=== PATIENT | female | born 1955 | race Caucasian/White ===

== ENCOUNTER 2018-01-31 12:59 | Observation (INO) | payer OTHER ==
[2018-01-31] MEDS ORDERED: Acetaminophen 325 MG Tab PO PRN (13:26)
[2018-01-31] MEDS ORDERED: Acetaminophen 650 MG Supp RECTAL PRN (13:27)
[2018-01-31] MEDS ORDERED: Bisacodyl 5 MG Tab PO ONE ×2 (15:00→21:00)
[2018-01-31] MEDS ORDERED: Polyethylene Glycol 3350 Powder 238 GM Bot PO ONE (17:00)
[2018-01-31] MEDS ORDERED: Carvedilol 25 MG Tab PO SCH (17:00)
--- NOTE | 2018-01-31 20:38 | PCM.HP ---
H&P History of Present Illness - General Date of Service: 01/31/18 Admit Problem/Dx: Admission Diagnosis/Problem Admission Diagnosis/Problem Weight loss, anemia, abdominal pain, vomiting Source of Information: Patient, Provider History Limitations: Reports: No Limitations - History of Present Illness Initial Comments - Free Text/Narative: This 62 year old white female is admitted for a bowel prep to undergo EGD and colonoscopy tomorrow for weight loss, vomiting, abdominal pain and anemia. She has never had an EGD. She underwent colonoscopy she says greater than eight years ago. She underwent right breast lumpectomy for a 2.3 cm infiltrating ductal carcinoma in 2014 with negative sentinel node. She had follow up breast radiation and chemotherapy. She is admitted for the prep as it is felt she can not do it at home. She has trouble with magnesium (low) and potassium (high). - Related Data Allergies/Adverse Reactions: Allergies Allergy/AdvReac Type Severity Reaction Status Date / Time hydrochlorothiazide AdvReac .hypokalemi Verified 02/18/16 12:06 a Home Medications: Home Meds Carvedilol [Coreg] 25 mg PO BID 08/22/15 [History] Fish Oil/[place]-3 Fatty Acids [Fish Oil 1,000 MG] 1 each PO BID 08/22/15 [History ] Pravastatin [Pravachol] 80 mg PO BEDTIME 08/22/15 [History] Urea [Urea 40% Crm] 1 applic TOP DAILY 08/22/15 [History] metFORMIN [Glucophage] 500 mg PO DAILY 08/22/15 [History] Cholecalciferol (Vitamin D3) [Vitamin D3] 2,000 unit PO DAILY 12/07/15 [History] Lactobacillus Rhamnosus GG [Culturelle] 1 cap PO BID #60 cap 12/18/15 [Rx] Acetaminophen [Pain Relief] 650 mg PO Q6HR PRN 01/28/18 [History] Cyanocobalamin (Vitamin B-12) [Vitamin B-12] 1,000 mcg SL DAILY 01/28/18 [ History] Magnesium 200 mg PO BID 01/28/18 [History] Lisinopril 20 mg PO BID 01/31/18 [History] Loperamide [Imodium] 2 mg PO TID 01/31/18 [History] Past Medical History HEENT History: Reports: Cataract, Impaired Vision Other HEENT History: wears glasses Cardiovascular History: Reports: High Cholesterol, Hypertension Gastrointestinal History: Reports: Jaundice Other Gastrointestinal History: as a child Genitourinary History: Reports: UTI, Recurrent 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: Musculoskeletal History: Reports: Amputation, Arthritis Neurological History: Reports: Neuropathy, Diabetic Endocrine/Metabolic History: Reports: Diabetes, Type II Hematologic History: Reports: Anemia, Blood Transfusion(s) Immunologic History: Reports: Other (See Below) Other Immunologic History: chemo Oncologic (Cancer) History: Reports: Breast - Infectious Disease History Infectious Disease History: Reports: C-Difficile Other Infectious Disease History: 2 years ago - Past Surgical History GI Surgical History: Reports: Colonoscopy Female Surgical History: Reports: Breast Biopsy Musculoskeletal Surgical History: Reports: Amputation Other Musculoskeletal Surgeries/Procedures:: left foot all 5 toes amputated Oncologic Surgical History: Reports: Biopsy of Breast, Lumpectomy Other Oncologic Surgeries/Procedures: Right side Dermatological Surgical History: Reports: Skin Biopsy, Skin Graft Social & Family History - Family History Family Medical History: Noncontributory HEENT: Reports: Impaired Vision Cardiac: Reports: CAD, [place], Pacemaker Other Cardiac Family History: father. sister Respiratory: Reports: Asthma Other Respiratory Family Hisory: daughter GI: Reports: Hiatal Hernia Other GI Family History: daughter Musculoskeletal: Reports: Other (See Below) Other Musculoskeletal Family History: scoliosis Neurological: Reports: Dementia Other Neurological Family History: grandmother Endocrine/Metabolic: Reports: Diabetes, type II Other Endocrine/Metabolic Family History: grandmother Oncologic: Reports: Lymphoma Other Oncologic Family History: granddaughter - Tobacco Use Smoking Status *Q: Former Smoker Years of Tobacco use: 20 Packs/Tins Daily: 1.5 Used Tobacco, but Quit: Yes Month Tobacco Last Used: 12 years Second Hand Smoke Exposure: No - Caffeine Use Caffeine Use: Reports: None - Alcohol Use Days Per Week of Alcohol Use: 0 Number of Drinks Per Day: 2 Total Drinks Per Week: 0 - Recreational Drug Use Recreational Drug Use: No H&P Review of Systems - Review of Systems: Review Of Systems: See Below General: Reports: Weight Loss, Other (Vomiting. ) HEENT: Reports: No Symptoms Pulmonary: Reports: No Symptoms Cardiovascular: Reports: No Symptoms Gastrointestinal: Reports: Abdominal Pain, Vomiting Genitourinary: Reports: No Symptoms Musculoskeletal: Reports: No Symptoms Skin: Reports: No Symptoms Psychiatric: Reports: No Symptoms Neurological: Reports: No Symptoms Hematologic/Lymphatic: Reports: No Symptoms Exam - Exam Exam: See Below - Vital Signs Vital Signs: Last Vital Signs Temp 100.2 F 01/31/18 19:00 Pulse 83 01/31/18 19:00 Resp 16 01/31/18 19:00 BP 128/51 L 01/31/18 19:00 Pulse Ox 94 L 01/31/18 19:00 Weight: 184 lb - Exam General: Alert, Oriented, Cooperative Lungs: Clear to Auscultation, Normal Respiratory Effort Cardiovascular: Regular Rate, Regular Rhythm GI/Abdominal Exam: Normal Bowel Sounds, Soft, Non-Tender, No Organomegaly, No Distention (Female) Exam: Other (Breast without masses. Well healed right breast scar. ) Back Exam: Normal Inspection, Full Range of Motion Extremities: Normal Inspection, Other (Axillae without masses. ) Skin: Warm, Dry, Intact Neuro Extensive - Mental Status: Alert, Oriented x3, Normal Mood/Affect, Normal Cognition Psychiatric: Alert, Normal Affect, Normal Mood - Patient Data Lab Results Last 24 hrs: Laboratory Results - last 24 hr 01/31/18 01/31/18 01/31/18 Range/Units 13:42 13:42 14:00 Hgb 8.9 L (12.0-15.0) g/dL Potassium 4.9 (3.6-5.2) mmol/L Magnesium 1.4 L (1.8-2.4) mg/dL Result Diagrams: 01/31/18 13:42 01/31/18 14:00 *Q Meaningful Use (ADM) - VTE *Q VTE Criteria *Q: - Stroke *Q Stroke Criteria *Q: - AMI *Q AMI Criteria *Q: - Problem List (1) Anemia SNOMED Code(s): 342816186 ICD Code: D64.9 - ANEMIA, UNSPECIFIED Status: Acute Current Visit: Yes Problem List Initiated/Reviewed/Updated: Yes Orders Last 24hrs: Active Orders 24 hr Category Date Time Status Admission Status [Patient Status] [ADT] Routine ADT 01/31/18 13:05 Active Vital Signs [RC] Q4H Care 01/31/18 13:22 Active Clear Liquid Diet [DIET] Diet 01/31/18 Dinner Active NPO After Midnight [Nothing per Oral After Midnight Diet 01/31/18 Dinner Active Diet] [DIET] Acetaminophen [Tylenol] Med 01/31/18 13:26 Active 650 mg PO Q4H PRN Acetaminophen [Tylenol] Med 01/31/18 13:27 Active 650 mg RECTAL Q4H PRN Bisacodyl [Dulcolax] Med 01/31/18 21:00 Once 10 mg PO ONETIME ONE Carvedilol [Coreg] Med 01/31/18 17:00 Active 25 mg PO BIDMEALS Cholecalciferol (Vitamin D3) [Vitamin D3] Med 02/01/18 09:00 Active 2,000 units PO DAILY Cyanocobalamin (Vitamin B12) [Vitamin B12] Med 02/01/18 09:00 Active 1,000 mcg PO DAILY Dextrose 5%-Lactated Ringers 1,000 ml Med 01/31/18 13:30 Active IV ASDIRECTED FLU Vacc [id number] 36Mos UP/PF [Fluzone Quad ] Med 02/01/18 16:00 Once 60 mcg IM ONETIME ONE Lactobacillus Rhamnosus GG [Culturelle] Med 01/31/18 21:00 Active 1 cap PO BID Magnesium Oxide Med 02/01/18 09:00 Active 200 mg PO DAILY Pravastatin [Pravachol] Med 01/31/18 21:00 Active 80 mg PO BEDTIME Medication Orders Acetaminophen (Tylenol) 650 mg PO Q4H PRN PRN Reason: PAIN Acetaminophen (Tylenol) 650 mg RECTAL Q4H PRN PRN Reason: PAIN Bisacodyl (Dulcolax) 10 mg PO ONETIME ONE Stop: 01/31/18 21:01 Carvedilol (Coreg) 25 mg PO BIDMEALS REPLACED BY [facility] Last Admin: 01/31/18 16:52 Dose: 25 mg Cholecalciferol (Vitamin D3) 2,000 units PO DAILY REPLACED BY [facility] Cyanocobalamin (Vitamin B12) 1,000 mcg PO DAILY REPLACED BY [facility] Dextrose/Lactated Ringer's (Dextrose 5%-Lactated Ringers) 1,000 mls @ 150 mls/ hr IV ASDIRECTED REPLACED BY [facility] Influenza Virus Vaccine (Fluzone Quad ) 60 mcg IM ONETIME ONE Stop: 02/01/18 16:01 Lactobacillus Rhamnosus (Culturelle) 1 cap PO BID REPLACED BY [facility] Magnesium Oxide (Magnesium Oxide) 200 mg PO DAILY REPLACED BY [facility] Pravastatin Sodium (Pravachol) 80 mg PO BEDTIME YAKOV Assessment/Plan Comment:: Anemia, weight loss, vomiting, abdominal pain. Plan: EGD, colonoscopy.
[2018-01-31] MEDS: Dextrose 5%-Lactated Ringers 1,000 ML IV SCH (20:53)
[2018-01-31] MEDS ORDERED: Lactobacillus Rhamnosus GG (Probiotic) Cap PO SCH (21:00)
[2018-01-31] MEDS ORDERED: Pravastatin 20 MG Tab PO SCH (21:00)
[2018-02-01] MEDS: Dextrose 5%-Lactated Ringers 1,000 ML IV SCH ×2 (03:18→09:33)
[2018-02-01] MEDS ORDERED: Magnesium Sulfate/Water 2 GM in Premix Bag 1 BAG IV ONE ×2 (06:27→07:00)
[2018-02-01] MEDS ORDERED: Midazolam 1 MG/ML 2 ML SDV ONE (08:23)
[2018-02-01] MEDS ORDERED: fentaNYL 100 MCG/2 ML SDV ONE (08:23)
[2018-02-01] MEDS ORDERED: Propofol 200 MG/20 ML SDV ONE ×2 (08:23→10:21)
[2018-02-01] MEDS ORDERED: Cholecalciferol (Vitamin D3) 1,000 Unit Tab PO SCH (09:00)
[2018-02-01] MEDS ORDERED: Magnesium Oxide 400 MG Tab PO SCH (09:00)
[2018-02-01] MEDS ORDERED: Cyanocobalamin (Vitamin B12) 1,000 MCG Tab PO SCH (09:00)
[2018-02-01 11:32] VITALS: BP 175/73
--- NOTE | 2018-02-01 14:01 | OR ---
DATE OF PROCEDURE: 02/01/2018 PREOPERATIVE DIAGNOSES: 1. Anemia. 2. Weight loss. 3. Vomiting. 4. Abdominal pain. POSTOPERATIVE DIAGNOSES: 1. Anemia. 2. Weight loss. 3. Vomiting. 4. Abdominal pain. 5. Hiatal hernia. 6. Pandiverticulosis. 7. No obvious cause for bleeding. PROCEDURES PERFORMED: 1. Esophagogastroduodenoscopy. 2. Colonoscopy to the cecum. SURGEON: Erik Almonte MD ANESTHESIA: IV anesthesia with monitored anesthesia care. INDICATION: This 62-year-old white female is here for upper and lower endoscopy because of anemia, weight loss, abdominal pain, and vomiting. I counseled her for the procedures, including risks and alternatives, and she gave her informed consent to proceed. DESCRIPTION OF PROCEDURE: The patient was placed in the left lateral decubitus position. IV anesthesia was administered by Anesthesia Service. Time-out was held. The flexible video Olympus upper endoscope was passed through her mouth, down her esophagus, and into her stomach. The scope was easily passed through the pylorus into the duodenum, reaching its third portion. The scope was then slowly withdrawn, examining the mucosa throughout. The duodenal mucosa appeared unremarkable. The scope was brought up to the pylorus. The antrum appeared unremarkable. The scope was retroflexed. The proximal stomach appeared unremarkable except for a hiatal hernia. The scope was straightened and brought up to this hiatal hernia. It was fairly small, approximately 2 cm. The GE junction appeared unremarkable. The scope was then brought up through the unremarkable-appearing esophagus and was removed. Next, a rectal exam was performed which was unremarkable. The flexible video Olympus colonoscope was introduced through her anus, up her rectum, and out her colon, all the way to the cecum. En route, we saw multiple both left and right-sided diverticula. There was no bleeding or inflammation associated with any of them. Once the cecum was reached, the scope was slowly withdrawn, examining the mucosa throughout. No additional mucosal abnormalities were noted. No neoplastic lesions were seen. The scope was retroflexed in the rectum, with the distal rectum appearing unremarkable. The scope was straightened and removed. She tolerated the procedure well. Erik Almonte MD /[id number]
[2018-02-01] MEDS ORDERED: FLU Vacc QS 2017-18 (36mos UP)/PF 60 MCG/0.5 ML Syringe IM ONE (16:00)
--- NOTE | 2018-02-03 11:28 | ANES ---
DATE OF SERVICE: 01/31/2018 ADDENDUM: I did give the patient a total of 400 mg of propofol for her procedure. Nav Rios CRNA /[id number]
== END 2018-02-01 12:50 | disposition home or self-care (01) ==
LOC: JP.MS 12:59 → UNDOADMIN 12:59 → JP.MS 13:05 → EDSTATUS 02-01 11:30 → UNDODISIN 02-01 12:50
PROVIDERS: ADMIT Surgery; ATTEND Surgery
DX: K44.9 Diaphragmatic hernia without obstruction or gangrene (principal); K57.30 Diverticulosis of large intestine without perforation or abscess without bleeding; I10 Essential (primary) hypertension; E78.00 Pure hypercholesterolemia, unspecified; E11.40 Type 2 diabetes mellitus with diabetic neuropathy, unspecified; F17.200 Nicotine dependence, unspecified, uncomplicated; Z88.8 Allergy status to other drugs, medicaments and biological substances; Z79.84 Long term (current) use of oral hypoglycemic drugs; Z79.899 Other long term (current) drug therapy; Z87.891 Personal history of nicotine dependence
CPT/HCPCS: 36415; 43235; 45378; 80048; 83735; 84132; 85018; 85025; A9270; J1642; J2250; J2704; J3010; J3475; J7042

== ENCOUNTER 2018-04-18 13:56 | Emergency (ER) | payer OTHER ==
[2018-04-18 14:25] VITALS: BP 141/65
--- NOTE | 2018-04-18 15:24 | EDM.PDOC ---
ED HPI GENERAL MEDICAL PROBLEM - General Chief Complaint: General Stated Complaint: WEAK, SHORTNESS OF BREATH, NO STRENGTH IN ARMS Time Seen by Provider: 04/18/18 14:55 Source of Information: Reports: Patient, Family History Limitations: Reports: No Limitations - History of Present Illness INITIAL COMMENTS - FREE TEXT/NARRATIVE: Raquel presents today with complaints of generalized significant weakness, chills , feeling tired and sleepy, no appetite and dull ache to her head for three days. She denies fever, nausea, vomiting, change in bowel and bladder function, wounds , rashes or recent injury. - Related Data Allergies Allergy/AdvReac Type Severity Reaction Status Date / Time hydrochlorothiazide AdvReac .hypokalemi Verified 04/18/18 14:15 a Home Meds: Home Meds Carvedilol [Coreg] 25 mg PO BID 08/22/15 [History] Fish Oil/[place]-3 Fatty Acids [Fish Oil 1,000 MG] 1,000 mg PO BID 08/22/15 [ History] Pravastatin [Pravachol] 80 mg PO BEDTIME 08/22/15 [History] Urea [Urea 40% Crm] 1 applic TOP DAILY 08/22/15 [History] metFORMIN [Glucophage] 500 mg PO DAILY 08/22/15 [History] Cyanocobalamin (Vitamin B-12) [Vitamin B-12] 1,000 mcg SL DAILY 01/28/18 [ History] Loperamide [Imodium] 2 mg PO QID PRN 01/31/18 [History] Acetaminophen [Tylenol] 650 mg PO Q4H PRN tablet 02/01/18 [Rx] Cholecalciferol (Vitamin D3) [Vitamin D3] 2,000 units PO DAILY tablet 02/01/18 [Rx] Lactobacillus Rhamnosus GG [Culturelle] 1 cap PO BID cap 02/01/18 [Rx] Magnesium Oxide 250 mg PO DAILY 02/23/18 [History] Vitamin E 1,000 unit PO DAILY 03/19/18 [History] Zinc 50 mg PO DAILY 03/19/18 [History] Past Medical History HEENT History: Reports: Cataract, Impaired Vision Other HEENT History: wears glasses Cardiovascular History: Reports: High Cholesterol, Hypertension Gastrointestinal History: Reports: Jaundice Other Gastrointestinal History: as a child Genitourinary History: Reports: UTI, Recurrent 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: Musculoskeletal History: Reports: Amputation, Arthritis Neurological History: Reports: Neuropathy, Diabetic Endocrine/Metabolic History: Reports: Diabetes, Type II Hematologic History: Reports: Anemia, Blood Transfusion(s) Immunologic History: Reports: Other (See Below) Other Immunologic History: chemo Oncologic (Cancer) History: Reports: Breast - Infectious Disease History Infectious Disease History: Reports: C-Difficile Other Infectious Disease History: 2 years ago - Past Surgical History GI Surgical History: Reports: Colonoscopy Female Surgical History: Reports: Breast Biopsy Musculoskeletal Surgical History: Reports: Amputation Other Musculoskeletal Surgeries/Procedures:: left foot all 5 toes amputated Oncologic Surgical History: Reports: Biopsy of Breast, Lumpectomy Other Oncologic Surgeries/Procedures: Right side Dermatological Surgical History: Reports: Skin Biopsy, Skin Graft Social & Family History - Family History Family Medical History: Noncontributory HEENT: Reports: Impaired Vision Cardiac: Reports: CAD, [place], Pacemaker Other Cardiac Family History: father. sister Respiratory: Reports: Asthma Other Respiratory Family Hisory: daughter GI: Reports: Hiatal Hernia Other GI Family History: daughter Musculoskeletal: Reports: Other (See Below) Other Musculoskeletal Family History: scoliosis Neurological: Reports: Dementia Other Neurological Family History: grandmother Endocrine/Metabolic: Reports: Diabetes, type II Other Endocrine/Metabolic Family History: grandmother Oncologic: Reports: Lymphoma Other Oncologic Family History: granddaughter - Tobacco Use Smoking Status *Q: Never Smoker - Caffeine Use Caffeine Use: Reports: None ED ROS GENERAL - Review of Systems Review Of Systems: See Below Constitutional: Reports: Chills, Malaise, Weakness, Fatigue, Decreased Appetite , Weight Loss. Denies: Fever, Night Sweats, Diaphoresis HEENT: Reports: No Symptoms Respiratory: Reports: Shortness of Breath, Other (SOB with activity ). Denies: Wheezing, Cough, Sputum Cardiovascular: Denies: Chest Pain, Blood Pressure Problem, Dyspnea on Exertion , Edema, Lightheadedness, Palpitations, PND, Syncope Endocrine: Reports: Fatigue GI/Abdominal: Reports: Abdominal Pain, Other (Pain to RUQ, she reports it is due to cancer and has not worsened. ). Denies: Black Stool, Bloody Stool, Constipation, Diarrhea, Difficulty Swallowing, Flatus, Hematemesis, Hematochezia , Nausea, Vomiting : Denies: Flank Pain, Frequency, Hematuria, Urgency, Urinary Retention Musculoskeletal: Denies: Joint Pain, Joint Swelling, Muscle Pain, Muscle Stiffness Skin: Reports: Pallor, Dryness. Denies: Jaundice, Diaphoresis, Bruising, Pruritis, Rash, Erythema, Wound, Lesions Neurological: Reports: Headache, Weakness, Other. Denies: Confusion, Dizziness , Numbness, Tingling Psychiatric: Reports: No Symptoms Hematologic/Lymphatic: Reports: No Symptoms Immunologic: Reports: No Symptoms ED EXAM, GENERAL - Physical Exam Exam: See Below Free Text/Narrative:: Raquel presents to the emergency room today with complaints of generalized significant weakness, chills, feeling tired and sleepy, no appetite and dull ache to her head for three days. She denies fever, nausea, vomiting, change in bowel and bladder function, wounds , rashes or recent injury. She is currently taking an oral chemotherapy agent for primary breast cancer with metastasis to the liver. History of anemia and blood tranfusions. Exam Limited By: No Limitations General Appearance: Alert, WD/WN, Moderate Distress, Other (Very weak) Eye Exam: Bilateral Eye: EOMI, Normal Inspection, PERRL Ears: Normal External Exam, Normal Canal, Hearing Grossly Normal, Normal TMs Ear Exam: Bilateral Ear: Auricle Normal, Canal Normal, TM normal Nose: Normal Inspection, Normal Mucosa, No Blood Throat/Mouth: Normal Inspection, Normal Lips, Normal Gums, Normal Oropharynx, Normal Voice, No Airway Compromise, Other (Dentures in place. ) Head: Atraumatic, Normocephalic Neck: Normal Inspection, Supple, Non-Tender, Full Range of Motion. No: Lymphadenopathy (R), Lymphadenopathy (L) Respiratory/Chest: No Respiratory Distress, Lungs Clear, Normal Breath Sounds, No Accessory Muscle Use, Chest Non-Tender Cardiovascular: Normal Peripheral Pulses, Regular Rate, Rhythm, No Murmur, No Rub, Other (Noted bilateral lower extremity edema 2+ from knees to feet. ) Peripheral Pulses: 2+: Radial (L), Radial (R) GI/Abdominal: Normal Bowel Sounds, Soft, No Distention, Tender, Other ( Tenderness over RUQ). No: Distended, Guarding, Rigid, Rebound Back Exam: Normal Inspection, Full Range of Motion. No: CVA Tenderness (R), CVA Tenderness (L) Extremities: Normal Inspection, Normal Range of Motion, Non-Tender, Slow Capillary Refill, Pallor, Other (edema 2+ bilateral lower extremities) Neurological: Alert, Oriented, Normal Cognition, No Motor/Sensory Deficits, Other (Reflexes present) Psychiatric: Normal Affect, Normal Mood Skin Exam: Warm, Dry, Intact, No Rash, Pallor Lymphatic: No Adenopathy Course - Vital Signs Last Recorded V/S: Last Vital Signs Temp 37.2 C 04/18/18 14:23 Pulse 72 04/18/18 14:23 Resp 14 04/18/18 14:23 BP 141/65 H 04/18/18 14:23 Pulse Ox 98 04/18/18 14:23 - Orders/Labs/Meds Orders: Active Orders 24 hr Category Date Time Status UA W/MICROSCOPIC [URIN] Stat Lab 04/18/18 15:15 Ordered Saline Lock Insert [OM.PC] Routine Oth 04/18/18 16:16 Ordered Labs: Laboratory Tests 04/18/18 04/18/18 04/18/18 Range/Units 15:15 15:26 15:26 WBC 8.1 (4.5-11.0) K/uL RBC 2.82 L (3.30-5.50) M/uL Hgb 8.2 L (12.0-15.0) g/dL Hct 28.2 L (36.0-48.0) % MCV 100 H (80-98) fL MCH 29 (27-31) pg MCHC 29 L (32-36) % Plt Count 392 (150-400) K/uL Neut % (Auto) 76 H (36-66) % Lymph % (Auto) 12 L (24-44) % Trego % (Auto) 11 H (2-6) % Eos % (Auto) 1 L (2-4) % Baso % (Auto) 0 (0-1) % Sodium 136 L (140-148) mmol/L Potassium 5.0 (3.6-5.2) mmol/L Chloride 97 L (100-108) mmol/L Carbon Dioxide 26 (21-32) mmol/L Anion Gap 18.0 H (5.0-14.0) mmol/L BUN 42 H D (7-18) mg/dL Creatinine 1.2 H (0.6-1.0) mg/dL Est Cr Clr Drug Dosing 41.44 mL/min Estimated GFR (MDRD) 45 L (>60) Glucose 81 (74-106) mg/dL Calcium 8.1 L (8.5-10.1) mg/dL Magnesium 2.1 D (1.8-2.4) mg/dL Total Bilirubin 0.5 (0.2-1.0) mg/dL AST 30 (15-37) U/L ALT 16 D (12-78) U/L Alkaline Phosphatase 417 H D (46-116) U/L Ammonia (11-32) mmol/L Total Protein 7.0 (6.4-8.2) g/dL Albumin 1.4 L (3.4-5.0) g/dL Globulin 5.6 H (2.3-3.5) g/dL Albumin/Globulin Ratio 0.3 L (1.2-2.2) TSH, Ultra Sensitive 3.016 (0.358-3.740) uIU/mL Urine Color Yellow Urine Appearance Clear Urine pH 5.0 (4.5-8.0) Ur Specific Valentine 1.015 (1.008-1.030) Urine Protein Negative (NEGATIVE) mg/dL Urine Glucose (UA) Normal (NEGATIVE) mg/dL Urine Ketones Negative (NEGATIVE) mg/dL Urine Occult Blood Negative (NEGATIVE) Urine Nitrite Negative (NEGATIVE) Urine Bilirubin Negative (NEGATIVE) Urine Urobilinogen Normal (NORMAL) mg/dL Ur Leukocyte Esterase Moderate (NEGATIVE) Urine RBC 0-5 (0-5) Urine WBC 0-5 (0-5) Ur Epithelial Cells Few Amorphous Sediment Rare Urine Bacteria Not seen Urine Mucus Not seen 04/18/18 Range/Units 16:16 WBC (4.5-11.0) K/uL RBC (3.30-5.50) M/uL Hgb (12.0-15.0) g/dL Hct (36.0-48.0) % MCV (80-98) fL MCH (27-31) pg MCHC (32-36) % Plt Count (150-400) K/uL Neut % (Auto) (36-66) % Lymph % (Auto) (24-44) % Trego % (Auto) (2-6) % Eos % (Auto) (2-4) % Baso % (Auto) (0-1) % Sodium (140-148) mmol/L Potassium (3.6-5.2) mmol/L Chloride (100-108) mmol/L Carbon Dioxide (21-32) mmol/L Anion Gap (5.0-14.0) mmol/L BUN (7-18) mg/dL Creatinine (0.6-1.0) mg/dL Est Cr Clr Drug Dosing mL/min Estimated GFR (MDRD) (>60) Glucose (74-106) mg/dL Calcium (8.5-10.1) mg/dL Magnesium (1.8-2.4) mg/dL Total Bilirubin (0.2-1.0) mg/dL AST (15-37) U/L ALT (12-78) U/L Alkaline Phosphatase (46-116) U/L Ammonia 7 L (11-32) mmol/L Total Protein (6.4-8.2) g/dL Albumin (3.4-5.0) g/dL Globulin (2.3-3.5) g/dL Albumin/Globulin Ratio (1.2-2.2) TSH, Ultra Sensitive (0.358-3.740) uIU/mL Urine Color Urine Appearance Urine pH (4.5-8.0) Ur Specific Valentine (1.008-1.030) Urine Protein (NEGATIVE) mg/dL Urine Glucose (UA) (NEGATIVE) mg/dL Urine Ketones (NEGATIVE) mg/dL Urine Occult Blood (NEGATIVE) Urine Nitrite (NEGATIVE) Urine Bilirubin (NEGATIVE) Urine Urobilinogen (NORMAL) mg/dL Ur Leukocyte Esterase (NEGATIVE) Urine RBC (0-5) Urine WBC (0-5) Ur Epithelial Cells Amorphous Sediment Urine Bacteria Urine Mucus Meds: Medications Discontinued Medications Generic Name Dose Route Start Last Admin Trade Name Freq PRN Reason Stop Dose Admin Sodium Chloride 1,000 mls @ 500 mls/hr 04/18/18 16:30 04/18/18 16:46 Normal Saline IV 500 mls/hr ASDIRECTED YAKOV Administration Sodium Chloride 10 ml 04/18/18 16:16 04/18/18 16:46 Saline Flush FLUSH 10 ml ASDIRECTED PRN Administration Keep Vein Open - Re-Assessments/Exams Free Text/Narrative Re-Assessment/Exam: 04/18/18 16:18 Lab work completed reviewed. We will add on an ammonia level. UA pending. We will administer sodium chloride 1000ml IV over 2 hours for hydration. Use of home health, meals on weals, SSN/SSBN ASSISTANT NAVIGATOR services and use of protein powder/ drinks safe for diabetes discussed with patient and her family. Imaging of brain pending this week for evaluation of metastasis. 04/18/18 17:20 Patient resting, states she is feeling better. UA negative, ammonia level normal. Patient will be discharged to home with family. Dr. Ramirez in agreement with plan. Departure - Departure Time of Disposition: 17:33 Disposition: Home, Self-Care 01 Clinical Impression: Dehydration, Weakness generalized, Liver metastasis Breast cancer Qualifiers: Breast location: unspecified site of breast Laterality: unspecified laterality Qualified Code(s): C50.919 - Malignant neoplasm of unspecified site of unspecified female breast - Discharge Information Instructions: Weakness, [id number], Dehydration, Adult, [id number] Referrals: Ansley Bolden PA [Primary Care Provider] - Forms: ED Department Discharge Additional Instructions: You have been evaluated and treated for dehydration, generalized weakness with a history of breast cancer and liver metastasis. Try to push oral fluids, protein. Follow up with Ansley SANTIAGO. Think about use home health, meals on weals, SSN/SSBN ASSISTANT NAVIGATOR services and use of protein powder/drinks safe for diabetes if appropriate as determined by your primary provider. Take your medications as prescribed. Imaging of brain pending this week. Return for worsening, issues or concern. - My Orders Last 24 Hours: My Active Orders 04/18/18 15:15 UA W/MICROSCOPIC [URIN] Stat 04/18/18 16:16 Saline Lock Insert [OM.PC] Routine - Assessment/Plan Last 24 Hours: My Active Orders 04/18/18 15:15 UA W/MICROSCOPIC [URIN] Stat 04/18/18 16:16 Saline Lock Insert [OM.PC] Routine Assessment:: Dehydration Breast cancer Liver metastasis Generalized weakness Plan: Patient evaluated and treated for dehydration, generalized weakness with a history of breast cancer and liver metastasis. Try to push oral fluids, protein. Follow up with Ansley SANTIAGO. Think about use home health, meals on weals, SSN/SSBN ASSISTANT NAVIGATOR services and use of protein powder/drinks safe for diabetes if appropriate as determined by your primary provider. Take your medications as prescribed. Imaging of brain pending this week. Return for worsening, issues or concern.
[2018-04-18] MEDS ORDERED: Sodium Chloride 0.9% 10 ML Syringe FLUSH PRN (16:16)
[2018-04-18] MEDS ORDERED: Sodium Chloride 0.9% 1,000 ML IV SCH (16:30)
== END 2018-04-18 19:12 | disposition home or self-care (01) ==
LOC: JP.ED 13:56
DX: E86.0 Dehydration (principal); C78.7 Secondary malignant neoplasm of liver and intrahepatic bile duct; C50.919 Malignant neoplasm of unspecified site of unspecified female breast; E11.9 Type 2 diabetes mellitus without complications; I10 Essential (primary) hypertension; E78.00 Pure hypercholesterolemia, unspecified; Z79.899 Other long term (current) drug therapy; Z88.8 Allergy status to other drugs, medicaments and biological substances; Z79.84 Long term (current) use of oral hypoglycemic drugs
CPT/HCPCS: 36415; 80053; 81001; 82140; 83735; 84443; 85025; 96360; 96361; 99285; J7040; J7050

== ENCOUNTER 2018-04-21 11:10 | Inpatient (IN) | payer OTHER ==
[2018-04-21] MEDS ORDERED: Sodium Chloride 0.9% 10 ML Syringe FLUSH PRN (11:40)
--- NOTE | 2018-04-21 11:47 | EDM.PDOC ---
ED HPI GENERAL MEDICAL PROBLEM - General Chief Complaint: General Stated Complaint: RETAINING FLUID Time Seen by Provider: 04/21/18 11:28 Source of Information: Reports: Patient, Family, Old Records, Provider, RN Notes Reviewed History Limitations: Reports: No Limitations - History of Present Illness INITIAL COMMENTS - FREE TEXT/NARRATIVE: 62-year-old female presents to the emergency department today complaint of shortness of breath, she has a known history of breast cancer is currently being treated chemotherapy was evaluated in the emergency department 4 days prior for generalized weakness at that time no obvious etiology was revealed on her blood work. She was in oncology clinic today evaluated by Dr. Laboy complained of significant shortness of breath that has progressively gotten worse as well as lower extremity edema left greater than right. - Related Data Allergies Allergy/AdvReac Type Severity Reaction Status Date / Time hydrochlorothiazide AdvReac .hypokalemi Verified 04/18/18 14:15 a Home Meds: Home Meds Carvedilol [Coreg] 25 mg PO BID 08/22/15 [History] Fish Oil/[place]-3 Fatty Acids [Fish Oil 1,000 MG] 1,000 mg PO BID 08/22/15 [ History] Pravastatin [Pravachol] 80 mg PO BEDTIME 08/22/15 [History] Urea [Urea 40% Crm] 1 applic TOP DAILY 08/22/15 [History] metFORMIN [Glucophage] 500 mg PO DAILY 08/22/15 [History] Cyanocobalamin (Vitamin B-12) [Vitamin B-12] 1,000 mcg SL DAILY 01/28/18 [ History] Loperamide [Imodium] 2 mg PO QID PRN 01/31/18 [History] Acetaminophen [Tylenol] 650 mg PO Q4H PRN tablet 02/01/18 [Rx] Cholecalciferol (Vitamin D3) [Vitamin D3] 2,000 units PO DAILY tablet 02/01/18 [Rx] Lactobacillus Rhamnosus GG [Culturelle] 1 cap PO BID cap 02/01/18 [Rx] Magnesium Oxide 500 mg PO TID 02/23/18 [History] Vitamin E 1,000 unit PO DAILY 03/19/18 [History] Zinc 50 mg PO DAILY 03/19/18 [History] Capecitabine 1,500 mg PO BID 04/21/18 [History] Past Medical History HEENT History: Reports: Cataract, Impaired Vision Other HEENT History: wears glasses Cardiovascular History: Reports: High Cholesterol, Hypertension Gastrointestinal History: Reports: Jaundice Other Gastrointestinal History: as a child Genitourinary History: Reports: UTI, Recurrent PATCHER History: Reports: Musculoskeletal History: Reports: Amputation, Arthritis Neurological History: Reports: Neuropathy, Diabetic Endocrine/Metabolic History: Reports: Diabetes, Type II Hematologic History: Reports: Anemia, Blood Transfusion(s) Immunologic History: Reports: Other (See Below) Other Immunologic History: chemo Oncologic (Cancer) History: Reports: Breast - Infectious Disease History Infectious Disease History: Reports: C-Difficile Other Infectious Disease History: 2 years ago - Past Surgical History GI Surgical History: Reports: Colonoscopy Female Surgical History: Reports: Breast Biopsy Musculoskeletal Surgical History: Reports: Amputation Other Musculoskeletal Surgeries/Procedures:: left foot all 5 toes amputated Oncologic Surgical History: Reports: Biopsy of Breast, Lumpectomy Other Oncologic Surgeries/Procedures: Right side Dermatological Surgical History: Reports: Skin Biopsy, Skin Graft Social & Family History - Family History Family Medical History: Noncontributory HEENT: Reports: Impaired Vision Cardiac: Reports: CAD, PA, Pacemaker Other Cardiac Family History: father. sister Respiratory: Reports: Asthma Other Respiratory Family Hisory: daughter GI: Reports: Hiatal Hernia Other GI Family History: daughter Musculoskeletal: Reports: Other (See Below) Other Musculoskeletal Family History: scoliosis Neurological: Reports: Dementia Other Neurological Family History: grandmother Endocrine/Metabolic: Reports: Diabetes, type II Other Endocrine/Metabolic Family History: grandmother Oncologic: Reports: Lymphoma Other Oncologic Family History: granddaughter - Tobacco Use Smoking Status *Q: Never Smoker - Caffeine Use Caffeine Use: Reports: Soda - Recreational Drug Use Recreational Drug Use: No ED ROS GENERAL - Review of Systems Review Of Systems: See Below Constitutional: Reports: Chills HEENT: Reports: No Symptoms Respiratory: Reports: Shortness of Breath. Denies: Cough, Sputum Cardiovascular: Reports: Dyspnea on Exertion. Denies: Chest Pain GI/Abdominal: Reports: No Symptoms : Reports: No Symptoms Musculoskeletal: Reports: No Symptoms Skin: Reports: No Symptoms Neurological: Reports: No Symptoms Psychiatric: Reports: No Symptoms ED EXAM, GENERAL - Physical Exam Exam: See Below Free Text/Narrative:: General: Female, not in any distress, alert and oriented x3 HEENT: head is atraumatic normocephalic, eyes pupils equal round reactive to light, sclera clear no conjunctivitis appreciated. Ears tympanic membranes clear and mahan landmarks and light reflex are present bilaterally canals are clear. Nose no septal deviation, nares are clear, no blood present. Mouth mucosa is moist and pink no erythema or exudate noted in soft palate, tongue is midline uvula is midline, dentures in place. Neck: Supple no thyromegaly no tracheal deviation. Nodes: Cervical nodes subclavicular nodes nontender no palpable lymphadenopathy noted. Lungs: clear to auscultation bilaterally with symmetrical respirations, no adventitious noise appreciated. CV: Regular rate and rhythm S1 and S2 appreciated grade 2/6 systolic ejection murmur appreciated, no rubs or gallops noted. Abdomen: Soft, nontender, no palpable masses or organomegaly appreciated, mild distention no guarding bowel sounds are present, . Neuro: Cranial nerves II through XII grossly intact Skin: Warm and dry, intact Extremities: +2 pitting edema bilaterally with pedal pulse at +1. Course - Vital Signs Last Recorded V/S: Last Vital Signs Temp 98.2 F 04/21/18 15:29 Pulse 76 04/21/18 15:29 Resp 16 04/21/18 15:29 BP 106/57 L 04/21/18 15:29 Pulse Ox 97 04/21/18 15:29 - Orders/Labs/Meds Orders: Active Orders 24 hr Category Date Time Status Cardiac Monitoring [RC] .As Directed Care 04/21/18 11:40 Active EKG Documentation Completion [RC] ASDIRECTED Care 04/21/18 11:41 Active Peripheral IV Care [RC] . DIRECTED Care 04/21/18 11:41 Active Iopamidol [Isovue-370 (76%)] Med 04/21/18 13:30 Active 100 ml IV . DIRECTED Sodium Chloride 0.9% [Normal Saline] 90 ml Med 04/21/18 13:30 Active IV ASDIRECTED Sodium Chloride 0.9% [Saline Flush] Med 04/21/18 11:40 Active 10 ml FLUSH ASDIRECTED PRN Peripheral IV Insertion Adult [OM.PC] Stat Oth 04/21/18 11:40 Ordered Saline Lock Insert [OM.PC] Stat Oth 04/21/18 11:40 Ordered Transfuse Red Blood Cells [COMM] Stat Ot 04/21/18 13:21 Ordered EKG 12 Lead [EK] Stat Ther 04/21/18 11:41 Ordered Medication Orders Sodium Chloride (Normal Saline) 90 mls @ 4 mls/sec IV ASDIRECTED YAKOV Last Admin: 04/21/18 14:25 Dose: 4 mls/sec Iopamidol (Isovue-370 (76%)) 100 ml IV . DIRECTED YAKOV Last Admin: 04/21/18 14:25 Dose: 100 ml Sodium Chloride (Saline Flush) 10 ml FLUSH ASDIRECTED PRN PRN Reason: Keep Vein Open Last Admin: 04/21/18 12:31 Dose: 10 ml Labs: Laboratory Tests 04/21/18 04/21/18 04/21/18 Range/Units 11:50 11:50 11:50 WBC 6.5 (4.5-11.0) K/uL RBC 2.19 L (3.30-5.50) M/uL Hgb 6.3 L* (12.0-15.0) g/dL Hct 22.0 L (36.0-48.0) % MCV 101 H (80-98) fL MCH 29 (27-31) pg MCHC 29 L (32-36) % Plt Count 304 (150-400) K/uL Neut % (Auto) 78 H (36-66) % Lymph % (Auto) 12 L (24-44) % [place] % (Auto) 9 H (2-6) % Eos % (Auto) 2 (2-4) % Baso % (Auto) 0 (0-1) % D-Dimer, Quantitative 2820 H (0.0-400.0) ng/mL Sodium 141 (140-148) mmol/L Potassium 4.6 (3.6-5.2) mmol/L Chloride 102 (100-108) mmol/L Carbon Dioxide 28 (21-32) mmol/L Anion Gap 11.2 (5.0-14.0) mmol/L BUN 23 H (7-18) mg/dL Creatinine 1.1 H (0.6-1.0) mg/dL Est Cr Clr Drug Dosing 47.10 mL/min Estimated GFR (MDRD) 50 L (>60) Glucose 200 H (74-106) mg/dL Lactic Acid (0.4-2.0) mmol/L Calcium 7.5 L (8.5-10.1) mg/dL Total Bilirubin 0.4 (0.2-1.0) mg/dL AST 26 (15-37) U/L ALT 21 (12-78) U/L Alkaline Phosphatase 415 H (46-116) U/L Troponin I < 0.017 (0.000-0.056) ng/mL NT-Pro-B Natriuret Pep 1702 H (5-125) pg/mL Total Protein 6.0 L (6.4-8.2) g/dL Albumin 1.2 L (3.4-5.0) g/dL Globulin 4.8 H (2.3-3.5) g/dL Albumin/Globulin Ratio 0.3 L (1.2-2.2) Blood Type Gel Antibody Screen Crossmatch 04/21/18 04/21/18 Range/Units 11:50 11:50 WBC (4.5-11.0) K/uL RBC (3.30-5.50) M/uL Hgb (12.0-15.0) g/dL Hct (36.0-48.0) % MCV (80-98) fL MCH (27-31) pg MCHC (32-36) % Plt Count (150-400) K/uL Neut % (Auto) (36-66) % Lymph % (Auto) (24-44) % [place] % (Auto) (2-6) % Eos % (Auto) (2-4) % Baso % (Auto) (0-1) % D-Dimer, Quantitative (0.0-400.0) ng/mL Sodium (140-148) mmol/L Potassium (3.6-5.2) mmol/L Chloride (100-108) mmol/L Carbon Dioxide (21-32) mmol/L Anion Gap (5.0-14.0) mmol/L BUN (7-18) mg/dL Creatinine (0.6-1.0) mg/dL Est Cr Clr Drug Dosing mL/min Estimated GFR (MDRD) (>60) Glucose (74-106) mg/dL Lactic Acid 2.3 H (0.4-2.0) mmol/L Calcium (8.5-10.1) mg/dL Total Bilirubin (0.2-1.0) mg/dL AST (15-37) U/L ALT (12-78) U/L Alkaline Phosphatase (46-116) U/L Troponin I (0.000-0.056) ng/mL NT-Pro-B Natriuret Pep (5-125) pg/mL Total Protein (6.4-8.2) g/dL Albumin (3.4-5.0) g/dL Globulin (2.3-3.5) g/dL Albumin/Globulin Ratio (1.2-2.2) Blood Type O NEGATIVE Gel Antibody Screen Negative Crossmatch See Detail Meds: Medications Generic Name Dose Route Start Last Admin Trade Name Freq PRN Reason Stop Dose Admin Sodium Chloride 90 mls @ 4 mls/sec 04/21/18 13:30 04/21/18 14:25 Normal Saline IV 4 mls/sec ASDIRECTED YAKOV Administration Iopamidol 100 ml 04/21/18 13:30 04/21/18 14:25 Isovue-370 (76%) IV 100 ml . DIRECTED YAKOV Administration Sodium Chloride 10 ml 04/21/18 11:40 04/21/18 12:31 Saline Flush FLUSH 10 ml ASDIRECTED PRN Administration Keep Vein Open Departure - Departure Time of Disposition: 15:50 Disposition: Admitted As Inpatient 65 Condition: Poor Clinical Impression: Anemia Qualifiers: Anemia type: iron deficiency Breast cancer Qualifiers: Breast location: unspecified site of breast Laterality: unspecified laterality Qualified Code(s): C50.919 - Malignant neoplasm of unspecified site of unspecified female breast - Discharge Information Referrals: Ansley Bolden PA [Primary Care Provider] - Forms: ED Department Discharge - My Orders Last 24 Hours: My Active Orders 04/21/18 11:40 Cardiac Monitoring [RC] .As Directed Sodium Chloride 0.9% [Saline Flush] 10 ml FLUSH ASDIRECTED PRN Peripheral IV Insertion Adult [OM.PC] Stat Saline Lock Insert [OM.PC] Stat 04/21/18 11:41 EKG Documentation Completion [RC] ASDIRECTED Peripheral IV Care [RC] . DIRECTED EKG 12 Lead [EK] Stat 04/21/18 13:21 Transfuse Red Blood Cells [COMM] Stat 04/21/18 13:30 Iopamidol [Isovue-370 (76%)] 100 ml IV . DIRECTED Sodium Chloride 0.9% [Normal Saline] 90 ml IV ASDIRECTED - Assessment/Plan Last 24 Hours: My Active Orders 04/21/18 11:40 Cardiac Monitoring [RC] .As Directed Sodium Chloride 0.9% [Saline Flush] 10 ml FLUSH ASDIRECTED PRN Peripheral IV Insertion Adult [OM.PC] Stat Saline Lock Insert [OM.PC] Stat 04/21/18 11:41 EKG Documentation Completion [RC] ASDIRECTED Peripheral IV Care [RC] . DIRECTED EKG 12 Lead [EK] Stat 04/21/18 13:21 Transfuse Red Blood Cells [COMM] Stat 04/21/18 13:30 Iopamidol [Isovue-370 (76%)] 100 ml IV . DIRECTED Sodium Chloride 0.9% [Normal Saline] 90 ml IV ASDIRECTED Plan: Assessment Acuity = acute Site and laterality = anemia macro chromic with diastolic congestive heart failure complicated patient with known history of breast cancer currently on chemotherapy Etiology = unclear etiology Manifestations = dyspnea Location of injury = Home Lab values = hemoglobin low at 6.3 consistent back chromic anemia d-dimer elevated 2820 of unclear significance creatinine elevated at 1.1 consistent with chronic renal failure stage GIIIA lactic acid elevated at 2.3 consistent lactic acidosis BNP elevated at 12/06/01 consistent with fluid overload type pattern albumin low at 1.[address] scan shows no pulmonary embolism or occlusion of the venous system EKG demonstrates sinus rhythm with a first-degree block Plan Discuss case hospitalist stonemason helper he agreed to come and evaluate the patient emergency department for admission transfusion of 1 unit packed red blood cells was initiated This note was dictated using [employer] voice recognition software please call with any questions on syntax or grammar.
--- NOTE | 2018-04-21 12:41 | CR ---
Chest 2V INDICATION: sob. FINDINGS: Comparison 12/08/2015. Left subclavian central line has been removed. Interval clearing of ri ght upper lobe infiltrates. No focal consolidation on today's exam. Aortic calcification. Hypertrophi c changes thoracic spine. Chest otherwise negative.
[2018-04-21] MEDS ORDERED: Sodium Chloride 0.9% 90 ML IV SCH (13:30)
[2018-04-21] MEDS ORDERED: Iopamidol 755 Mg/ML 100 ML Bottle IV SCH (13:30)
--- NOTE | 2018-04-21 14:57 | CT ---
Ang Abdomen Aorta w Bi Runoff, Ang Chest INDICATION: Breast canclevated [id number],eased leg swelling COMPARISON: MR abdomen 03/11/2018 FINDINGS: No acute pulmonary artery embolism. Centrilobular and paraseptal emphysematous changes most marked in the upper lobes. Skin thickening and edema of the right breast, presumably from post radia tion changes. Mild cardiac enlargement. No adenopathy in the chest. Nodular thyroid gland. Arterial c alcifications. Innumerable low-attenuation lesions throughout the liver, the largest of which is in the right hepati c lobe and measures 14.9 cm in greatest dimension. Hepatomegaly. Large stones in the gallbladder. Sli ght nodularity of the left adrenal gland. Prominent zach hepatis lymph nodes, however these are not enlarged by CT size criteria. Small cystic lesion in the pancreatic body with prominent main pancreat ic duct. Small cystic lesion in the pancreatic head. Please see previously reported MRI. Probable algaaciq rine fibroid. Scattered colonic diverticula. Moderate calcified atheromatous plaque in the distal abdominal aorta. Celiac, SMA, and REHANA are patent . There are moderate stenoses at the origins of the SMA and REHANA. High-grade stenosis at the origin of the left renal artery. Moderate stenosis at the origin of the right renal artery. Moderate stenosis right common femoral artery due to calcified atheromatous plaque. There is 3 vessel runoff to the lev el of the right ankle. Moderate stenosis due to calcified atherosclerotic plaque in the left common f emoral artery. Moderate multifocal stenoses left popliteal artery. There is 3 vessel runoff to the le mimi of the left ankle. IMPRESSION: 1. Innumerable presumed hepatic metastases. 2. Stable pancreatic cystic lesions. Please see dedicated MRI of the abdomen report. 3. Moderate stenoses at the origins of the SMA and REHANA. Moderate stenosis at the origin of the right renal artery. 4. Moderate stenosis right common femoral artery and left common femoral artery. 5. Three-vessel runoff to the level of the left and right ankle. 6. No acute PE. 7. Incidental findings as above.
--- NOTE | 2018-04-21 14:57 | CT ---
Ang Abdomen Aorta w Bi Runoff, Ang Chest INDICATION: Breast canclevated [id number],eased leg swelling COMPARISON: MR abdomen 03/11/2018 FINDINGS: No acute pulmonary artery embolism. Centrilobular and paraseptal emphysematous changes most marked in the upper lobes. Skin thickening and edema of the right breast, presumably from post radia tion changes. Mild cardiac enlargement. No adenopathy in the chest. Nodular thyroid gland. Arterial c alcifications. Innumerable low-attenuation lesions throughout the liver, the largest of which is in the right hepati c lobe and measures 14.9 cm in greatest dimension. Hepatomegaly. Large stones in the gallbladder. Sli ght nodularity of the left adrenal gland. Prominent zach hepatis lymph nodes, however these are not enlarged by CT size criteria. Small cystic lesion in the pancreatic body with prominent main pancreat ic duct. Small cystic lesion in the pancreatic head. Please see previously reported MRI. Probable [place] rine fibroid. Scattered colonic diverticula. Moderate calcified atheromatous plaque in the distal abdominal aorta. Celiac, SMA, and REHANA are patent . There are moderate stenoses at the origins of the SMA and REHANA. High-grade stenosis at the origin of the left renal artery. Moderate stenosis at the origin of the right renal artery. Moderate stenosis right common femoral artery due to calcified atheromatous plaque. There is 3 vessel runoff to the lev el of the right ankle. Moderate stenosis due to calcified atherosclerotic plaque in the left common f emoral artery. Moderate multifocal stenoses left popliteal artery. There is 3 vessel runoff to the le mimi of the left ankle. IMPRESSION: 1. Innumerable presumed hepatic metastases. 2. Stable pancreatic cystic lesions. Please see dedicated MRI of the abdomen report. 3. Moderate stenoses at the origins of the SMA and REHANA. Moderate stenosis at the origin of the right renal artery. 4. Moderate stenosis right common femoral artery and left common femoral artery. 5. Three-vessel runoff to the level of the left and right ankle. 6. No acute PE. 7. Incidental findings as above.
--- NOTE | 2018-04-21 16:02 | PCM.HP ---
H&P History of Present Illness - General Date of Service: 04/21/18 Admit Problem/Dx: Admission Diagnosis/Problem Admission Diagnosis/Problem CHF, Congestive heart failure Source of Information: Patient, Family, Provider History Limitations: Reports: No Limitations - History of Present Illness Initial Comments - Free Text/Narative: Charmaine presents to the emergency room today with 3 days of progressive shortness of breath and lower extremity edema. She reports progressive swelling in both lower legs up to the knee over the past few days. She has been short of breath over that time as well. She reports significant shortness of breath with activity and even mild shortness of breath at rest. She does not have orthopnea and does not have a cough. She does feel like her abdomen is bloated as well. No recent fevers but she has chronic difficulties with chills. No change in bowel or bladder habits and has baseline mild chronic diarrhea. She does not have any chest pain or pressure. She was evaluated in the clinic today and there was concern for possible pulmonary embolism causing the shortness of breath or potentially portal vein thrombosis leading to the swelling so she was sent to the emergency room for expedited workup. Workup in the emergency room revealed a hemoglobin less than 7 as well as bilateral lower extremity edema and abdominal distention. D-dimer was elevated. CT scan of the chest did not reveal pulmonary embolism. CT scan of the abdomen did not reveal portal vein thrombosis. She is receiving 1 unit of blood via transfusion. She will be admitted for workup of presumed diastolic congestive heart failure as well as further management of her anemia. - Related Data Allergies/Adverse Reactions: Allergies Allergy/AdvReac Type Severity Reaction Status Date / Time hydrochlorothiazide AdvReac .hypokalemi Verified 04/18/18 14:15 a Home Medications: Home Meds Carvedilol [Coreg] 25 mg PO BID 08/22/15 [History] Fish Oil/[place]-3 Fatty Acids [Fish Oil 1,000 MG] 1,000 mg PO BID 08/22/15 [ History] Pravastatin [Pravachol] 80 mg PO BEDTIME 08/22/15 [History] Urea [Urea 40% Crm] 1 applic TOP DAILY 08/22/15 [History] metFORMIN [Glucophage] 500 mg PO DAILY 08/22/15 [History] Cyanocobalamin (Vitamin B-12) [Vitamin B-12] 1,000 mcg SL DAILY 01/28/18 [ History] Loperamide [Imodium] 2 mg PO QID PRN 01/31/18 [History] Acetaminophen [Tylenol] 650 mg PO Q4H PRN tablet 02/01/18 [Rx] Cholecalciferol (Vitamin D3) [Vitamin D3] 2,000 units PO DAILY tablet 02/01/18 [Rx] Lactobacillus Rhamnosus GG [Culturelle] 1 cap PO BID cap 02/01/18 [Rx] Magnesium Oxide 500 mg PO TID 02/23/18 [History] Vitamin E 1,000 unit PO DAILY 03/19/18 [History] Zinc 50 mg PO DAILY 03/19/18 [History] Capecitabine 1,500 mg PO BID 04/21/18 [History] Past Medical History HEENT History: Reports: Cataract, Impaired Vision Other HEENT History: wears glasses Cardiovascular History: Reports: High Cholesterol, Hypertension Gastrointestinal History: Reports: Jaundice Other Gastrointestinal History: as a child Genitourinary History: Reports: UTI, Recurrent [employer] PAYMENT History: Reports: Musculoskeletal History: Reports: Amputation, Arthritis Neurological History: Reports: Neuropathy, Diabetic Endocrine/Metabolic History: Reports: Diabetes, Type II Hematologic History: Reports: Anemia, Blood Transfusion(s) Immunologic History: Reports: Other (See Below) Other Immunologic History: chemo Oncologic (Cancer) History: Reports: Breast - Infectious Disease History Infectious Disease History: Reports: C-Difficile Other Infectious Disease History: 2 years ago - Past Surgical History GI Surgical History: Reports: Colonoscopy Female Surgical History: Reports: Breast Biopsy Musculoskeletal Surgical History: Reports: Amputation Other Musculoskeletal Surgeries/Procedures:: left foot all 5 toes amputated Oncologic Surgical History: Reports: Biopsy of Breast, Lumpectomy Other Oncologic Surgeries/Procedures: Right side Dermatological Surgical History: Reports: Skin Biopsy, Skin Graft Social & Family History - Family History Family Medical History: Noncontributory HEENT: Reports: Impaired Vision Cardiac: Reports: CAD, ND, Pacemaker Other Cardiac Family History: father. sister Respiratory: Reports: Asthma Other Respiratory Family Hisory: daughter GI: Reports: Hiatal Hernia Other GI Family History: daughter Musculoskeletal: Reports: Other (See Below) Other Musculoskeletal Family History: scoliosis Neurological: Reports: Dementia Other Neurological Family History: grandmother Endocrine/Metabolic: Reports: Diabetes, type II Other Endocrine/Metabolic Family History: grandmother Oncologic: Reports: Lymphoma Other Oncologic Family History: granddaughter - Tobacco Use Smoking Status *Q: Never Smoker - Caffeine Use Caffeine Use: Reports: Soda - Alcohol Use Alcohol Use History: No - Recreational Drug Use Recreational Drug Use: No H&P Review of Systems - Review of Systems: Review Of Systems: See Below Free Text/Narrative: A complete 12 point review of systems was obtained. Pertinent positives and negatives are noted in the history of present illness. All other systems were reviewed and were negative except as noted. Exam - Exam Exam: See Below - Vital Signs Vital Signs: Last Vital Signs Temp 36.8 C 04/21/18 15:54 Pulse 76 04/21/18 15:54 Resp 16 04/21/18 15:54 BP 109/49 L 04/21/18 15:54 Pulse Ox 97 04/21/18 15:54 Weight: 81.647 kg - Exam Quality Assessment: No: Supplemental Oxygen General: Alert, Oriented, Cooperative. No: Mild Distress HEENT: Conjunctiva Clear, Mucosa Moist & [place]. No: Scleral Icterus Neck: Supple, Trachea Midline. No: Lymphadenopathy, JVD Lungs: Clear to Auscultation, Normal Respiratory Effort Cardiovascular: Regular Rate, Regular Rhythm, Systolic Murmur GI/Abdominal Exam: Normal Bowel Sounds, Soft, Non-Tender, No Distention, No Mass Back Exam: Normal Inspection, Full Range of Motion Extremities: Pedal Edema (pitting edema to the knee bilaterally), Other (No toes on left foot). No: Increased Warmth Peripheral Pulses: 1+: Dorsalis Pedis (L), Dorsalis Pedis (R) Skin: Warm, Dry. No: Rash Neuro Extensive - Mental Status: Alert, Oriented x3, Nl Response to Commands Neuro Extensive - Motor, Sensory, Reflexes: CN II-XII Intact. No: Dysarthria, Abnormal Motor Psychiatric: Alert, Normal Affect - Patient Data Lab Results Last 24 hrs: Laboratory Results - last 24 hr 04/21/18 04/21/18 04/21/18 Range/Units 11:50 11:50 11:50 WBC 6.5 (4.5-11.0) K/uL RBC 2.19 L (3.30-5.50) M/uL Hgb 6.3 L* (12.0-15.0) g/dL Hct 22.0 L (36.0-48.0) % MCV 101 H (80-98) fL MCH 29 (27-31) pg MCHC 29 L (32-36) % Plt Count 304 (150-400) K/uL Neut % (Auto) 78 H (36-66) % Lymph % (Auto) 12 L (24-44) % [place] % (Auto) 9 H (2-6) % Eos % (Auto) 2 (2-4) % Baso % (Auto) 0 (0-1) % D-Dimer, Quantitative 2820 H (0.0-400.0) ng/mL Sodium 141 (140-148) mmol/L Potassium 4.6 (3.6-5.2) mmol/L Chloride 102 (100-108) mmol/L Carbon Dioxide 28 (21-32) mmol/L Anion Gap 11.2 (5.0-14.0) mmol/L BUN 23 H (7-18) mg/dL Creatinine 1.1 H (0.6-1.0) mg/dL Est Cr Clr Drug Dosing 47.10 mL/min Estimated GFR (MDRD) 50 L (>60) Glucose 200 H (74-106) mg/dL Lactic Acid (0.4-2.0) mmol/L Calcium 7.5 L (8.5-10.1) mg/dL Total Bilirubin 0.4 (0.2-1.0) mg/dL AST 26 (15-37) U/L ALT 21 (12-78) U/L Alkaline Phosphatase 415 H (46-116) U/L Troponin I < 0.017 (0.000-0.056) ng/mL NT-Pro-B Natriuret Pep 1702 H (5-125) pg/mL Total Protein 6.0 L (6.4-8.2) g/dL Albumin 1.2 L (3.4-5.0) g/dL Globulin 4.8 H (2.3-3.5) g/dL Albumin/Globulin Ratio 0.3 L (1.2-2.2) Blood Type Gel Antibody Screen Crossmatch 04/21/18 04/21/18 Range/Units 11:50 11:50 WBC (4.5-11.0) K/uL RBC (3.30-5.50) M/uL Hgb (12.0-15.0) g/dL Hct (36.0-48.0) % MCV (80-98) fL MCH (27-31) pg MCHC (32-36) % Plt Count (150-400) K/uL Neut % (Auto) (36-66) % Lymph % (Auto) (24-44) % [place] % (Auto) (2-6) % Eos % (Auto) (2-4) % Baso % (Auto) (0-1) % D-Dimer, Quantitative (0.0-400.0) ng/mL Sodium (140-148) mmol/L Potassium (3.6-5.2) mmol/L Chloride (100-108) mmol/L Carbon Dioxide (21-32) mmol/L Anion Gap (5.0-14.0) mmol/L BUN (7-18) mg/dL Creatinine (0.6-1.0) mg/dL Est Cr Clr Drug Dosing mL/min Estimated GFR (MDRD) (>60) Glucose (74-106) mg/dL Lactic Acid 2.3 H (0.4-2.0) mmol/L Calcium (8.5-10.1) mg/dL Total Bilirubin (0.2-1.0) mg/dL AST (15-37) U/L ALT (12-78) U/L Alkaline Phosphatase (46-116) U/L Troponin I (0.000-0.056) ng/mL NT-Pro-B Natriuret Pep (5-125) pg/mL Total Protein (6.4-8.2) g/dL Albumin (3.4-5.0) g/dL Globulin (2.3-3.5) g/dL Albumin/Globulin Ratio (1.2-2.2) Blood Type O NEGATIVE Gel Antibody Screen Negative Crossmatch See Detail Result Diagrams: 04/21/18 11:50 04/21/18 11:50 Imaging Impressions Last 24 hrs: CXR - images personally reviewed - lungs are clear with no mass, infiltrate or effusion. Heart size is normal. CT PE protocol - no PE or infiltrate CT aorta with run off - No portal vein thrombosis or occlusion EKG INTERPRETATION EKG Date: 04/21/18 Rhythm: NSR Rate (Beats/Min): 69 [place]: Normal P-Wave: Present QRS: Normal ST-T: Normal QT: Normal *Q Meaningful Use (ADM) - VTE Risk Assess *Q Each Risk Factor Represents 1 Point: Swollen Legs, Current, Obesity ( BMI > 25 kg/m2), Congestive heart failure (CHF) Total Score 1 Point Risk Factors: 3 Each Risk Factor Represents 2 Points: Age 60 - 74 Years, Malignancy (present or previous) Total Score 2 Point Risk Factors: 4 Each Risk Factor Represents 3 Points: None Total Score 3 Point Risk Factors: 0 Each Risk Factor Represents 5 Points: None Total Score 5 Point Risk Factors: 0 Venous Thromboembolism Risk Factor Score *Q: 7 - Problem List (1) Diastolic congestive heart failure SNOMED Code(s): 941698686, 739881121 ICD Code: I50.30 - UNSPECIFIED DIASTOLIC (CONGESTIVE) HEART FAILURE Status : Suspected Current Visit: Yes Qualifiers: Heart failure chronicity: acute Qualified Code(s): I50.31 - Acute diastolic (congestive) heart failure (2) Anemia of chronic disease SNOMED Code(s): 921105115 ICD Code: D63.8 - ANEMIA IN OTHER CHRONIC DISEASES CLASSIFIED ELSEWHERE Status: Acute Current Visit: Yes (3) Breast cancer SNOMED Code(s): 158639888 ICD Code: C50.919 - MALIGNANT NEOPLASM OF UNSP SITE OF UNSPECIFIED FEMALE BREAST Status: Chronic Priority: Low Current Visit: Yes Qualifiers: Breast location: unspecified site of breast Estrogen receptor status: unspecified Patient sex: female Laterality: right Qualified Code(s): C50.911 - Malignant neoplasm of unspecified site of right female breast (4) Liver metastasis Status: Chronic Current Visit: No Problem Details: secondary to breast cancer Problem List Initiated/Reviewed/Updated: Yes Orders Last 24hrs: Active Orders 24 hr Category Date Time Status Patient Status Manage Transfer [TRANSFER] Routine ADT 04/21/18 15:45 Ordered Cardiac Monitoring [RC] .As Directed Care 04/21/18 11:40 Active EKG Documentation Completion [RC] ASDIRECTED Care 04/21/18 11:41 Active Peripheral IV Care [RC] . DIRECTED Care 04/21/18 11:41 Active Iopamidol [Isovue-370 (76%)] Med 04/21/18 13:30 Active 100 ml IV . DIRECTED Sodium Chloride 0.9% [Normal Saline] 90 ml Med 04/21/18 13:30 Active IV ASDIRECTED Sodium Chloride 0.9% [Saline Flush] Med 04/21/18 11:40 Active 10 ml FLUSH ASDIRECTED PRN Peripheral IV Insertion Adult [OM.PC] Stat Ot 04/21/18 11:40 Ordered Saline Lock Insert [OM.PC] Stat Ot 04/21/18 11:40 Ordered Transfuse Red Blood Cells [COMM] Stat Ot 04/21/18 13:21 Ordered Resuscitation Status Routine Resus Stat 04/21/18 15:47 Ordered EKG 12 Lead [EK] Stat Ther 04/21/18 11:41 Ordered Medication Orders Sodium Chloride (Normal Saline) 90 mls @ 4 mls/sec IV ASDIRECTED [facility] Last Admin: 04/21/18 14:25 Dose: 4 mls/sec Iopamidol (Isovue-370 (76%)) 100 ml IV . DIRECTED [facility] Last Admin: 04/21/18 14:25 Dose: 100 ml Sodium Chloride (Saline Flush) 10 ml FLUSH ASDIRECTED PRN PRN Reason: Keep Vein Open Last Admin: 04/21/18 12:31 Dose: 10 ml Assessment/Plan Comment:: ASSESSMENT AND PLAN - Suspected diastolic congestive heart failure - patient with progressive shortness of breath and lower extremity edema. History of diabetes. Bedside ultrasound suggested normal left ventricular function. May be contribution from mitral regurgitation. No evidence for PE to explain dyspnea and no PVT to explain swelling. -Furosemide 1 this afternoon and reassess -Decrease dose of carvedilol to 6.25 mg with low blood pressure and fatigue -REECE inhibitor contraindicated due to hypotension -Echocardiogram in the morning Anemia due to chronic disease/malignancy - last blood transfusion approximately one month ago. Hemoglobin less than 7 with symptoms of dyspnea. She is receiving 1 unit of blood in the emergency room. -Repeat hemoglobin in the morning, transfuse if less than 7 Metastatic breast cancer - known liver mets, on day 2 of 14 of treatment with capecitabine. Did have oncology f/u today, was sent for eval. -cont capecitabine -outpatient f/u Type 2 diabetes mellitus - on only metformin at this time. Blood sugar moderately elevated at 200. -Continue metformin -Sliding-scale insulin Maintenance issues - - DVT prophylaxis - URBANO stockings - GI prophylaxis - not indicated - Nutrition - low sodium diet - Arceo catheter - not indicated CODE STATUS - full cold Admission justification - This patient will be admitted for inpatient services and is medically appropriate meeting medical necessity for inpatient admission as outlined in my documentation. I reasonably expect the patient will require inpatient services that span a period time over 2 midnights. I reasonably expect this patient to be discharged or transferred within 96 hours after admission to the [facility]. Disposition - anticipate discharge to home after the hospital stay Primary care physician - Dr. Ellis Mcguire M.D.
[2018-04-21] MEDS ORDERED: Loperamide 2 MG Cap PO PRN (16:42)
[2018-04-21] MEDS ORDERED: Ondansetron 4 MG Tab.DIS PO PRN (16:42)
[2018-04-21] MEDS ORDERED: Furosemide 40 MG/4 ML VIAL IVPUSH ONE (17:30)
[2018-04-21] MEDS: Insulin Aspart 100 Units/ML 3 ML Pen SUBCUT SCH ×2 (18:22→21:49)
[2018-04-21] MEDS: Carvedilol 6.25 MG Tab PO SCH (18:22)
[2018-04-21] MEDS: CAPECITABINE 1500 MG PO SCH (20:10)
[2018-04-21] MEDS: Pravastatin 20 MG Tab PO SCH (20:10)
[2018-04-21] MEDS: Lactobacillus Rhamnosus GG (Probiotic) Cap PO SCH (20:12)
[2018-04-21] MEDS: Acetaminophen 325 MG Tab PO PRN (23:02)
[2018-04-22] MEDS: Insulin Aspart 100 Units/ML 3 ML Pen SUBCUT SCH ×4 (07:27→21:12)
[2018-04-22] MEDS: Carvedilol 6.25 MG Tab PO SCH ×2 (08:04→16:28)
[2018-04-22] MEDS: Lactobacillus Rhamnosus GG (Probiotic) Cap PO SCH ×2 (08:04→21:04)
[2018-04-22] MEDS: CAPECITABINE 1500 MG PO SCH ×2 (08:04→20:01)
[2018-04-22] MEDS: metFORMIN 500 MG Tab PO SCH (08:05)
[2018-04-22] MEDS: Magnesium Sulfate/Water 2 GM in Premix Bag 1 BAG IV SCH ×3 (10:05→21:05)
[2018-04-22] MEDS: Acetaminophen 325 MG Tab PO PRN ×2 (10:56→23:33)
--- NOTE | 2018-04-22 11:52 | PCM.PN ---
- General Info Date of Service: 04/22/18 Functional Status: Reports: Pain Controlled, Tolerating Diet - Review of Systems General: Reports: Fever, Weakness Pulmonary: Denies: Shortness of Breath Gastrointestinal: Denies: Abdominal Pain Systems Review Comment:: There were no acute events overnight but the patient did have a fever both last night and again this morning. She reports some improvement in her lower extremity edema and shortness of breath O she does not feel dramatically better. No complaints of chest pain or abdominal pain. Urine sample very mildly suggestive of infection. Echocardiogram this morning showed normal ejection fraction and was essentially normal with no valvular abnormalities. Hemoglobin is up over 7 following transfusion. No evidence for bleeding. - Patient Data Vitals - Most Recent: Last Vital Signs Temp 101.2 C H 04/22/18 10:56 Pulse 79 04/22/18 10:55 Resp 16 04/22/18 10:55 BP 114/65 04/22/18 10:55 Pulse Ox 97 04/22/18 10:55 Weight - Most Recent: 78.109 kg I&O - Last 24 Hours: Intake & Output 04/21/18 04/22/18 04/22/18 22:59 06:59 14:59 Intake Total 0 500 50 Output Total 600 200 Balance 0 -100 -150 Lab Results Last 24 Hours: Laboratory Results - last 24 hr 04/21/18 04/21/18 04/21/18 Range/Units 11:50 11:50 11:50 WBC 6.5 (4.5-11.0) K/uL RBC 2.19 L (3.30-5.50) M/uL Hgb 6.3 L* (12.0-15.0) g/dL Hct 22.0 L (36.0-48.0) % MCV 101 H (80-98) fL MCH 29 (27-31) pg MCHC 29 L (32-36) % Plt Count 304 (150-400) K/uL Neut % (Auto) 78 H (36-66) % Lymph % (Auto) 12 L (24-44) % [place] % (Auto) 9 H (2-6) % Eos % (Auto) 2 (2-4) % Baso % (Auto) 0 (0-1) % D-Dimer, Quantitative 2820 H (0.0-400.0) ng/mL Sodium 141 (140-148) mmol/L Potassium 4.6 (3.6-5.2) mmol/L Chloride 102 (100-108) mmol/L Carbon Dioxide 28 (21-32) mmol/L Anion Gap 11.2 (5.0-14.0) mmol/L BUN 23 H (7-18) mg/dL Creatinine 1.1 H (0.6-1.0) mg/dL Est Cr Clr Drug Dosing 47.10 mL/min Estimated GFR (MDRD) 50 L (>60) Glucose 200 H (74-106) mg/dL Lactic Acid (0.4-2.0) mmol/L Calcium 7.5 L (8.5-10.1) mg/dL Magnesium (1.8-2.4) mg/dL Total Bilirubin 0.4 (0.2-1.0) mg/dL AST 26 (15-37) U/L ALT 21 (12-78) U/L Alkaline Phosphatase 415 H (46-116) U/L Troponin I < 0.017 (0.000-0.056) ng/mL NT-Pro-B Natriuret Pep 1702 H (5-125) pg/mL Total Protein 6.0 L (6.4-8.2) g/dL Albumin 1.2 L (3.4-5.0) g/dL Globulin 4.8 H (2.3-3.5) g/dL Albumin/Globulin Ratio 0.3 L (1.2-2.2) Urine Color Urine Appearance Urine pH (4.5-8.0) Ur Specific [place] (1.008-1.030) Urine Protein (NEGATIVE) mg/dL Urine Glucose (UA) (NEGATIVE) mg/dL Urine Ketones (NEGATIVE) mg/dL Urine Occult Blood (NEGATIVE) Urine Nitrite (NEGATIVE) Urine Bilirubin (NEGATIVE) Urine Urobilinogen (NORMAL) mg/dL Ur Leukocyte Esterase (NEGATIVE) Urine RBC (0-5) Urine WBC (0-5) Ur Epithelial Cells Amorphous Sediment Urine Bacteria Urine Mucus Blood Type Gel Antibody Screen Crossmatch 04/21/18 04/21/18 04/21/18 Range/Units 11:50 11:50 19:31 WBC (4.5-11.0) K/uL RBC (3.30-5.50) M/uL Hgb (12.0-15.0) g/dL Hct (36.0-48.0) % MCV (80-98) fL MCH (27-31) pg MCHC (32-36) % Plt Count (150-400) K/uL Neut % (Auto) (36-66) % Lymph % (Auto) (24-44) % [place] % (Auto) (2-6) % Eos % (Auto) (2-4) % Baso % (Auto) (0-1) % D-Dimer, Quantitative (0.0-400.0) ng/mL Sodium (140-148) mmol/L Potassium (3.6-5.2) mmol/L Chloride (100-108) mmol/L Carbon Dioxide (21-32) mmol/L Anion Gap (5.0-14.0) mmol/L BUN (7-18) mg/dL Creatinine (0.6-1.0) mg/dL Est Cr Clr Drug Dosing mL/min Estimated GFR (MDRD) (>60) Glucose (74-106) mg/dL Lactic Acid 2.3 H (0.4-2.0) mmol/L Calcium (8.5-10.1) mg/dL Magnesium (1.8-2.4) mg/dL Total Bilirubin (0.2-1.0) mg/dL AST (15-37) U/L ALT (12-78) U/L Alkaline Phosphatase (46-116) U/L Troponin I (0.000-0.056) ng/mL NT-Pro-B Natriuret Pep (5-125) pg/mL Total Protein (6.4-8.2) g/dL Albumin (3.4-5.0) g/dL Globulin (2.3-3.5) g/dL Albumin/Globulin Ratio (1.2-2.2) Urine Color Yellow Urine Appearance Clear Urine pH 7.0 (4.5-8.0) Ur Specific [place] 1.000 L (1.008-1.030) Urine Protein Negative (NEGATIVE) mg/dL Urine Glucose (UA) Normal (NEGATIVE) mg/dL Urine Ketones Negative (NEGATIVE) mg/dL Urine Occult Blood Negative (NEGATIVE) Urine Nitrite Negative (NEGATIVE) Urine Bilirubin Negative (NEGATIVE) Urine Urobilinogen Normal (NORMAL) mg/dL Ur Leukocyte Esterase Large (NEGATIVE) Urine RBC 0-5 (0-5) Urine WBC 5-10 H (0-5) Ur Epithelial Cells Moderate Amorphous Sediment Not seen Urine Bacteria Rare Urine Mucus Not seen Blood Type O NEGATIVE Gel Antibody Screen Negative Crossmatch See Detail 04/22/18 04/22/18 Range/Units 04:45 04:45 WBC 7.3 (4.5-11.0) K/uL RBC 2.53 L (3.30-5.50) M/uL Hgb 7.3 L (12.0-15.0) g/dL Hct 24.8 L (36.0-48.0) % MCV 98 (80-98) fL MCH 29 (27-31) pg MCHC 29 L (32-36) % Plt Count 287 (150-400) K/uL Neut % (Auto) (36-66) % Lymph % (Auto) (24-44) % [place] % (Auto) (2-6) % Eos % (Auto) (2-4) % Baso % (Auto) (0-1) % D-Dimer, Quantitative (0.0-400.0) ng/mL Sodium 139 L (140-148) mmol/L Potassium 4.4 (3.6-5.2) mmol/L Chloride 101 (100-108) mmol/L Carbon Dioxide 30 (21-32) mmol/L Anion Gap 12.4 (5.0-14.0) mmol/L BUN 22 H (7-18) mg/dL Creatinine 1.3 H (0.6-1.0) mg/dL Est Cr Clr Drug Dosing 39.86 mL/min Estimated GFR (MDRD) 41 L (>60) Glucose 95 (74-106) mg/dL Lactic Acid (0.4-2.0) mmol/L Calcium 7.5 L (8.5-10.1) mg/dL Magnesium 1.4 L D (1.8-2.4) mg/dL Total Bilirubin (0.2-1.0) mg/dL AST (15-37) U/L ALT (12-78) U/L Alkaline Phosphatase (46-116) U/L Troponin I (0.000-0.056) ng/mL NT-Pro-B Natriuret Pep (5-125) pg/mL Total Protein (6.4-8.2) g/dL Albumin (3.4-5.0) g/dL Globulin (2.3-3.5) g/dL Albumin/Globulin Ratio (1.2-2.2) Urine Color Urine Appearance Urine pH (4.5-8.0) Ur Specific [place] (1.008-1.030) Urine Protein (NEGATIVE) mg/dL Urine Glucose (UA) (NEGATIVE) mg/dL Urine Ketones (NEGATIVE) mg/dL Urine Occult Blood (NEGATIVE) Urine Nitrite (NEGATIVE) Urine Bilirubin (NEGATIVE) Urine Urobilinogen (NORMAL) mg/dL Ur Leukocyte Esterase (NEGATIVE) Urine RBC (0-5) Urine WBC (0-5) Ur Epithelial Cells Amorphous Sediment Urine Bacteria Urine Mucus Blood Type Gel Antibody Screen Crossmatch Med Orders - Current: Current Medications Acetaminophen (Tylenol) 650 mg PO Q4H PRN PRN Reason: Pain (Mild 1-3)/fever Last Admin: 04/22/18 10:56 Dose: 650 mg Carvedilol (Coreg) 6.25 mg PO BIDMEALS [facility] Last Admin: 04/22/18 08:04 Dose: 6.25 mg Magnesium Sulfate 2 gm/ Premix 50 mls @ 25 mls/hr IV Q6H [facility] Stop: 04/23/18 05:59 Last Admin: 04/22/18 10:05 Dose: 25 mls/hr Insulin Aspart (Novolog) 0 unit SUBCUT QIDACANDBED [facility]; Protocol Last Admin: 04/22/18 07:27 Dose: Not Given Lactobacillus Rhamnosus (Culturelle) 1 cap PO BID [facility] Last Admin: 04/22/18 08:04 Dose: 1 cap Loperamide HCl (Imodium) 2 mg PO QID PRN PRN Reason: Diarrhea Metformin HCl (Glucophage) 500 mg PO DAILY@0800 [facility] Last Admin: 04/22/18 08:05 Dose: 500 mg Capecitabine ( Capecitabine) 1,500 MgPom 1,500 mg PO BID [facility] Last Admin: 04/22/18 08:04 Dose: 1,500 mg Ondansetron HCl (Zofran Odt) 4 mg PO Q6H PRN PRN Reason: Nausea able to take PO Pravastatin Sodium (Pravachol) 80 mg PO BEDTIME [facility] Last Admin: 04/21/18 20:10 Dose: 80 mg Sodium Chloride (Saline Flush) 10 ml FLUSH ASDIRECTED PRN PRN Reason: Keep Vein Open Last Admin: 04/21/18 12:31 Dose: 10 ml Discontinued Medications Furosemide (Lasix) 40 mg IVPUSH ONETIME ONE Stop: 04/21/18 17:31 Last Admin: 04/21/18 18:22 Dose: 40 mg Sodium Chloride (Normal Saline) 90 mls @ 4 mls/sec IV ASDIRECTED [facility] Last Admin: 04/21/18 14:25 Dose: 4 mls/sec Iopamidol (Isovue-370 (76%)) 100 ml IV . DIRECTED [facility] Last Admin: 04/21/18 14:25 Dose: 100 ml - Exam Quality Assessment: No: Supplemental Oxygen General: Alert, Oriented, Cooperative, No Acute Distress Neck: Supple Lungs: Clear to Auscultation, Normal Respiratory Effort Cardiovascular: Regular Rate, Regular Rhythm GI/Abdominal Exam: Soft, Non-Tender, No Distention Extremities: Pedal Edema Psy/Mental Status: Alert, Normal Affect - Problem List & Annotations (1) Diastolic congestive heart failure SNOMED Code(s): 338618300, 387214186 Code(s): I50.30 - UNSPECIFIED DIASTOLIC (CONGESTIVE) HEART FAILURE Status: Suspected Current Visit: Yes Qualifiers: Heart failure chronicity: acute Qualified Code(s): I50.31 - Acute diastolic (congestive) heart failure (2) Anemia of chronic disease SNOMED Code(s): 414944169 Code(s): D63.8 - ANEMIA IN OTHER CHRONIC DISEASES CLASSIFIED ELSEWHERE Status: Acute Current Visit: Yes (3) Breast cancer SNOMED Code(s): 558170140 Code(s): C50.919 - MALIGNANT NEOPLASM OF UNSP SITE OF UNSPECIFIED FEMALE BREAST Status: Chronic Priority: Low Current Visit: Yes Qualifiers: Breast location: unspecified site of breast Estrogen receptor status: unspecified Patient sex: female Laterality: right Qualified Code(s): C50.911 - Malignant neoplasm of unspecified site of right female breast (4) Liver metastasis Status: Chronic Current Visit: No Annotation/Comment:: secondary to breast cancer - Problem List Review Problem List Initiated/Reviewed/Updated: Yes - My Orders Last 24 Hours: My Active Orders 04/21/18 15:47 Resuscitation Status Routine 04/21/18 16:42 Patient Status [ADT] Routine Communication Order [RC] QSHIFT Communication Order [RC] QSHIFT Diabetes Education [RC] Click to Edit Intake and Output [RC] QSHIFT Notify Provider Vital Signs [RC] ASDIRECTED Notify Provider [RC] PRN Oxygen Therapy [RC] PRN Up With Assistance [RC] ASDIRECTED VTE/DVT Education [RC] Per Unit Routine Vital Signs [RC] Q4H Acetaminophen [Tylenol] 650 mg PO Q4H PRN Loperamide [Imodium] 2 mg PO QID PRN Ondansetron [Zofran ODT] 4 mg PO Q6H PRN DUSTIN Hose [Antiembolic Hose] [OM.PC] Routine 04/21/18 17:00 Carvedilol [Coreg] 6.25 mg PO BIDMEALS Insulin Aspart [NovoLOG] See Protocol SUBCUT QIDACANDBED 04/21/18 19:31 UA W/MICROSCOPIC [URIN] Routine 04/21/18 21:00 Capecitabine [Capecitabine] 1,500 mg PO BID Lactobacillus Rhamnosus GG [Culturelle] 1 cap PO BID Pravastatin [Pravachol] 80 mg PO BEDTIME 04/21/18 Dinner 2 Gram Sodium Diet [DIET] 04/22/18 07:00 Echo Ltd [US] Routine 04/22/18 08:00 VL Duplex Lwr Ext Veins Comp [US] Routine metFORMIN [Glucophage] 500 mg PO DAILY@0800 04/22/18 10:00 Magnesium Sulfate/Water [Magnesium Sulfate 2 GM in Water 50 ML] 2 gm Premix Bag 1 bag IV Q6H 04/22/18 11:50 Brain wo Cont [MR] Routine CULTURE URINE [RM] Routine 04/22/18 12:00 cefTRIAXone [Rocephin] 1 gm Sodium Chloride 0.9% [Normal Saline] 50 ml IV Q24H 04/22/18 16:30 GLUCOSE POC LAB TO COLLECT [POC] QIDACANDBED 04/22/18 21:00 GLUCOSE POC LAB TO COLLECT [POC] QIDACANDBED 04/23/18 05:00 BASIC METABOLIC PANEL,BMP [CHEM] Timed CBC W/O DIFF,HEMOGRAM [HEME] Timed (1) 04/23/18 07:30 GLUCOSE POC LAB TO COLLECT [POC] QIDACANDBED 04/23/18 11:30 GLUCOSE POC LAB TO COLLECT [POC] QIDACANDBED 04/23/18 16:30 GLUCOSE POC LAB TO COLLECT [POC] QIDACANDBED 04/23/18 21:00 GLUCOSE POC LAB TO COLLECT [POC] QIDACANDBED 04/24/18 07:30 GLUCOSE POC LAB TO COLLECT [POC] QIDACANDBED 04/24/18 11:30 GLUCOSE POC LAB TO COLLECT [POC] QIDACANDBED 04/24/18 16:30 GLUCOSE POC LAB TO COLLECT [POC] QIDACANDBED 04/24/18 21:00 GLUCOSE POC LAB TO COLLECT [POC] QIDACANDBED 04/25/18 07:30 GLUCOSE POC LAB TO COLLECT [POC] QIDACANDBED 04/25/18 11:30 GLUCOSE POC LAB TO COLLECT [POC] QIDACANDBED 04/25/18 16:30 GLUCOSE POC LAB TO COLLECT [POC] QIDACANDBED 04/25/18 21:00 GLUCOSE POC LAB TO COLLECT [POC] QIDACANDBED 04/26/18 07:30 GLUCOSE POC LAB TO COLLECT [POC] QIDACANDBED 04/26/18 11:30 GLUCOSE POC LAB TO COLLECT [POC] QIDACANDBED 04/26/18 16:30 GLUCOSE POC LAB TO COLLECT [POC] QIDACANDBED 04/26/18 21:00 GLUCOSE POC LAB TO COLLECT [POC] QIDACANDBED - Plan Plan:: ASSESSMENT AND PLAN - Suspected diastolic congestive heart failure - patient with progressive shortness of breath and lower extremity edema but echocardiogram appears normal at this time. Congestive heart failure doubtful based on this information. May be contribution from venous insufficiency and/or low albumin. -No diuresis indicated today -Decrease dose of carvedilol to 6.25 mg with low blood pressure and fatigue -Dustin stockings -REECE inhibitor contraindicated due to hypotension Fever - urinalysis mildly suggestive of infection but no definite source for infection at this time. Planning empiric coverage of urinary source with culture pending and close monitoring. -Ceftriaxone -Follow-up urine culture Anemia due to chronic disease/malignancy - last blood transfusion approximately one month ago. Hemoglobin improved following transfusion yesterday. -Repeat hemoglobin in the morning, transfuse if less than 7 Metastatic breast cancer - known liver mets, on day 3 of 14 of treatment with capecitabine. Did have oncology f/u the day of admission. -cont capecitabine -outpatient f/u Type 2 diabetes mellitus - on only metformin at this time. Blood sugars acceptable overnight. -Continue metformin -Sliding-scale insulin Maintenance issues - - DVT prophylaxis - DUSTIN stockings - GI prophylaxis - not indicated - Nutrition - low sodium diet Disposition - anticipate discharge to home after the hospital stay Ravinder Mcguire M.D.
[2018-04-22] MEDS ORDERED: Gadoteridol 279.3 MG/ML 15 ML SDV IV PRN (12:40)
[2018-04-22] MEDS: cefTRIAXone 1 GM in Sodium Chloride 0.9% 50 ML IV SCH (13:31)
--- NOTE | 2018-04-22 16:49 | MR ---
Brain w wo Cont INDICATION: fever, metastatic breast cancer Technique: Multiplanar MR images of the brain obtained without and with IV contrast. COMPARISON: CT head 12/10/2015 FINDINGS: No acute intracranial abnormality. No evidence of edema, hemorrhage, or mass effect. No mas s or abnormal enhancement. Cavum vergae, normal variant. Mild chronic small vessel ischemic disease a nd atrophy. IMPRESSION: No evidence of metastatic disease or infection. Atrophy and chronic small vessel ischem ic disease.
--- NOTE | 2018-04-22 17:01 | US ---
VL Duplex Lwr Ext Veins Comp INDICATION: bilateral swelling, r/o DVT TECHNIQUE: The deep venous system of bilateral legs imaged, including the common femoral, deep femora l, superficial femoral, popliteal, and where visualized, calf veins. Imaging included duplex, compr ession, and augmentation. COMPARISON: Prior studies. FINDINGS: There is no evidence of deep venous thrombosis. Other incidental findings: None. IMPRESSION: No evidence of deep venous thrombosis.
[2018-04-22] MEDS: Pravastatin 20 MG Tab PO SCH (21:05)
[2018-04-23] MEDS: Magnesium Sulfate/Water 2 GM in Premix Bag 1 BAG IV SCH (03:07)
[2018-04-23] MEDS: Insulin Aspart 100 Units/ML 3 ML Pen SUBCUT SCH ×4 (06:18→21:33)
[2018-04-23] MEDS: Carvedilol 6.25 MG Tab PO SCH ×2 (07:37→17:26)
[2018-04-23] MEDS: metFORMIN 500 MG Tab PO SCH (07:38)
[2018-04-23] MEDS: Lactobacillus Rhamnosus GG (Probiotic) Cap PO SCH ×2 (09:45→21:31)
[2018-04-23] MEDS: CAPECITABINE 1500 MG PO SCH ×2 (09:45→20:00)
[2018-04-23] MEDS: Acetaminophen 325 MG Tab PO PRN ×2 (11:55→22:50)
--- NOTE | 2018-04-23 12:06 | PCM.PN ---
- General Info Date of Service: 04/23/18 Functional Status: Reports: Pain Controlled, Tolerating Diet - Review of Systems General: Reports: Weakness. Denies: Fever Gastrointestinal: Denies: Abdominal Pain Systems Review Comment:: no acute events overnight. Patient does feel a little better today. She did not have any fevers overnight. No points of abdominal pain or shortness of breath. She does endorse fatigue. Appetite is slowly better. No fevers overnight. Urine culture pending. Hemoglobin stable. MRI of the brain was normal. No significant shortness of breath. Lower extremity edema has resolved. - Patient Data Vitals - Most Recent: Last Vital Signs Temp 39.4 C H 04/23/18 11:55 Pulse 84 04/23/18 11:39 Resp 16 04/23/18 11:39 BP 94/51 L 04/23/18 11:39 Pulse Ox 94 L 04/23/18 11:39 Weight - Most Recent: 78.109 kg I&O - Last 24 Hours: Intake & Output 04/22/18 04/23/18 04/23/18 22:59 06:59 14:59 Intake Total 730 100 236 Output Total 400 400 Balance 330 100 -164 Lab Results Last 24 Hours: Laboratory Results - last 24 hr 04/23/18 04/23/18 Range/Units 05:45 05:45 WBC 10.1 (4.5-11.0) K/uL RBC 2.72 L (3.30-5.50) M/uL Hgb 8.1 L (12.0-15.0) g/dL Hct 26.8 L (36.0-48.0) % MCV 99 H (80-98) fL MCH 30 (27-31) pg MCHC 30 L (32-36) % Plt Count 255 (150-400) K/uL Sodium 139 L (140-148) mmol/L Potassium 4.2 (3.6-5.2) mmol/L Chloride 102 (100-108) mmol/L Carbon Dioxide 28 (21-32) mmol/L Anion Gap 13.2 (5.0-14.0) mmol/L BUN 22 H (7-18) mg/dL Creatinine 1.1 H (0.6-1.0) mg/dL Est Cr Clr Drug Dosing 47.03 mL/min Estimated GFR (MDRD) 50 L (>60) Glucose 127 H (74-106) mg/dL Calcium 8.0 L (8.5-10.1) mg/dL Med Orders - Current: Current Medications Acetaminophen (Tylenol) 650 mg PO Q4H PRN PRN Reason: Pain (Mild 1-3)/fever Last Admin: 04/23/18 11:55 Dose: 650 mg Carvedilol (Coreg) 6.25 mg PO BIDMEALS [facility] Last Admin: 04/23/18 07:37 Dose: 6.25 mg Ceftriaxone Sodium 1 gm/ (Sodium Chloride) 50 mls @ 100 mls/hr IV Q24H [facility] Last Admin: 04/22/18 13:31 Dose: 100 mls/hr Insulin Aspart (Novolog) 0 unit SUBCUT QIDACANDBED [facility]; Protocol Last Admin: 04/23/18 11:57 Dose: 3 unit Lactobacillus Rhamnosus (Culturelle) 1 cap PO BID [facility] Last Admin: 04/23/18 09:45 Dose: 1 cap Loperamide HCl (Imodium) 2 mg PO QID PRN PRN Reason: Diarrhea Metformin HCl (Glucophage) 500 mg PO DAILY@0800 [facility] Last Admin: 04/23/18 07:38 Dose: 500 mg Capecitabine ( Capecitabine) 1,500 MgPom 1,500 mg PO BID [facility] Last Admin: 04/23/18 09:45 Dose: 1,500 mg Ondansetron HCl (Zofran Odt) 4 mg PO Q6H PRN PRN Reason: Nausea able to take PO Pravastatin Sodium (Pravachol) 80 mg PO BEDTIME [facility] Last Admin: 04/22/18 21:05 Dose: 80 mg Sodium Chloride (Saline Flush) 10 ml FLUSH ASDIRECTED PRN PRN Reason: Keep Vein Open Last Admin: 04/21/18 12:31 Dose: 10 ml Discontinued Medications Furosemide (Lasix) 40 mg IVPUSH ONETIME ONE Stop: 04/21/18 17:31 Last Admin: 04/21/18 18:22 Dose: 40 mg Gadoteridol (Prohance) 15 ml IV .A DIRECTED PRN PRN Reason: RADIOLOGY EXAM Stop: 04/22/18 13:30 Last Admin: 04/22/18 13:20 Dose: 15 ml Sodium Chloride (Normal Saline) 90 mls @ 4 mls/sec IV ASDIRECTED [facility] Last Admin: 04/21/18 14:25 Dose: 4 mls/sec Magnesium Sulfate 2 gm/ Premix 50 mls @ 25 mls/hr IV Q6H [facility] Stop: 04/23/18 05:59 Last Admin: 04/23/18 03:07 Dose: 25 mls/hr Iopamidol (Isovue-370 (76%)) 100 ml IV . DIRECTED [facility] Last Admin: 04/21/18 14:25 Dose: 100 ml - Exam Quality Assessment: No: Supplemental Oxygen General: Alert, Oriented, Cooperative, No Acute Distress Neck: Supple Lungs: Clear to Auscultation, Normal Respiratory Effort Cardiovascular: Regular Rate, Regular Rhythm GI/Abdominal Exam: Normal Bowel Sounds, Soft, Non-Tender Extremities: No Pedal Edema Psy/Mental Status: Alert, Normal Affect - Problem List & Annotations (1) Diastolic congestive heart failure SNOMED Code(s): 521279401, 569261872 Code(s): I50.30 - UNSPECIFIED DIASTOLIC (CONGESTIVE) HEART FAILURE Status: Ruled-out Current Visit: Yes Qualifiers: Heart failure chronicity: acute Qualified Code(s): I50.31 - Acute diastolic (congestive) heart failure (2) Anemia of chronic disease SNOMED Code(s): 191046444 Code(s): D63.8 - ANEMIA IN OTHER CHRONIC DISEASES CLASSIFIED ELSEWHERE Status: Acute Current Visit: Yes (3) Breast cancer SNOMED Code(s): 481872061 Code(s): C50.919 - MALIGNANT NEOPLASM OF UNSP SITE OF UNSPECIFIED FEMALE BREAST Status: Chronic Priority: Low Current Visit: Yes Qualifiers: Breast location: unspecified site of breast Estrogen receptor status: unspecified Patient sex: female Laterality: right Qualified Code(s): C50.911 - Malignant neoplasm of unspecified site of right female breast (4) Liver metastasis Status: Chronic Current Visit: No Annotation/Comment:: secondary to breast cancer - Problem List Review Problem List Initiated/Reviewed/Updated: Yes - My Orders Last 24 Hours: My Active Orders 04/22/18 12:00 cefTRIAXone [Rocephin] 1 gm Sodium Chloride 0.9% [Normal Saline] 50 ml IV Q24H 04/22/18 15:12 CULTURE URINE [RM] Routine 04/23/18 16:30 GLUCOSE POC LAB TO COLLECT [POC] QIDACANDBED 04/23/18 21:00 GLUCOSE POC LAB TO COLLECT [POC] QIDACANDBED 04/24/18 05:00 BASIC METABOLIC PANEL,BMP [CHEM] Timed CBC W/O DIFF,HEMOGRAM [HEME] Timed (1) 04/24/18 07:30 GLUCOSE POC LAB TO COLLECT [POC] QIDACANDBED 04/24/18 11:30 GLUCOSE POC LAB TO COLLECT [POC] QIDACANDBED 04/24/18 16:30 GLUCOSE POC LAB TO COLLECT [POC] QIDACANDBED 04/24/18 21:00 GLUCOSE POC LAB TO COLLECT [POC] QIDACANDBED 04/25/18 07:30 GLUCOSE POC LAB TO COLLECT [POC] QIDACANDBED 04/25/18 11:30 GLUCOSE POC LAB TO COLLECT [POC] QIDACANDBED 04/25/18 16:30 GLUCOSE POC LAB TO COLLECT [POC] QIDACANDBED 04/25/18 21:00 GLUCOSE POC LAB TO COLLECT [POC] QIDACANDBED 04/26/18 07:30 GLUCOSE POC LAB TO COLLECT [POC] QIDACANDBED 04/26/18 11:30 GLUCOSE POC LAB TO COLLECT [POC] QIDACANDBED 04/26/18 16:30 GLUCOSE POC LAB TO COLLECT [POC] QIDACANDBED 04/26/18 21:00 GLUCOSE POC LAB TO COLLECT [POC] QIDACANDBED - Plan Plan:: ASSESSMENT AND PLAN - Fever - urinalysis mildly suggestive of infection but no definite source for infection at this time. Planning empiric coverage of urinary source with culture pending and close monitoring. tennis better after antibiotics initiated , culture pending. -Ceftriaxone -Follow-up urine culture Anemia due to chronic disease/malignancy - last blood transfusion approximately one month ago. Hemoglobin improved and stable following transfusion. -Repeat hemoglobin in the morning, transfuse if less than 7 Metastatic breast cancer - known liver mets, on day 4 of 14 of treatment with capecitabine. Did have oncology f/u the day of admission. -cont capecitabine -outpatient f/u Type 2 diabetes mellitus - on only metformin at this time. Blood sugars acceptable. -Continue metformin -Sliding-scale insulin Suspected diastolic congestive heart failure (now ruled out) - patient with progressive shortness of breath and lower extremity edema but echocardiogram appears normal at this time. Congestive heart failure doubtful based on this information. May be contribution from venous insufficiency and/or low albumin. -No diuresis indicated -Decrease dose of carvedilol to 6.25 mg with low blood pressure and fatigue -Urbano stockings -REECE inhibitor contraindicated due to hypotension Maintenance issues - - DVT prophylaxis - URBANO stockings - GI prophylaxis - not indicated - Nutrition - low sodium diet Disposition - anticipate discharge to home after the hospital stay, possibly tomorrow if stable overnight Ravinder Mcguire M.D.
[2018-04-23] MEDS: cefTRIAXone 1 GM in Sodium Chloride 0.9% 50 ML IV SCH (12:35)
[2018-04-23] MEDS: Pravastatin 20 MG Tab PO SCH (21:32)
[2018-04-24] MEDS: Acetaminophen 325 MG Tab PO PRN ×2 (07:43→13:20)
[2018-04-24] MEDS: Insulin Aspart 100 Units/ML 3 ML Pen SUBCUT SCH ×2 (07:51→12:09)
[2018-04-24] MEDS: metFORMIN 500 MG Tab PO SCH (07:52)
[2018-04-24] MEDS: Carvedilol 6.25 MG Tab PO SCH (07:55)
[2018-04-24] MEDS: CAPECITABINE 1500 MG PO SCH (08:01)
[2018-04-24] MEDS: Lactobacillus Rhamnosus GG (Probiotic) Cap PO SCH (08:01)
[2018-04-24 10:41] VITALS: BP 92/54
[2018-04-24] MEDS: cefTRIAXone 1 GM in Sodium Chloride 0.9% 50 ML IV SCH (12:05)
--- NOTE | 2018-04-24 13:22 | PCM.DCSUM1 ---
Discharge Summary - Hospital Course Brief History: 62-year-old female with history of breast cancer metastatic to the liver who presented with weakness, fatigue and shortness of breath. She was admitted for workup of suspected congestive heart failure and management of malignancy associated anemia. - Discharge Data Discharge Date: 04/24/18 Discharge Disposition: Home, Self-Care 01 Condition: Fair - Discharge Diagnosis/Problem(s) (1) Diastolic congestive heart failure SNOMED Code(s): 773639449, 887763954 ICD Code: I50.30 - UNSPECIFIED DIASTOLIC (CONGESTIVE) HEART FAILURE Status : Ruled-out Qualifiers: Heart failure chronicity: acute Qualified Code(s): I50.31 - Acute diastolic (congestive) heart failure (2) Anemia of chronic disease SNOMED Code(s): 890314521 ICD Code: D63.8 - ANEMIA IN OTHER CHRONIC DISEASES CLASSIFIED ELSEWHERE Status: Acute (3) Breast cancer SNOMED Code(s): 521493847 ICD Code: C50.919 - MALIGNANT NEOPLASM OF UNSP SITE OF UNSPECIFIED FEMALE BREAST Status: Chronic Priority: Low Qualifiers: Breast location: unspecified site of breast Estrogen receptor status: unspecified Patient sex: female Laterality: right Qualified Code(s): C50.911 - Malignant neoplasm of unspecified site of right female breast (4) Liver metastasis Status: Chronic Problem Details: secondary to breast cancer - Patient Summary/Data Hospital Course: Charmaine was sent to the emergency room from the [facility] where she was being seen in routine follow-up. There she reported fatigue and shortness of breath as well as increased lower extremity swelling. There was concern that she may have potentially pulmonary embolism and/or portal vein thrombosis so she was sent to the emergency room. Workup in the emergency room included a CT pulmonary angiogram as well as a vascular study looking at the portal vein and peripheral artery runoff. There is no evidence for pulmonary embolism. There is no evidence for pulmonary infection. There is no evidence for portal vein thrombosis. She did have some areas of moderate stenosis noted throughout the abdomen but no acute occlusions. lower extremity ultrasound did not reveal DVT. her hemoglobin level was 6.7. Urine sample was mildly suggestive of infection and she was empirically started on antibiotics and admitted to the hospital for further management and blood transfusion. There was concern for congestive heart failure, likely diastolic with her abdominal bloating and lower extremity edema. She did receive a dose of furosemide in the emergency room. she received 1 unit of packed red blood cells via transfusion. Overnight following admission she did have a low-grade fevers. The morning after admission her lower extremity edema has essentially resolved. We did get an echocardiogram which showed normal left ventricular function and no significant valve abnormalities making diastolic heart failure unlikely. I suspect her lower extremity edema was a result of venous insufficiency and low albumin. Her shortness of breath did improve with the diuresis. Regarding the fevers, initially a urinary source was suspected but her culture is not growing any specific bacteria. She did receive a couple doses of antibiotics but continued to have fevers. We did also get an MRI of her brain to ensure that there is no intracranial metastases or infection and this was unremarkable. her hemoglobin gudelia to slightly above 8 after the transfusion and though it did dip slightly on the morning of discharge I suspect things are stable and she does not have any evidence for bleeding at this time. On the morning of discharge we sat down and reviewed the extensive workup and lack of a definite source for fever and/or infection. At this point I suspect her fevers are a result of her metastatic breast cancer and/or the treatment for her cancer. I do not recommend additional antibiotics at this point. Patient is struggling with lack of a more concrete diagnosis but she did have an extensive workup with MRI of the brain, CT scan of the chest, abdomen and pelvis as well as vascular studies and an echocardiogram. She will be following up with the infusion Center next week. - Patient Instructions Diet: Regular Diet as Tolerated Activity: As Tolerated Showering/Bathing: May Shower Notify Provider of: Fever, Increased Pain, Nausea and/or Vomiting Other/Special Instructions: 1. You were in the hospital for management of weakness, shortness of breath and malignancy associated anemia. Initially there was concern for congestive heart failure but your heart is functioning normally at this time. I suspect the shortness of breath and lower extremity edema were multifactorial but no specific treatment will make them better other than treating the cancer and optimizing nutritional status. I believe the fevers that you are experiencing are related to your cancer and/or treatment for your cancer. No specific treatment other than symptom management is required for the fevers. I would recommend taking 1000 mg of acetaminophen 3 times daily to help minimize symptoms. 2. Continue your usual home medications as previously prescribed. 3. Follow up with the Infusion Center next week. 4. Seek medical attention if you develop severe shortness of breath, persistent vomiting or severe diarrhea. - Discharge Plan Prescriptions/Med Rec: Acetaminophen [Acetaminophen Extra Strength] 1,000 mg PO TID #200 tablet Home Medications: Home Meds Carvedilol [Coreg] 25 mg PO BID 08/22/15 [History] Fish Oil/[place]-3 Fatty Acids [Fish Oil 1,000 MG] 1,000 mg PO BID 08/22/15 [ History] Pravastatin [Pravachol] 80 mg PO BEDTIME 08/22/15 [History] Urea [Urea 40% Crm] 1 applic TOP DAILY 08/22/15 [History] metFORMIN [Glucophage] 500 mg PO DAILY 08/22/15 [History] Cyanocobalamin (Vitamin B-12) [Vitamin B-12] 1,000 mcg SL DAILY 01/28/18 [ History] Loperamide [Imodium] 2 mg PO QID PRN 01/31/18 [History] Cholecalciferol (Vitamin D3) [Vitamin D3] 2,000 units PO DAILY tablet 02/01/18 [Rx] Lactobacillus Rhamnosus GG [Culturelle] 1 cap PO BID cap 02/01/18 [Rx] Magnesium Oxide 500 mg PO TID 02/23/18 [History] Vitamin E 1,000 unit PO DAILY 03/19/18 [History] Zinc 50 mg PO DAILY 03/19/18 [History] Capecitabine 1,500 mg PO BID 04/21/18 [History] Acetaminophen [Acetaminophen Extra Strength] 1,000 mg PO TID #200 tablet [Rx] Patient Handouts: Blood Transfusion, Adult , Blood Transfusion, Adult, Care After Referrals: Ansley Bolden PA [Primary Care Provider] - (f/u as needed after the hospital stay) - Patient Data Vitals - Most Recent: Last Vital Signs Temp 37.4 C 04/24/18 10:37 Pulse 77 04/24/18 10:37 Resp 18 04/24/18 10:37 BP 92/54 L 04/24/18 10:37 Pulse Ox 97 04/24/18 10:37 Weight - Most Recent: 78.109 kg I&O - Last 24 hours: Intake & Output 04/23/18 04/24/18 04/24/18 22:59 06:59 14:59 Intake Total 890 290 Output Total 125 300 Balance 765 -10 Lab Results - Last 24 hrs: Laboratory Results - last 24 hr 04/24/18 04/24/18 Range/Units 05:25 05:25 WBC 9.3 (4.5-11.0) K/uL RBC 2.38 L (3.30-5.50) M/uL Hgb 7.1 L (12.0-15.0) g/dL Hct 23.5 L (36.0-48.0) % MCV 99 H (80-98) fL MCH 30 (27-31) pg MCHC 30 L (32-36) % Plt Count 258 (150-400) K/uL Sodium 137 L (140-148) mmol/L Potassium 4.3 (3.6-5.2) mmol/L Chloride 102 (100-108) mmol/L Carbon Dioxide 26 (21-32) mmol/L Anion Gap 13.3 (5.0-14.0) mmol/L BUN 18 (7-18) mg/dL Creatinine 1.2 H (0.6-1.0) mg/dL Est Cr Clr Drug Dosing 43.11 mL/min Estimated GFR (MDRD) 45 L (>60) Glucose 178 H (74-106) mg/dL Calcium 7.4 L (8.5-10.1) mg/dL FLOYD Results - Last 24 hrs: Microbiology 04/22/18 15:12 Urine Culture - Preliminary Urine, Clean Catch MIXED POSITIVE SAÚL DAY 1 Med Orders - Current: Current Medications Acetaminophen (Tylenol) 650 mg PO Q4H PRN PRN Reason: Pain (Mild 1-3)/fever Last Admin: 04/24/18 07:43 Dose: 650 mg Carvedilol (Coreg) 6.25 mg PO BIDMEALS [facility] Last Admin: 04/24/18 07:55 Dose: 6.25 mg Ceftriaxone Sodium 1 gm/ (Sodium Chloride) 50 mls @ 100 mls/hr IV Q24H [facility] Last Admin: 04/24/18 12:05 Dose: 100 mls/hr Insulin Aspart (Novolog) 0 unit SUBCUT QIDACANDBED [facility]; Protocol Last Admin: 04/24/18 12:09 Dose: 4 unit Lactobacillus Rhamnosus (Culturelle) 1 cap PO BID [facility] Last Admin: 04/24/18 08:01 Dose: 1 cap Loperamide HCl (Imodium) 2 mg PO QID PRN PRN Reason: Diarrhea Metformin HCl (Glucophage) 500 mg PO DAILY@0800 [facility] Last Admin: 04/24/18 07:52 Dose: 500 mg Capecitabine ( Capecitabine) 1,500 MgPom 1,500 mg PO BID [facility] Last Admin: 04/24/18 08:01 Dose: 1,500 mg Ondansetron HCl (Zofran Odt) 4 mg PO Q6H PRN PRN Reason: Nausea able to take PO Pravastatin Sodium (Pravachol) 80 mg PO BEDTIME [facility] Last Admin: 04/23/18 21:32 Dose: 80 mg Sodium Chloride (Saline Flush) 10 ml FLUSH ASDIRECTED PRN PRN Reason: Keep Vein Open Last Admin: 04/21/18 12:31 Dose: 10 ml Discontinued Medications Furosemide (Lasix) 40 mg IVPUSH ONETIME ONE Stop: 04/21/18 17:31 Last Admin: 04/21/18 18:22 Dose: 40 mg Gadoteridol (Prohance) 15 ml IV .A DIRECTED PRN PRN Reason: RADIOLOGY EXAM Stop: 04/22/18 13:30 Last Admin: 04/22/18 13:20 Dose: 15 ml Sodium Chloride (Normal Saline) 90 mls @ 4 mls/sec IV ASDIRECTED [facility] Last Admin: 04/21/18 14:25 Dose: 4 mls/sec Magnesium Sulfate 2 gm/ Premix 50 mls @ 25 mls/hr IV Q6H [facility] Stop: 04/23/18 05:59 Last Admin: 04/23/18 03:07 Dose: 25 mls/hr Iopamidol (Isovue-370 (76%)) 100 ml IV . DIRECTED [facility] Last Admin: 04/21/18 14:25 Dose: 100 ml - Exam Quality Assessment: Denies: Supplemental Oxygen General: Reports: Alert, Oriented, Cooperative, No Acute Distress Neck: Reports: Supple Lungs: Reports: Clear to Auscultation, Normal Respiratory Effort Cardiovascular: Reports: Regular Rate, Regular Rhythm, Murmurs GI/Abdominal Exam: Normal Bowel Sounds, Soft, Tender (RUQ). No: Guarding Extremities: Pedal Edema (bilateral to above midshin) Skin: Reports: Warm, Dry Psy/Mental Status: Reports: Alert, Normal Affect
== END 2018-04-24 14:15 | disposition home or self-care (01) | DRG 598 ==
LOC: JP.ED 11:10 → JP.MS 15:45
PROVIDERS: ADMIT Internal Medicine; ATTEND Internal Medicine
PROC: 30233N1 Transfusion of Nonautologous Red Blood Cells into Peripheral Vein, Percutaneous Approach (ICD-10-PCS; principal; 2018-04-21)
DX: I11.0 Hypertensive heart disease with heart failure (principal); I50.31 Acute diastolic (congestive) heart failure; C50.911 Malignant neoplasm of unspecified site of right female breast; C78.7 Secondary malignant neoplasm of liver and intrahepatic bile duct; D63.0 Anemia in neoplastic disease; D63.8 Anemia in other chronic diseases classified elsewhere; E11.40 Type 2 diabetes mellitus with diabetic neuropathy, unspecified; R06.02 Shortness of breath; R60.9 Edema, unspecified; I87.2 Venous insufficiency (chronic) (peripheral); Z79.84 Long term (current) use of oral hypoglycemic drugs; Z92.21 Personal history of antineoplastic chemotherapy; R79.1 Abnormal coagulation profile; E78.00 Pure hypercholesterolemia, unspecified; M19.90 Unspecified osteoarthritis, unspecified site; Z87.440 Personal history of urinary (tract) infections; H54.7 Unspecified visual loss; Z88.8 Allergy status to other drugs, medicaments and biological substances; Z89.422 Acquired absence of other left toe(s); Z89.412 Acquired absence of left great toe; I10 Essential (primary) hypertension; R50.9 Fever, unspecified
CPT/HCPCS: 36415; 36430; 71046 ×2; 71275 ×2; 75635 ×2; 80053; 82962; 83605; 83880; 84484; 85025; 85379; 86850; 86900; 86901; 86920; 86922; 93005; 99285; J7030; J7050; P9016; Q9967; 70553; 70553-26; 80048; 81001; 83735; 85027; 87086; 93308; 93970; 93970-26; A9270-GY; A9576; J0696; J1940; J3475

== ENCOUNTER 2018-05-22 19:36 | Inpatient (IN) | payer OTHER ==
[2018-05-22] MEDS ORDERED: Lactated Ringers 1,000 ML IV SCH (20:45)
--- NOTE | 2018-05-22 20:48 | EDM.PDOC ---
ED HPI GENERAL MEDICAL PROBLEM - General Chief Complaint: General Stated Complaint: WEAKNESS Time Seen by Provider: 05/22/18 20:23 Source of Information: Reports: Patient, Family, Old Records, RN Notes Reviewed History Limitations: Reports: No Limitations - History of Present Illness INITIAL COMMENTS - FREE TEXT/NARRATIVE: 62-year-old female presents to the emergency department today complaint of weakness, she has a known history of breast cancer with metastases to the liver is currently on chemotherapy last did chemotherapy on of last week. She states over the last 24 hours she has progressively gotten more weak unable to care for herself unable to make it to the bathroom has been incontinent of urine and stool. Denies any fevers nausea vomiting shortness of breath or chest pains. She has had poor oral intake has not taken her medications and has had increased leg swelling known history of diastolic congestive heart failure - Related Data Allergies Allergy/AdvReac Type Severity Reaction Status Date / Time hydrochlorothiazide AdvReac .hypokalemi Verified 05/22/18 20:02 a Home Meds: Home Meds Carvedilol [Coreg] 25 mg PO BID 08/22/15 [History] Fish Oil/[place]-3 Fatty Acids [Fish Oil 1,000 MG] 1,000 mg PO BID 08/22/15 [ History] Pravastatin [Pravachol] 80 mg PO BEDTIME 08/22/15 [History] Urea [Urea 40% Crm] 1 applic TOP DAILY 08/22/15 [History] metFORMIN [Glucophage] 500 mg PO DAILY 08/22/15 [History] Cyanocobalamin (Vitamin B-12) [Vitamin B-12] 1,000 mcg SL DAILY 01/28/18 [ History] Loperamide [Imodium] 2 mg PO QID PRN 01/31/18 [History] Cholecalciferol (Vitamin D3) [Vitamin D3] 2,000 units PO DAILY tablet 02/01/18 [Rx] Lactobacillus Rhamnosus GG [Culturelle] 1 cap PO BID cap 02/01/18 [Rx] Magnesium Oxide 500 mg PO TID 02/23/18 [History] Acetaminophen [Acetaminophen Extra Strength] 1,000 mg PO TID #200 tablet [Rx] Past Medical History HEENT History: Reports: Cataract, Impaired Vision Other HEENT History: wears glasses Cardiovascular History: Reports: Afib, Heart Failure, High Cholesterol, Hypertension Gastrointestinal History: Reports: Jaundice Other Gastrointestinal History: as a child Genitourinary History: Reports: UTI, Recurrent [employer] History: Reports: Musculoskeletal History: Reports: Amputation, Arthritis Neurological History: Reports: Neuropathy, Diabetic Endocrine/Metabolic History: Reports: Diabetes, Type II Hematologic History: Reports: Anemia, Blood Transfusion(s) Immunologic History: Reports: Immunosuppression, Other (See Below) Other Immunologic History: chemo Oncologic (Cancer) History: Reports: Breast, Liver Dermatologic History: Reports: Cellulitis - Infectious Disease History Infectious Disease History: Reports: C-Difficile Other Infectious Disease History: 2 years ago - Past Surgical History GI Surgical History: Reports: Colonoscopy Female Surgical History: Reports: Breast Biopsy Musculoskeletal Surgical History: Reports: Amputation Other Musculoskeletal Surgeries/Procedures:: left foot all 5 toes amputated Oncologic Surgical History: Reports: Biopsy of Breast, Lumpectomy Other Oncologic Surgeries/Procedures: Right side Dermatological Surgical History: Reports: Skin Biopsy, Skin Graft Social & Family History - Family History Family Medical History: Noncontributory HEENT: Reports: Impaired Vision Cardiac: Reports: CAD, [place], Pacemaker Other Cardiac Family History: father. sister Respiratory: Reports: Asthma Other Respiratory Family Hisory: daughter GI: Reports: Hiatal Hernia Other GI Family History: daughter Musculoskeletal: Reports: Other (See Below) Other Musculoskeletal Family History: scoliosis Neurological: Reports: Dementia Other Neurological Family History: grandmother Endocrine/Metabolic: Reports: Diabetes, type II Other Endocrine/Metabolic Family History: grandmother Oncologic: Reports: Lymphoma Other Oncologic Family History: granddaughter - Tobacco Use Smoking Status *Q: Former Smoker Used Tobacco, but Quit: Yes Month/Year Tobacco Last Used: 2005 - Caffeine Use Caffeine Use: Reports: Soda - Recreational Drug Use Recreational Drug Use: No ED ROS GENERAL - Review of Systems Review Of Systems: See Below Constitutional: Reports: Weakness, Fatigue HEENT: Reports: Other (Dry mouth) Respiratory: Reports: No Symptoms Cardiovascular: Reports: Edema GI/Abdominal: Reports: No Symptoms : Reports: No Symptoms, Other Skin: Reports: No Symptoms Neurological: Reports: No Symptoms ED EXAM, GENERAL - Physical Exam Exam: See Below Free Text/Narrative:: General: Female, ill-appearing, alert and oriented x3 HEENT: head is atraumatic normocephalic, eyes pupils equal round reactive to light, sclera clear no conjunctivitis appreciated. Ears tympanic membranes clear and mahan landmarks and light reflex are present bilaterally canals are clear. Nose no septal deviation, nares are clear, no blood present. Mouth mucosa is dry multiple sores superficial mucosa and pink no erythema or exudate noted in soft palate, tongue is midline uvula is midline, dentition is intact. Neck: Supple no thyromegaly no tracheal deviation. Nodes: Cervical nodes subclavicular nodes nontender no palpable lymphadenopathy noted. Lungs: clear to auscultation bilaterally with symmetrical respirations, no adventitious noise appreciated. CV: Regular rate and rhythm S1 and S2 appreciated no murmurs rubs or gallops noted. Abdomen: Soft, nontender, no palpable masses or organomegaly appreciated, no distention no guarding bowel sounds are present, . Neuro: Cranial nerves II through XII grossly intact Skin: Warm and dry, intact Extremities: +2 pitting edema bilaterally Course - Vital Signs Last Recorded V/S: Last Vital Signs Temp 101.4 F H 05/22/18 20:43 Pulse 90 05/22/18 20:03 Resp 20 05/22/18 20:43 BP 95/58 L 05/22/18 21:16 Pulse Ox 98 05/22/18 20:43 - Orders/Labs/Meds Orders: Active Orders 24 hr Category Date Time Status EKG Documentation Completion [RC] ASDIRECTED Care 05/22/18 20:47 Active Vital Signs [RC] Q1H Care 05/22/18 20:43 Active Chest 1V Frontal [CR] Urgent Exams 05/22/18 20:46 Taken CULTURE BLOOD [BC] Urgent Lab 05/22/18 21:00 Received CULTURE BLOOD [BC] Urgent Lab 05/22/18 21:10 Received CULTURE URINE [RM] Urgent Lab 05/22/18 21:46 Ordered UA W/MICROSCOPIC [URIN] Urgent Lab 05/22/18 20:59 Ordered Lactated Ringers [Ringers, Lactated] 1,000 ml Med 05/22/18 20:45 Active IV ASDIRECTED Piperacillin/Tazobactam [Zosyn] 3.375 gm Med 05/22/18 21:30 Active Sodium Chloride 0.9% [Normal Saline] 50 ml IV Q6H Blood Culture x2 Reflex Set [OM.PC] Urgent Oth 05/22/18 20:43 Ordered EKG 12 Lead [EK] Stat Ther 05/22/18 20:46 Ordered Medication Orders Lactated Ringer's (Ringers, Lactated) 1,000 mls @ 999 mls/hr IV ASDIRECTED [facility] Last Admin: 05/22/18 21:09 Dose: 999 mls/hr Piperacillin Sod/Tazobactam (Sod 3.375 gm/ Sodium Chloride) 50 mls @ 100 mls/ hr IV Q6H [facility] Labs: Laboratory Tests 05/22/18 05/22/18 05/22/18 Range/Units 20:59 21:00 21:00 WBC 8.7 (4.5-11.0) K/uL RBC 3.09 L (3.30-5.50) M/uL Hgb 9.2 L D (12.0-15.0) g/dL Hct 31.6 L (36.0-48.0) % MCV 102 H (80-98) fL MCH 30 (27-31) pg MCHC 29 L (32-36) % Plt Count 266 (150-400) K/uL Neut % (Auto) 87 H (36-66) % Lymph % (Auto) 9 L (24-44) % [place]rell % (Auto) 3 (2-6) % Eos % (Auto) 0 L (2-4) % Baso % (Auto) 0 (0-1) % Sodium 133 L (140-148) mmol/L Potassium 4.6 (3.6-5.2) mmol/L Chloride 97 L (100-108) mmol/L Carbon Dioxide 30 (21-32) mmol/L Anion Gap 10.6 (5.0-14.0) mmol/L BUN 30 H D (7-18) mg/dL Creatinine 1.1 H (0.6-1.0) mg/dL Est Cr Clr Drug Dosing 45.20 mL/min Estimated GFR (MDRD) 50 L (>60) Glucose 303 H (74-106) mg/dL Lactic Acid (0.4-2.0) mmol/L Calcium 7.7 L (8.5-10.1) mg/dL Total Bilirubin 0.8 D (0.2-1.0) mg/dL AST 59 H D (15-37) U/L ALT 22 (12-78) U/L Alkaline Phosphatase 356 H (46-116) U/L C-Reactive Protein 34.02 H (0.0-0.3) mg/dL Total Protein 6.3 L (6.4-8.2) g/dL Albumin 1.1 L (3.4-5.0) g/dL Globulin 5.2 H (2.3-3.5) g/dL Albumin/Globulin Ratio 0.2 L (1.2-2.2) Urine Color Yellow Urine Appearance Slightly cloudy Urine pH 8.0 (4.5-8.0) Ur Specific [place] 1.015 (1.008-1.030) Urine Protein 30 H (NEGATIVE) mg/dL Urine Glucose (UA) 50 H (NEGATIVE) mg/dL Urine Ketones Negative (NEGATIVE) mg/dL Urine Occult Blood Large (NEGATIVE) Urine Nitrite Negative (NEGATIVE) Urine Bilirubin Negative (NEGATIVE) Urine Urobilinogen Normal (NORMAL) mg/dL Ur Leukocyte Esterase Small (NEGATIVE) Urine RBC 5-10 H (0-5) Urine WBC 30-40 H (0-5) Ur Epithelial Cells Few Amorphous Sediment Not seen Urine Bacteria Many Urine Mucus Few 05/22/18 Range/Units 21:00 WBC (4.5-11.0) K/uL RBC (3.30-5.50) M/uL Hgb (12.0-15.0) g/dL Hct (36.0-48.0) % MCV (80-98) fL MCH (27-31) pg MCHC (32-36) % Plt Count (150-400) K/uL Neut % (Auto) (36-66) % Lymph % (Auto) (24-44) % [place] % (Auto) (2-6) % Eos % (Auto) (2-4) % Baso % (Auto) (0-1) % Sodium (140-148) mmol/L Potassium (3.6-5.2) mmol/L Chloride (100-108) mmol/L Carbon Dioxide (21-32) mmol/L Anion Gap (5.0-14.0) mmol/L BUN (7-18) mg/dL Creatinine (0.6-1.0) mg/dL Est Cr Clr Drug Dosing mL/min Estimated GFR (MDRD) (>60) Glucose (74-106) mg/dL Lactic Acid 2.3 H (0.4-2.0) mmol/L Calcium (8.5-10.1) mg/dL Total Bilirubin (0.2-1.0) mg/dL AST (15-37) U/L ALT (12-78) U/L Alkaline Phosphatase (46-116) U/L C-Reactive Protein (0.0-0.3) mg/dL Total Protein (6.4-8.2) g/dL Albumin (3.4-5.0) g/dL Globulin (2.3-3.5) g/dL Albumin/Globulin Ratio (1.2-2.2) Urine Color Urine Appearance Urine pH (4.5-8.0) Ur Specific [place] (1.008-1.030) Urine Protein (NEGATIVE) mg/dL Urine Glucose (UA) (NEGATIVE) mg/dL Urine Ketones (NEGATIVE) mg/dL Urine Occult Blood (NEGATIVE) Urine Nitrite (NEGATIVE) Urine Bilirubin (NEGATIVE) Urine Urobilinogen (NORMAL) mg/dL Ur Leukocyte Esterase (NEGATIVE) Urine RBC (0-5) Urine WBC (0-5) Ur Epithelial Cells Amorphous Sediment Urine Bacteria Urine Mucus Meds: Medications Generic Name Dose Route Start Last Admin Trade Name Freq PRN Reason Stop Dose Admin Lactated Ringer's 1,000 mls @ 999 mls/hr 05/22/18 20:45 05/22/18 21:09 Ringers, Lactated IV 999 mls/hr ASDIRECTED YAKOV Administration Piperacillin Sod/Tazobactam 50 mls @ 100 mls/hr 05/22/18 21:30 Sod 3.375 gm/ Sodium Chloride IV Q6H [facility] Departure - Departure Time of Disposition: 21:48 Disposition: Admitted As Inpatient 65 Condition: Poor Clinical Impression: Sepsis due to urinary tract infection - Discharge Information Referrals: Ansley Bolden PA [Primary Care Provider] - Forms: ED Department Discharge Critical Care Note - Critical Care Note Total Time (mins): 20 - My Orders Last 24 Hours: My Active Orders 05/22/18 20:43 Vital Signs [RC] Q1H Blood Culture x2 Reflex Set [OM.PC] Urgent 05/22/18 20:45 Lactated Ringers [Ringers, Lactated] 1,000 ml IV ASDIRECTED 05/22/18 20:46 Chest 1V Frontal [CR] Urgent EKG 12 Lead [EK] Stat 05/22/18 20:47 EKG Documentation Completion [RC] ASDIRECTED 05/22/18 20:59 UA W/MICROSCOPIC [URIN] Urgent 05/22/18 21:00 CULTURE BLOOD [BC] Urgent 05/22/18 21:10 CULTURE BLOOD [BC] Urgent 05/22/18 21:30 Piperacillin/Tazobactam [Zosyn] 3.375 gm Sodium Chloride 0.9% [Normal Saline] 50 ml IV Q6H 05/22/18 21:46 CULTURE URINE [RM] Urgent - Assessment/Plan Last 24 Hours: My Active Orders 05/22/18 20:43 Vital Signs [RC] Q1H Blood Culture x2 Reflex Set [OM.PC] Urgent 05/22/18 20:45 Lactated Ringers [Ringers, Lactated] 1,000 ml IV ASDIRECTED 05/22/18 20:46 Chest 1V Frontal [CR] Urgent EKG 12 Lead [EK] Stat 05/22/18 20:47 EKG Documentation Completion [RC] ASDIRECTED 05/22/18 20:59 UA W/MICROSCOPIC [URIN] Urgent 05/22/18 21:00 CULTURE BLOOD [BC] Urgent 05/22/18 21:10 CULTURE BLOOD [BC] Urgent 05/22/18 21:30 Piperacillin/Tazobactam [Zosyn] 3.375 gm Sodium Chloride 0.9% [Normal Saline] 50 ml IV Q6H 05/22/18 21:46 CULTURE URINE [RM] Urgent Plan: Assessment Acuity = acute Site and laterality = sepsis secondary to urinary source complicated patient with known history of breast cancer on chemotherapy Etiology = suspicious for bacterial cause Manifestations = fever, lethargy, hypotension Location of injury = Home Lab values = hemoglobin low at 9.2 consistent normochromic anemia, sodium low at 133 consistent hyponatremia, creatinine elevated 1.1 consistent with acute renal failure stage GIII a, glucose elevated 303 consistent hyperglycemia, lactic acid elevated 2.3 consistent lactic acidosis, AST 59 consistent elevated liver enzymes CRP elevated 34 albumin low at 1.1 consistent hypoalbuminemia urinalysis reveals 5-10 rbc's consistent with hematuria, 30-40 wbc's consists with pyuria 50 of glucose consistent glucose urea 30 protein consistent proteinuria, EKG demonstrates a sinus rhythm no ST changes or depressions, chest x-ray I did review films myself I cannot appreciate any acute process, the official read from radiology is pending Plan [Called and discussed case with hospitalist rodent control worker he agreed to come and evaluate the patient emergency department for admission, blood cultures urine culture pending she has received 1 L of lactated Ringer's antibiotics Zosyn initiated This note was dictated using [employer] voice recognition software please call with any questions on syntax or grammar.
[2018-05-22] MEDS: Piperacillin/Tazobactam 3.375 GM in Sodium Chloride 0.9% 50 ML IV SCH (21:59)
[2018-05-22] MEDS: Sodium Chloride 0.9% 1,000 ML IV SCH (22:10)
--- NOTE | 2018-05-22 22:50 | PCM.HP ---
H&P History of Present Illness - General Date of Service: 05/22/18 Admit Problem/Dx: Admission Diagnosis/Problem Admission Diagnosis/Problem Acute cystitis without hematuria Source of Information: Patient, Family, Provider History Limitations: Reports: Altered Mental Status (lethargic) - History of Present Illness Initial Comments - Free Text/Narative: Charmaine presents to the emergency room tonight with progressive weakness and lethargy. Because of her lethargy family provides most of the information. Family reports that she had chemotherapy on Thursday of this week and did fairly well through the rest of the week. Yesterday morning she seemed to be fairly normal and even into the afternoon seemed normal although her appetite was not as good as usual. She did not drink much water which was unusual. Yesterday evening she was very fatigued and went to bed early. She had chills throughout the day but did not experience any fevers that she is aware of. When family trying to wake her up this morning she said she was very sleepy and did not want to get up. This persisted throughout the better part of the day. She was so weak that she could not get out of bed to go to the bathroom and soiled herself and the sheets. She is not currently endorsing any abdominal pain though she is very tender with palpation of the right side of the abdomen. She does not feel short of breath and has not been coughing. She has not noticed change in her urine or stool from baseline. Workup in the emergency room was suggestive of a urinary tract infection and early sepsis. She has received antibiotics and cultures have been collected. She 'll be admitted for additional management. - Related Data Allergies/Adverse Reactions: Allergies Allergy/AdvReac Type Severity Reaction Status Date / Time hydrochlorothiazide AdvReac .hypokalemi Verified 05/22/18 20:02 a Home Medications: Home Meds Carvedilol [Coreg] 25 mg PO BID 08/22/15 [History] Fish Oil/Dovray-3 Fatty Acids [Fish Oil 1,000 MG] 1,000 mg PO BID 08/22/15 [ History] Pravastatin [Pravachol] 80 mg PO BEDTIME 08/22/15 [History] Urea [Urea 40% Crm] 1 applic TOP DAILY 08/22/15 [History] metFORMIN [Glucophage] 500 mg PO DAILY 08/22/15 [History] Cyanocobalamin (Vitamin B-12) [Vitamin B-12] 1,000 mcg SL DAILY 01/28/18 [ History] Loperamide [Imodium] 2 mg PO QID PRN 01/31/18 [History] Cholecalciferol (Vitamin D3) [Vitamin D3] 2,000 units PO DAILY tablet 02/01/18 [Rx] Lactobacillus Rhamnosus GG [Culturelle] 1 cap PO BID cap 02/01/18 [Rx] Magnesium Oxide 500 mg PO TID 02/23/18 [History] Acetaminophen [Acetaminophen Extra Strength] 1,000 mg PO TID #200 tablet [Rx] Past Medical History HEENT History: Reports: Cataract, Impaired Vision Other HEENT History: wears glasses Cardiovascular History: Reports: Afib, Heart Failure, High Cholesterol, Hypertension Gastrointestinal History: Reports: Jaundice Other Gastrointestinal History: as a child Genitourinary History: Reports: UTI, Recurrent WINDER HAND History: Reports: Musculoskeletal History: Reports: Amputation, Arthritis Neurological History: Reports: Neuropathy, Diabetic Endocrine/Metabolic History: Reports: Diabetes, Type II Hematologic History: Reports: Anemia, Blood Transfusion(s) Immunologic History: Reports: Immunosuppression, Other (See Below) Other Immunologic History: chemo Oncologic (Cancer) History: Reports: Breast, Liver Dermatologic History: Reports: Cellulitis - Infectious Disease History Infectious Disease History: Reports: C-Difficile Other Infectious Disease History: 2 years ago - Past Surgical History GI Surgical History: Reports: Colonoscopy Female Surgical History: Reports: Breast Biopsy Musculoskeletal Surgical History: Reports: Amputation Other Musculoskeletal Surgeries/Procedures:: left foot all 5 toes amputated Oncologic Surgical History: Reports: Biopsy of Breast, Lumpectomy Other Oncologic Surgeries/Procedures: Right side Dermatological Surgical History: Reports: Skin Biopsy, Skin Graft Social & Family History - Family History Family Medical History: Noncontributory HEENT: Reports: Impaired Vision Cardiac: Reports: CAD, NM, Pacemaker Other Cardiac Family History: father. sister Respiratory: Reports: Asthma Other Respiratory Family Hisory: daughter GI: Reports: Hiatal Hernia Other GI Family History: daughter Musculoskeletal: Reports: Other (See Below) Other Musculoskeletal Family History: scoliosis Neurological: Reports: Dementia Other Neurological Family History: grandmother Endocrine/Metabolic: Reports: Diabetes, type II Other Endocrine/Metabolic Family History: grandmother Oncologic: Reports: Lymphoma Other Oncologic Family History: granddaughter - Tobacco Use Smoking Status *Q: Former Smoker Used Tobacco, but Quit: Yes Month/Year Tobacco Last Used: 2005 - Caffeine Use Caffeine Use: Reports: Soda - Recreational Drug Use Recreational Drug Use: No H&P Review of Systems - Review of Systems: Review Of Systems: See Below Free Text/Narrative: A complete 12 point review of systems was obtained. Pertinent positives and negatives are noted in the history of present illness. All other systems were reviewed and were negative except as noted. Exam - Exam Exam: See Below - Vital Signs Vital Signs: Last Vital Signs Temp 38.6 C H 05/22/18 20:43 Pulse 86 05/22/18 22:15 Resp 12 05/22/18 22:15 BP 124/60 05/22/18 22:15 Pulse Ox 95 05/22/18 22:15 Weight: 77.111 kg - Exam Quality Assessment: No: Supplemental Oxygen General: Alert, Oriented, Cooperative, Lethargic HEENT: Conjunctiva Clear, Pupils Equal, Other (mild mucositis). No: Mucosa Moist & [place] (dry) Neck: Supple. No: Lymphadenopathy Lungs: Clear to Auscultation, Normal Respiratory Effort Cardiovascular: Regular Rate, Regular Rhythm, Systolic Murmur GI/Abdominal Exam: Normal Bowel Sounds, Soft, No Distention, Tender (diffuse, most tender in RUQ) Back Exam: No: Full Range of Motion Extremities: Pedal Edema (pitting edema to the knee bilaterally ). No: Increased Warmth Skin: Warm, Dry Neuro Extensive - Mental Status: Alert, Oriented x3, Slow Response to Commands Neuro Extensive - Motor, Sensory, Reflexes: CN II-XII Intact. No: Dysarthria, Abnormal Motor, Tremor Psychiatric: Alert, Normal Affect - Patient Data Lab Results Last 24 hrs: Laboratory Results - last 24 hr 05/22/18 05/22/18 05/22/18 Range/Units 20:59 21:00 21:00 WBC 8.7 (4.5-11.0) K/uL RBC 3.09 L (3.30-5.50) M/uL Hgb 9.2 L D (12.0-15.0) g/dL Hct 31.6 L (36.0-48.0) % MCV 102 H (80-98) fL MCH 30 (27-31) pg MCHC 29 L (32-36) % Plt Count 266 (150-400) K/uL Neut % (Auto) 87 H (36-66) % Lymph % (Auto) 9 L (24-44) % [place] % (Auto) 3 (2-6) % Eos % (Auto) 0 L (2-4) % Baso % (Auto) 0 (0-1) % Sodium 133 L (140-148) mmol/L Potassium 4.6 (3.6-5.2) mmol/L Chloride 97 L (100-108) mmol/L Carbon Dioxide 30 (21-32) mmol/L Anion Gap 10.6 (5.0-14.0) mmol/L BUN 30 H D (7-18) mg/dL Creatinine 1.1 H (0.6-1.0) mg/dL Est Cr Clr Drug Dosing 45.20 mL/min Estimated GFR (MDRD) 50 L (>60) Glucose 303 H (74-106) mg/dL Lactic Acid (0.4-2.0) mmol/L Calcium 7.7 L (8.5-10.1) mg/dL Total Bilirubin 0.8 D (0.2-1.0) mg/dL AST 59 H D (15-37) U/L ALT 22 (12-78) U/L Alkaline Phosphatase 356 H (46-116) U/L C-Reactive Protein 34.02 H (0.0-0.3) mg/dL Total Protein 6.3 L (6.4-8.2) g/dL Albumin 1.1 L (3.4-5.0) g/dL Globulin 5.2 H (2.3-3.5) g/dL Albumin/Globulin Ratio 0.2 L (1.2-2.2) Urine Color Yellow Urine Appearance Slightly cloudy Urine pH 8.0 (4.5-8.0) Ur Specific [place] 1.015 (1.008-1.030) Urine Protein 30 H (NEGATIVE) mg/dL Urine Glucose (UA) 50 H (NEGATIVE) mg/dL Urine Ketones Negative (NEGATIVE) mg/dL Urine Occult Blood Large (NEGATIVE) Urine Nitrite Negative (NEGATIVE) Urine Bilirubin Negative (NEGATIVE) Urine Urobilinogen Normal (NORMAL) mg/dL Ur Leukocyte Esterase Small (NEGATIVE) Urine RBC 5-10 H (0-5) Urine WBC 30-40 H (0-5) Ur Epithelial Cells Few Amorphous Sediment Not seen Urine Bacteria Many Urine Mucus Few 05/22/18 Range/Units 21:00 WBC (4.5-11.0) K/uL RBC (3.30-5.50) M/uL Hgb (12.0-15.0) g/dL Hct (36.0-48.0) % MCV (80-98) fL MCH (27-31) pg MCHC (32-36) % Plt Count (150-400) K/uL Neut % (Auto) (36-66) % Lymph % (Auto) (24-44) % [place] % (Auto) (2-6) % Eos % (Auto) (2-4) % Baso % (Auto) (0-1) % Sodium (140-148) mmol/L Potassium (3.6-5.2) mmol/L Chloride (100-108) mmol/L Carbon Dioxide (21-32) mmol/L Anion Gap (5.0-14.0) mmol/L BUN (7-18) mg/dL Creatinine (0.6-1.0) mg/dL Est Cr Clr Drug Dosing mL/min Estimated GFR (MDRD) (>60) Glucose (74-106) mg/dL Lactic Acid 2.3 H (0.4-2.0) mmol/L Calcium (8.5-10.1) mg/dL Total Bilirubin (0.2-1.0) mg/dL AST (15-37) U/L ALT (12-78) U/L Alkaline Phosphatase (46-116) U/L C-Reactive Protein (0.0-0.3) mg/dL Total Protein (6.4-8.2) g/dL Albumin (3.4-5.0) g/dL Globulin (2.3-3.5) g/dL Albumin/Globulin Ratio (1.2-2.2) Urine Color Urine Appearance Urine pH (4.5-8.0) Ur Specific [place] (1.008-1.030) Urine Protein (NEGATIVE) mg/dL Urine Glucose (UA) (NEGATIVE) mg/dL Urine Ketones (NEGATIVE) mg/dL Urine Occult Blood (NEGATIVE) Urine Nitrite (NEGATIVE) Urine Bilirubin (NEGATIVE) Urine Urobilinogen (NORMAL) mg/dL Ur Leukocyte Esterase (NEGATIVE) Urine RBC (0-5) Urine WBC (0-5) Ur Epithelial Cells Amorphous Sediment Urine Bacteria Urine Mucus Result Diagrams: 05/22/18 21:00 05/22/18 21:00 Imaging Impressions Last 24 hrs: CXR - images personally reviewed - lungs are clear with no infiltrate, mass, effusion. Heart size is normal. EKG INTERPRETATION EKG Date: 05/22/18 Rhythm: NSR Rate (Beats/Min): 88 [place]: Normal P-Wave: Present QRS: Normal ST-T: Normal QT: Normal *Q Meaningful Use (ADM) - VTE Risk Assess *Q Each Risk Factor Represents 1 Point: Swollen Legs, Current, Obesity ( BMI > 25 kg/m2), Congestive heart failure (CHF), Sepsis Total Score 1 Point Risk Factors: 4 Each Risk Factor Represents 2 Points: Age 60 - 74 Years, Malignancy (present or previous) Total Score 2 Point Risk Factors: 4 Each Risk Factor Represents 3 Points: None Total Score 3 Point Risk Factors: 0 Each Risk Factor Represents 5 Points: None Total Score 5 Point Risk Factors: 0 Venous Thromboembolism Risk Factor Score *Q: 8 - Problem List (1) Sepsis due to urinary tract infection SNOMED Code(s): 882734220 ICD Code: A41.9 - SEPSIS, UNSPECIFIED ORGANISM; N39.0 - URINARY TRACT INFECTION, SITE NOT SPECIFIED Status: Acute Current Visit: Yes (2) Liver metastasis Status: Chronic Current Visit: No Problem Details: secondary to breast cancer (3) Breast cancer SNOMED Code(s): 698803800 ICD Code: C50.919 - MALIGNANT NEOPLASM OF UNSP SITE OF UNSPECIFIED FEMALE BREAST Status: Chronic Priority: Low Current Visit: No Qualifiers: Breast location: unspecified site of breast Estrogen receptor status: unspecified Patient sex: female Laterality: right Qualified Code(s): C50.911 - Malignant neoplasm of unspecified site of right female breast (4) Type 2 diabetes mellitus SNOMED Code(s): 61614700 ICD Code: E11.9 - TYPE 2 DIABETES MELLITUS WITHOUT COMPLICATIONS Status: Chronic Current Visit: No Qualifiers: 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 long term care social worker insulin use: without care home use 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 complication status: without complication Qualified Code(s): E11.9 - Type 2 diabetes mellitus without complications Problem List Initiated/Reviewed/Updated: Yes Orders Last 24hrs: Active Orders 24 hr Category Date Time Status Patient Status Manage Transfer [TRANSFER] Routine ADT 05/22/18 22:32 Ordered EKG Documentation Completion [RC] ASDIRECTED Care 05/22/18 20:47 Active Vital Signs [RC] Q1H Care 05/22/18 20:43 Active Chest 1V Frontal [CR] Urgent Exams 05/22/18 20:46 Taken CULTURE BLOOD [BC] Urgent Lab 05/22/18 21:00 Received CULTURE BLOOD [BC] Urgent Lab 05/22/18 21:10 Received CULTURE URINE [RM] Urgent Lab 05/22/18 21:30 Received UA W/MICROSCOPIC [URIN] Urgent Lab 05/22/18 20:59 Ordered Lactated Ringers [Ringers, Lactated] 1,000 ml Med 05/22/18 20:45 Active IV ASDIRECTED Piperacillin/Tazobactam [Zosyn] 3.375 gm Med 05/22/18 21:30 Active Sodium Chloride 0.9% [Normal Saline] 50 ml IV Q6H Sodium Chloride 0.9% [Normal Saline] 1,000 ml Med 05/22/18 22:15 Active IV ASDIRECTED Blood Culture x2 Reflex Set [OM.PC] Urgent Oth 05/22/18 20:43 Ordered Resuscitation Status Routine Resus Stat 05/22/18 22:34 Ordered EKG 12 Lead [EK] Stat Ther 05/22/18 20:46 Ordered Medication Orders Lactated Ringer's (Ringers, Lactated) 1,000 mls @ 999 mls/hr IV ASDIRECTED PENDING SALE TO [facility] Last Admin: 05/22/18 21:09 Dose: 999 mls/hr Piperacillin Sod/Tazobactam (Sod 3.375 gm/ Sodium Chloride) 50 mls @ 100 mls/ hr IV Q6H PENDING SALE TO [facility] Last Admin: 05/22/18 21:59 Dose: 100 mls/hr Sodium Chloride (Normal Saline) 1,000 mls @ 125 mls/hr IV ASDIRECTED PENDING SALE TO [facility] Last Admin: 05/22/18 22:10 Dose: 125 mls/hr Assessment/Plan Comment:: ASSESSMENT AND PLAN - Acute cystitis with sepsis - evidence for sepsis includes greater than 20 point drop in blood pressure, borderline tachycardia and lactic acidosis. Urine sample suggestive of infection and the patient is febrile. -Antibiotic coverage with Pip/Tazo -IV fluids -Repeat lactic acid level -Follow-up urine culture Type 2 diabetes mellitus with hyperglycemia - elevated sugar likely a complication of the infection and sepsis. -3 units of insulin now -Metformin to restart in the morning -Medium dose sliding scale insulin Metastatic breast cancer - oncology provider recently informed the patient that life expectancy is likely limited to a few months at this point. Patient no longer desires to have chemotherapy. -Outpatient follow-up as scheduled next Thursday Maintenance issues - - DVT prophylaxis - mechanical - GI prophylaxis - not indicated - Nutrition - diabetic diet - Arceo catheter - not indicated CODE STATUS - patient wishes to receive cardiopulmonary resuscitation but does not want intubation Admission justification - This patient will be admitted for inpatient services and is medically appropriate meeting medical necessity for inpatient admission as outlined in my documentation. I reasonably expect the patient will require inpatient services that span a period time over 2 midnights. I reasonably expect this patient to be discharged or transferred within 96 hours [facility]. Disposition - anticipate discharge to home after the hospital stay Primary care physician - Ansley Mcguire M.D.
[2018-05-22] MEDS ORDERED: Ibuprofen 400 MG Tab PO PRN (23:03)
[2018-05-22] MEDS ORDERED: Loperamide 2 MG Cap PO PRN (23:03)
[2018-05-22] MEDS ORDERED: oxyCODONE 5 MG Tab PO PRN (23:03)
[2018-05-22] MEDS ORDERED: Ondansetron 4 MG Tab.DIS PO PRN (23:03)
[2018-05-22] MEDS ORDERED: Morphine 2 MG/ML Syringe IVPUSH PRN (23:03)
[2018-05-22] MEDS ORDERED: Ondansetron 4 MG/2 ML SDV IV PRN (23:03)
[2018-05-23] MEDS: Acetaminophen 500 MG Tab PO SCH ×4 (00:02→21:17)
[2018-05-23] MEDS: Piperacillin/Tazobactam 3.375 GM in Sodium Chloride 0.9% 50 ML IV SCH (03:42)
[2018-05-23] MEDS: Sodium Chloride 0.9% 1,000 ML IV SCH (06:53)
[2018-05-23] MEDS: Insulin Aspart 100 Units/ML 3 ML Pen SUBCUT SCH ×5 (07:53→21:16)
[2018-05-23] MEDS: metFORMIN 500 MG Tab PO SCH (07:54)
[2018-05-23] MEDS: Lactobacillus Rhamnosus GG (Probiotic) Cap PO SCH ×2 (08:00→21:17)
[2018-05-23] MEDS: Piperacillin/Tazobactam/Dext 3.375 GM in Premix Bag 1 BAG IV SCH ×3 (09:57→22:15)
[2018-05-23] MEDS: Lidocaine 2% 30 ML, Alum Hydrox/Mag Hydrox/Simeth 30 ML, diphenhydrAMINE 75 MG PO PRN ×3 (10:20)
--- NOTE | 2018-05-23 11:43 | PCM.PN ---
- General Info Date of Service: 05/23/18 Functional Status: Reports: Pain Controlled, Tolerating Diet - Review of Systems General: Reports: Fever, Weakness Systems Review Comment:: there were no acute events overnight. She is more alert and interactive today. She reports that she feels quite a bit better today with some improvement in her appetite and strength. She does not have any significant issues with pain. She did require a small quantity of oxygen overnight but does not feel short of breath. Temperature curve has improved since admission. Urine culture is growing a gram-negative audelia. - Patient Data Vitals - Most Recent: Last Vital Signs Temp 35.9 C 05/23/18 10:44 Pulse 80 05/23/18 10:44 Resp 16 05/23/18 10:44 BP 81/49 L 05/23/18 10:44 Pulse Ox 93 L 05/23/18 10:44 Weight - Most Recent: 78.925 kg I&O - Last 24 Hours: Intake & Output 05/22/18 05/23/18 05/23/18 22:59 06:59 14:59 Intake Total 50 Balance 50 Lab Results Last 24 Hours: Laboratory Results - last 24 hr 05/22/18 05/22/18 05/22/18 Range/Units 20:59 21:00 21:00 WBC 8.7 (4.5-11.0) K/uL RBC 3.09 L (3.30-5.50) M/uL Hgb 9.2 L D (12.0-15.0) g/dL Hct 31.6 L (36.0-48.0) % MCV 102 H (80-98) fL MCH 30 (27-31) pg MCHC 29 L (32-36) % Plt Count 266 (150-400) K/uL Neut % (Auto) 87 H (36-66) % Lymph % (Auto) 9 L (24-44) % Coffee % (Auto) 3 (2-6) % Eos % (Auto) 0 L (2-4) % Baso % (Auto) 0 (0-1) % Sodium 133 L (140-148) mmol/L Potassium 4.6 (3.6-5.2) mmol/L Chloride 97 L (100-108) mmol/L Carbon Dioxide 30 (21-32) mmol/L Anion Gap 10.6 (5.0-14.0) mmol/L BUN 30 H D (7-18) mg/dL Creatinine 1.1 H (0.6-1.0) mg/dL Est Cr Clr Drug Dosing 45.20 mL/min Estimated GFR (MDRD) 50 L (>60) Glucose 303 H (74-106) mg/dL Lactic Acid (0.4-2.0) mmol/L Calcium 7.7 L (8.5-10.1) mg/dL Total Bilirubin 0.8 D (0.2-1.0) mg/dL AST 59 H D (15-37) U/L ALT 22 (12-78) U/L Alkaline Phosphatase 356 H (46-116) U/L C-Reactive Protein 34.02 H (0.0-0.3) mg/dL Total Protein 6.3 L (6.4-8.2) g/dL Albumin 1.1 L (3.4-5.0) g/dL Globulin 5.2 H (2.3-3.5) g/dL Albumin/Globulin Ratio 0.2 L (1.2-2.2) Urine Color Yellow Urine Appearance Slightly cloudy Urine pH 8.0 (4.5-8.0) Ur Specific [place] 1.015 (1.008-1.030) Urine Protein 30 H (NEGATIVE) mg/dL Urine Glucose (UA) 50 H (NEGATIVE) mg/dL Urine Ketones Negative (NEGATIVE) mg/dL Urine Occult Blood Large (NEGATIVE) Urine Nitrite Negative (NEGATIVE) Urine Bilirubin Negative (NEGATIVE) Urine Urobilinogen Normal (NORMAL) mg/dL Ur Leukocyte Esterase Small (NEGATIVE) Urine RBC 5-10 H (0-5) Urine WBC 30-40 H (0-5) Ur Epithelial Cells Few Amorphous Sediment Not seen Urine Bacteria Many Urine Mucus Few 05/22/18 05/23/18 05/23/18 Range/Units 21:00 01:00 05:46 WBC 5.7 (4.5-11.0) K/uL RBC 2.61 L (3.30-5.50) M/uL Hgb 8.2 L (12.0-15.0) g/dL Hct 26.1 L (36.0-48.0) % MCV 100 H (80-98) fL MCH 31 (27-31) pg MCHC 31 L (32-36) % Plt Count 143 L (150-400) K/uL Neut % (Auto) (36-66) % Lymph % (Auto) (24-44) % Coffee % (Auto) (2-6) % Eos % (Auto) (2-4) % Baso % (Auto) (0-1) % Sodium (140-148) mmol/L Potassium (3.6-5.2) mmol/L Chloride (100-108) mmol/L Carbon Dioxide (21-32) mmol/L Anion Gap (5.0-14.0) mmol/L BUN (7-18) mg/dL Creatinine (0.6-1.0) mg/dL Est Cr Clr Drug Dosing mL/min Estimated GFR (MDRD) (>60) Glucose (74-106) mg/dL Lactic Acid 2.3 H 1.5 (0.4-2.0) mmol/L Calcium (8.5-10.1) mg/dL Total Bilirubin (0.2-1.0) mg/dL AST (15-37) U/L ALT (12-78) U/L Alkaline Phosphatase (46-116) U/L C-Reactive Protein (0.0-0.3) mg/dL Total Protein (6.4-8.2) g/dL Albumin (3.4-5.0) g/dL Globulin (2.3-3.5) g/dL Albumin/Globulin Ratio (1.2-2.2) Urine Color Urine Appearance Urine pH (4.5-8.0) Ur Specific [place] (1.008-1.030) Urine Protein (NEGATIVE) mg/dL Urine Glucose (UA) (NEGATIVE) mg/dL Urine Ketones (NEGATIVE) mg/dL Urine Occult Blood (NEGATIVE) Urine Nitrite (NEGATIVE) Urine Bilirubin (NEGATIVE) Urine Urobilinogen (NORMAL) mg/dL Ur Leukocyte Esterase (NEGATIVE) Urine RBC (0-5) Urine WBC (0-5) Ur Epithelial Cells Amorphous Sediment Urine Bacteria Urine Mucus 05/23/18 Range/Units 05:46 WBC (4.5-11.0) K/uL RBC (3.30-5.50) M/uL Hgb (12.0-15.0) g/dL Hct (36.0-48.0) % MCV (80-98) fL MCH (27-31) pg MCHC (32-36) % Plt Count (150-400) K/uL Neut % (Auto) (36-66) % Lymph % (Auto) (24-44) % Coffee % (Auto) (2-6) % Eos % (Auto) (2-4) % Baso % (Auto) (0-1) % Sodium 134 L (140-148) mmol/L Potassium 4.5 (3.6-5.2) mmol/L Chloride 100 (100-108) mmol/L Carbon Dioxide 27 (21-32) mmol/L Anion Gap 11.5 (5.0-14.0) mmol/L BUN 29 H (7-18) mg/dL Creatinine 1.1 H (0.6-1.0) mg/dL Est Cr Clr Drug Dosing 45.20 mL/min Estimated GFR (MDRD) 50 L (>60) Glucose 290 H (74-106) mg/dL Lactic Acid (0.4-2.0) mmol/L Calcium 7.3 L (8.5-10.1) mg/dL Total Bilirubin (0.2-1.0) mg/dL AST (15-37) U/L ALT (12-78) U/L Alkaline Phosphatase (46-116) U/L C-Reactive Protein (0.0-0.3) mg/dL Total Protein (6.4-8.2) g/dL Albumin (3.4-5.0) g/dL Globulin (2.3-3.5) g/dL Albumin/Globulin Ratio (1.2-2.2) Urine Color Urine Appearance Urine pH (4.5-8.0) Ur Specific [place] (1.008-1.030) Urine Protein (NEGATIVE) mg/dL Urine Glucose (UA) (NEGATIVE) mg/dL Urine Ketones (NEGATIVE) mg/dL Urine Occult Blood (NEGATIVE) Urine Nitrite (NEGATIVE) Urine Bilirubin (NEGATIVE) Urine Urobilinogen (NORMAL) mg/dL Ur Leukocyte Esterase (NEGATIVE) Urine RBC (0-5) Urine WBC (0-5) Ur Epithelial Cells Amorphous Sediment Urine Bacteria Urine Mucus [place]ha Results Last 24 Hours: Microbiology 05/22/18 21:30 Urine Culture - Preliminary Urine, Catheterized Med Orders - Current: Current Medications Acetaminophen (Tylenol Extra Strength) 1,000 mg PO TID [facility] Last Admin: 05/23/18 08:00 Dose: 1,000 mg Lidocaine HCl 30 ml/ Al Hydroxide/Mg Hydroxide 30 ml/Diphenhydramine HCl 75 mg 0 ml PO Q4H PRN PRN Reason: MOUTH CARE Last Admin: 05/23/18 10:20 Dose: 30 ml Piperacillin/Tazobactam/ (Dextrose 3.375 gm/ Premix) 50 mls @ 100 mls/hr IV Q6H [facility] Last Admin: 05/23/18 09:57 Dose: 100 mls/hr Sodium Chloride (Normal Saline) 1,000 mls @ 50 mls/hr IV ASDIRECTED [facility] Ibuprofen (Motrin) 400 mg PO Q6H PRN PRN Reason: Pain (mild 1-3) Insulin Aspart (Novolog) 3 unit SUBCUT ONETIME ONE Stop: 05/23/18 22:46 Insulin Aspart (Novolog) 0 unit SUBCUT QIDACANDBED [facility]; Protocol Lactobacillus Rhamnosus (Culturelle) 1 cap PO BID [facility] Last Admin: 05/23/18 08:00 Dose: 1 cap Loperamide HCl (Imodium) 2 mg PO QID PRN PRN Reason: Diarrhea Metformin HCl (Glucophage) 500 mg PO DAILY@0800 [facility] Last Admin: 05/23/18 07:54 Dose: 500 mg Morphine Sulfate (Morphine) 2 mg IVPUSH Q2H PRN PRN Reason: Pain (severe 7-10) Ondansetron HCl (Zofran Odt) 4 mg PO Q6H PRN PRN Reason: Nausea able to take PO Ondansetron HCl (Zofran) 4 mg IV Q6H PRN PRN Reason: Nausea/Vomiting Oxycodone HCl (Oxycodone) 5 mg PO Q4H PRN PRN Reason: Pain (moderate 4-6) Discontinued Medications Lactated Ringer's (Ringers, Lactated) 1,000 mls @ 999 mls/hr IV ASDIRECTED [facility] Last Admin: 05/22/18 21:09 Dose: 999 mls/hr Piperacillin Sod/Tazobactam (Sod 3.375 gm/ Sodium Chloride) 50 mls @ 100 mls/ hr IV Q6H [facility] Last Admin: 05/23/18 03:42 Dose: 100 mls/hr Sodium Chloride (Normal Saline) 1,000 mls @ 125 mls/hr IV ASDIRECTED [facility] Last Admin: 05/23/18 06:53 Dose: 125 mls/hr Insulin Aspart (Novolog) 0 unit SUBCUT QIDACANDBED [facility]; Protocol Last Admin: 05/23/18 07:53 Dose: 8 units - Exam Quality Assessment: Supplemental Oxygen General: Alert, Oriented, Cooperative, No Acute Distress Neck: Supple Lungs: Normal Respiratory Effort Cardiovascular: Regular Rate, Regular Rhythm GI/Abdominal Exam: Soft, No Distention Extremities: Pedal Edema Psy/Mental Status: Alert, Normal Affect - Problem List & Annotations (1) Sepsis due to urinary tract infection SNOMED Code(s): 683603124 Code(s): A41.9 - SEPSIS, UNSPECIFIED ORGANISM; N39.0 - URINARY TRACT INFECTION, SITE NOT SPECIFIED Status: Acute Current Visit: Yes (2) Liver metastasis Status: Chronic Current Visit: No Annotation/Comment:: secondary to breast cancer (3) Breast cancer SNOMED Code(s): 350415754 Code(s): C50.919 - MALIGNANT NEOPLASM OF UNSP SITE OF UNSPECIFIED FEMALE BREAST Status: Chronic Priority: Low Current Visit: No Qualifiers: Breast location: unspecified site of breast Estrogen receptor status: unspecified Patient sex: female Laterality: right Qualified Code(s): C50.911 - Malignant neoplasm of unspecified site of right female breast (4) Type 2 diabetes mellitus SNOMED Code(s): 02445794 Code(s): E11.9 - TYPE 2 DIABETES MELLITUS WITHOUT COMPLICATIONS Status: Chronic Current Visit: No Qualifiers: 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 terminal 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 insulin use: without group home use 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 complication status: without complication Qualified Code(s): E11.9 - Type 2 diabetes mellitus without complications - Problem List Review Problem List Initiated/Reviewed/Updated: Yes - My Orders Last 24 Hours: My Active Orders 05/22/18 22:34 Resuscitation Status Routine 05/22/18 23:03 Patient Status [ADT] Routine Communication Order [RC] PRN Communication Order [RC] PRN Diabetes Education [RC] Click to Edit Intake and Output [RC] QSHIFT Notify Provider Vital Signs [RC] ASDIRECTED Notify Provider [RC] PRN Oxygen Therapy [RC] PRN Up With Assistance [RC] ASDIRECTED Up to Chair [RC] QID VTE/DVT Education [RC] Per Unit Routine Vital Signs [RC] Q4H Acetaminophen [Tylenol Extra Strength] 1,000 mg PO TID Ibuprofen [Motrin] 400 mg PO Q6H PRN Lidocaine 2% [Xylocaine 2% Viscous] 30 ml Alum Hydrox/Mag Hydrox/Simeth [Mag-Al Plus] 30 ml diphenhydrAMINE [Benadryl] 75 mg 30 ml PO Q4H Loperamide [Imodium] 2 mg PO QID PRN Morphine 2 mg IVPUSH Q2H PRN Ondansetron [Zofran ODT] 4 mg PO Q6H PRN Ondansetron [Zofran] 4 mg IV Q6H PRN oxyCODONE 5 mg PO Q4H PRN Pressure Reduction Mattress [OM.PC] Routine URBANO Hose [Antiembolic Hose] [OM.PC] Routine 05/23/18 08:00 metFORMIN [Glucophage] 500 mg PO DAILY@0800 05/23/18 09:00 Lactobacillus Rhamnosus GG [Culturelle] 1 cap PO BID 05/23/18 11:41 Communication Order [RC] PRN Communication Order [RC] PRN 05/23/18 11:45 Sodium Chloride 0.9% [Normal Saline] 1,000 ml IV ASDIRECTED 05/23/18 16:30 GLUCOSE POC LAB TO COLLECT [POC] QIDACANDBED 05/23/18 17:00 Insulin Aspart [NovoLOG] See Protocol SUBCUT QIDACANDBED 05/23/18 21:00 GLUCOSE POC LAB TO COLLECT [POC] QIDACANDBED 05/23/18 22:45 Insulin Aspart [NovoLOG] 3 unit SUBCUT ONETIME ONE 05/24/18 05:00 BASIC METABOLIC PANEL,BMP [CHEM] Timed CBC W/O DIFF,HEMOGRAM [HEME] Timed (1) 05/24/18 07:00 PT Evaluation and Treatment [CONS] Routine 05/24/18 07:30 GLUCOSE POC LAB TO COLLECT [POC] QIDACANDBED 05/24/18 11:30 GLUCOSE POC LAB TO COLLECT [POC] QIDACANDBED 05/24/18 16:30 GLUCOSE POC LAB TO COLLECT [POC] QIDACANDBED 05/24/18 21:00 GLUCOSE POC LAB TO COLLECT [POC] QIDACANDBED 05/25/18 07:30 GLUCOSE POC LAB TO COLLECT [POC] QIDACANDBED 05/25/18 11:30 GLUCOSE POC LAB TO COLLECT [POC] QIDACANDBED 05/25/18 16:30 GLUCOSE POC LAB TO COLLECT [POC] QIDACANDBED 05/25/18 21:00 GLUCOSE POC LAB TO COLLECT [POC] QIDACANDBED 05/26/18 07:30 GLUCOSE POC LAB TO COLLECT [POC] QIDACANDBED 05/26/18 11:30 GLUCOSE POC LAB TO COLLECT [POC] QIDACANDBED 05/26/18 16:30 GLUCOSE POC LAB TO COLLECT [POC] QIDACANDBED 05/26/18 21:00 GLUCOSE POC LAB TO COLLECT [POC] QIDACANDBED 05/27/18 07:30 GLUCOSE POC LAB TO COLLECT [POC] QIDACANDBED 05/27/18 11:30 GLUCOSE POC LAB TO COLLECT [POC] QIDACANDBED 05/27/18 16:30 GLUCOSE POC LAB TO COLLECT [POC] QIDACANDBED 05/27/18 21:00 GLUCOSE POC LAB TO COLLECT [POC] QIDACANDBED 05/28/18 07:30 GLUCOSE POC LAB TO COLLECT [POC] QIDACANDBED 05/28/18 11:30 GLUCOSE POC LAB TO COLLECT [POC] QIDACANDBED - Plan Plan:: ASSESSMENT AND PLAN - Acute cystitis with sepsis - sepsis has resolved and lactic acid level is now normal. Patient more alert and interactive. Vital signs stable. Urine culture growing a gram-negative audelia. -Antibiotic coverage with Pip/Tazo -gentle IV fluids -Follow-up urine culture Type 2 diabetes mellitus with hyperglycemia - blood sugar is a little better but remains elevated. -restart metformin -high dose sliding scale insulin Metastatic breast cancer - oncology provider recently informed the patient that life expectancy is likely limited to a few months at this point. Patient no longer desires to have chemotherapy. after further discussion today she wishes to be DO NOT RESUSCITATE and DO NOT INTUBATE. -Outpatient follow-up as scheduled next Thursday Maintenance issues - - DVT prophylaxis - mechanical - GI prophylaxis - not indicated - Nutrition - diabetic diet - Arceo catheter - not indicated CODE STATUS - DNR/DNI Disposition - anticipate discharge to [facility] after the hospital stay Primary care physician - Ansley Mcguire M.D.
[2018-05-23] MEDS ORDERED: Sodium Chloride 0.9% 1,000 ML IV SCH (11:45)
[2018-05-23] MEDS ORDERED: Sodium Chloride 0.9% 500 ML IV SCH (15:45)
[2018-05-23] MEDS ORDERED: Insulin Aspart 100 Units/ML 3 ML Pen SUBCUT ONE (22:45)
[2018-05-24] MEDS: Piperacillin/Tazobactam/Dext 3.375 GM in Premix Bag 1 BAG IV SCH ×2 (04:12→09:14)
[2018-05-24] MEDS: Lidocaine 2% 30 ML, Alum Hydrox/Mag Hydrox/Simeth 30 ML, diphenhydrAMINE 75 MG PO PRN ×3 (07:32)
[2018-05-24] MEDS: Insulin Aspart 100 Units/ML 3 ML Pen SUBCUT SCH ×4 (07:35→21:27)
[2018-05-24] MEDS: metFORMIN 500 MG Tab PO SCH (07:36)
[2018-05-24] MEDS: Acetaminophen 500 MG Tab PO SCH ×3 (08:29→21:29)
[2018-05-24] MEDS: Lactobacillus Rhamnosus GG (Probiotic) Cap PO SCH ×2 (08:29→21:29)
--- NOTE | 2018-05-24 09:35 | CR ---
CHEST: Portable CLINICAL HISTORY:Weakness COMPARISON: 21 Apr 2018 FINDINGS: Heart and pulmonary vascularity appear normal. There is some streaky density in the left l duyen base laterally. This is likely some minimal scarring or atelectasis. IMPRESSION: No acute cardiopulmonary process Linear scarring or atelectasis in the left lung base
--- NOTE | 2018-05-24 12:44 | PCM.PN ---
- General Info Date of Service: 05/24/18 Subjective Update: This patient has been stable since yesterday with no recurrent temperature elevation, vital signs have been good. Appetite seems to be modestly improved at least oral intake of liquids has been better. Functional Status: Reports: Pain Controlled, Urinating - Review of Systems General: Reports: Weakness. Denies: Fever, Chills Pulmonary: Reports: No Symptoms Cardiovascular: Reports: No Symptoms Gastrointestinal: Reports: No Symptoms Genitourinary: Reports: No Symptoms - Patient Data Vitals - Most Recent: Last Vital Signs Temp 98.5 F 05/24/18 12:28 Pulse 74 05/24/18 12:28 Resp 16 05/24/18 12:28 BP 126/64 05/24/18 12:28 Pulse Ox 97 05/24/18 11:21 Weight - Most Recent: 173 lb 15.997 oz I&O - Last 24 Hours: Intake & Output 05/23/18 05/24/18 05/24/18 22:59 06:59 14:59 Intake Total 3118 139 Output Total 300 Balance 3118 -300 139 Lab Results Last 24 Hours: Laboratory Results - last 24 hr 05/24/18 05/24/18 05/24/18 Range/Units 05:00 05:00 08:33 WBC 4.2 L (4.5-11.0) K/uL RBC 2.37 L (3.30-5.50) M/uL Hgb 7.2 L (12.0-15.0) g/dL Hct 24.3 L (36.0-48.0) % MCV 103 H (80-98) fL MCH 30 (27-31) pg MCHC 30 L (32-36) % Plt Count 136 L (150-400) K/uL Sodium 136 L (140-148) mmol/L Potassium 3.9 (3.6-5.2) mmol/L Chloride 102 (100-108) mmol/L Carbon Dioxide 26 (21-32) mmol/L Anion Gap 11.9 (5.0-14.0) mmol/L BUN 23 H (7-18) mg/dL Creatinine 1.0 (0.6-1.0) mg/dL Est Cr Clr Drug Dosing 49.72 mL/min Estimated GFR (MDRD) 56 L (>60) Glucose 177 H (74-106) mg/dL Calcium 7.4 L (8.5-10.1) mg/dL Blood Type O NEGATIVE Gel Antibody Screen Negative Crossmatch See Detail [place] Results Last 24 Hours: Microbiology 05/22/18 21:30 Urine Culture - Final Urine, Catheterized Escherichia Coli 05/22/18 21:10 Aerobic Blood Culture - Preliminary Blood - Venous - Lab Draw NO GROWTH AFTER 1 DAY Anaerobic Blood Culture - Preliminary NO GROWTH AFTER 1 DAY 05/22/18 21:00 Aerobic Blood Culture - Preliminary Blood - Venous - Iv Start NO GROWTH AFTER 1 DAY Anaerobic Blood Culture - Preliminary NO GROWTH AFTER 1 DAY Med Orders - Current: Current Medications Acetaminophen (Tylenol Extra Strength) 1,000 mg PO TID [facility] Last Admin: 05/24/18 08:29 Dose: 1,000 mg Lidocaine HCl 30 ml/ Al Hydroxide/Mg Hydroxide 30 ml/Diphenhydramine HCl 75 mg 0 ml PO Q4H PRN PRN Reason: MOUTH CARE Last Admin: 05/24/18 07:32 Dose: 30 ml Ibuprofen (Motrin) 400 mg PO Q6H PRN PRN Reason: Pain (mild 1-3) Insulin Aspart (Novolog) 0 unit SUBCUT QIDACANDBED [facility]; Protocol Last Admin: 05/24/18 11:43 Dose: 3 units Lactobacillus Rhamnosus (Culturelle) 1 cap PO BID [facility] Last Admin: 05/24/18 08:29 Dose: 1 cap Loperamide HCl (Imodium) 2 mg PO QID PRN PRN Reason: Diarrhea Metformin HCl (Glucophage) 500 mg PO DAILY@0800 [facility] Last Admin: 05/24/18 07:36 Dose: 500 mg Morphine Sulfate (Morphine) 2 mg IVPUSH Q2H PRN PRN Reason: Pain (severe 7-10) Ondansetron HCl (Zofran Odt) 4 mg PO Q6H PRN PRN Reason: Nausea able to take PO Ondansetron HCl (Zofran) 4 mg IV Q6H PRN PRN Reason: Nausea/Vomiting Oxycodone HCl (Oxycodone) 5 mg PO Q4H PRN PRN Reason: Pain (moderate 4-6) Discontinued Medications Lactated Ringer's (Ringers, Lactated) 1,000 mls @ 999 mls/hr IV ASDIRECTED [facility] Last Admin: 05/22/18 21:09 Dose: 999 mls/hr Piperacillin Sod/Tazobactam (Sod 3.375 gm/ Sodium Chloride) 50 mls @ 100 mls/ hr IV Q6H [facility] Last Admin: 05/23/18 03:42 Dose: 100 mls/hr Sodium Chloride (Normal Saline) 1,000 mls @ 125 mls/hr IV ASDIRECTED [facility] Last Admin: 05/23/18 06:53 Dose: 125 mls/hr Piperacillin/Tazobactam/ (Dextrose 3.375 gm/ Premix) 50 mls @ 100 mls/hr IV Q6H [facility] Last Admin: 05/24/18 09:14 Dose: 100 mls/hr Sodium Chloride (Normal Saline) 1,000 mls @ 50 mls/hr IV ASDIRECTED [facility] Last Admin: 05/23/18 16:50 Dose: 50 mls/hr Sodium Chloride (Normal Saline) 500 mls @ 500 mls/hr IV ASDIRECTED [facility] Stop: 05/23/18 16:46 Last Admin: 05/23/18 15:49 Dose: 500 mls/hr Insulin Aspart (Novolog) 0 unit SUBCUT QIDACANDBED [facility]; Protocol Last Admin: 05/23/18 13:16 Dose: Not Given Insulin Aspart (Novolog) 3 unit SUBCUT ONETIME ONE Stop: 05/23/18 22:46 Last Admin: 05/24/18 01:39 Dose: Not Given - Exam Quality Assessment: DVT Prophylaxis General: Alert, Oriented, Cooperative, Mild Distress Lungs: Clear to Auscultation, Normal Respiratory Effort Cardiovascular: Regular Rate, Regular Rhythm, No Murmurs GI/Abdominal Exam: Soft, Non-Tender, No Organomegaly, No Distention Extremities: Non-Tender, Pedal Edema Skin: Warm, Dry - Problem List Review Problem List Initiated/Reviewed/Updated: Yes - My Orders Last 24 Hours: My Active Orders 05/24/18 08:33 Transfuse Red Blood Cells [COMM] Urgent 05/24/18 12:39 Convert IV to Saline Lock [OM.PC] Routine 05/24/18 12:45 Ciprofloxacin [Ciprofloxacin HCl] 500 mg PO BID 05/25/18 05:11 HGB [HEMOGLOBIN] [HEME] AM - Plan Plan:: ASSESSMENT AND PLAN - Acute cystitis with sepsis - sepsis has resolved and lactic acid level is now normal. Patient more alert and interactive. Vital signs stable. Urine culture has grown pansensitive Escherichia coli -Discontinue Pip/Tazo -Ciprofloxacin 500 mg by mouth twice a day -Saline lock IV Type 2 diabetes mellitus with hyperglycemia -improved from admission -metformin -high dose sliding scale insulin Metastatic breast cancer - oncology provider recently informed the patient that life expectancy is likely limited to a few months at this point. Patient no longer desires to have chemotherapy. after further discussion today she wishes to be DO NOT RESUSCITATE and DO NOT INTUBATE. -Outpatient follow-up as scheduled next Thursday Maintenance issues - - DVT prophylaxis - mechanical - GI prophylaxis - not indicated - Nutrition - diabetic diet - Arceo catheter - not indicated CODE STATUS - DNR/DNI Disposition - anticipate discharge to [facility] after the hospital stay Primary care physician - Ansley SANTIAGO
[2018-05-24] MEDS: Ciprofloxacin 500 MG Tab PO SCH (17:46)
[2018-05-25] MEDS: Insulin Aspart 100 Units/ML 3 ML Pen SUBCUT SCH ×4 (07:58→21:58)
[2018-05-25] MEDS: Lactobacillus Rhamnosus GG (Probiotic) Cap PO SCH ×2 (09:06→21:59)
[2018-05-25] MEDS: metFORMIN 500 MG Tab PO SCH (09:06)
[2018-05-25] MEDS: Ciprofloxacin 500 MG Tab PO SCH ×2 (09:06→17:14)
[2018-05-25] MEDS: Acetaminophen 500 MG Tab PO SCH ×3 (09:06→21:59)
--- NOTE | 2018-05-25 17:08 | PCM.PN ---
- General Info Date of Service: 05/25/18 Subjective Update: Ms. Herzog has been relatively stable over the past 24 hours, no significant temperature elevations and vital signs have been good. She feels that she has more energy following transfusion of one unit of red blood cells yesterday. We discussed options for discharge and at this time she does not want to consider detention placement and would like to discuss hospice admission further. Functional Status: Reports: Tolerating Diet, Ambulating, Urinating - Review of Systems General: Reports: Weakness. Denies: Fever, Chills Pulmonary: Reports: No Symptoms Cardiovascular: Reports: No Symptoms Gastrointestinal: Reports: No Symptoms Genitourinary: Reports: No Symptoms - Patient Data Vitals - Most Recent: Last Vital Signs Temp 95.3 F L 05/25/18 16:07 Pulse 76 05/25/18 16:07 Resp 16 05/25/18 16:07 BP 104/45 L 05/25/18 16:07 Pulse Ox 98 05/25/18 16:07 Weight - Most Recent: 173 lb 15.997 oz Lab Results Last 24 Hours: Laboratory Results - last 24 hr 05/25/18 Range/Units 04:45 Hgb 8.0 L (12.0-15.0) g/dL [facility] Results Last 24 Hours: Microbiology 05/22/18 21:10 Aerobic Blood Culture - Preliminary Blood - Venous - Lab Draw NO GROWTH AFTER 2 DAYS Anaerobic Blood Culture - Preliminary NO GROWTH AFTER 2 DAYS 05/22/18 21:00 Aerobic Blood Culture - Preliminary Blood - Venous - Iv Start NO GROWTH AFTER 2 DAYS Anaerobic Blood Culture - Preliminary NO GROWTH AFTER 2 DAYS Med Orders - Current: Current Medications Acetaminophen (Tylenol Extra Strength) 1,000 mg PO TID [facility] Last Admin: 05/25/18 14:20 Dose: 1,000 mg Carvedilol (Coreg) 25 mg PO BID [facility] Ciprofloxacin (Ciprofloxacin Hcl) 500 mg PO BIDAC [facility] Last Admin: 05/25/18 09:06 Dose: 500 mg Lidocaine HCl 30 ml/ Al Hydroxide/Mg Hydroxide 30 ml/Diphenhydramine HCl 75 mg 0 ml PO Q4H PRN PRN Reason: MOUTH CARE Last Admin: 05/24/18 07:32 Dose: 30 ml Ibuprofen (Motrin) 400 mg PO Q6H PRN PRN Reason: Pain (mild 1-3) Insulin Aspart (Novolog) 0 unit SUBCUT QIDACANDBED [facility]; Protocol Last Admin: 05/25/18 11:22 Dose: 3 units Lactobacillus Rhamnosus (Culturelle) 1 cap PO BID [facility] Last Admin: 05/25/18 09:06 Dose: 1 cap Loperamide HCl (Imodium) 2 mg PO QID PRN PRN Reason: Diarrhea Metformin HCl (Glucophage) 500 mg PO DAILY@0800 [facility] Last Admin: 05/25/18 09:06 Dose: 500 mg Morphine Sulfate (Morphine) 2 mg IVPUSH Q2H PRN PRN Reason: Pain (severe 7-10) Ondansetron HCl (Zofran Odt) 4 mg PO Q6H PRN PRN Reason: Nausea able to take PO Ondansetron HCl (Zofran) 4 mg IV Q6H PRN PRN Reason: Nausea/Vomiting Oxycodone HCl (Oxycodone) 5 mg PO Q4H PRN PRN Reason: Pain (moderate 4-6) Discontinued Medications Lactated Ringer's (Ringers, Lactated) 1,000 mls @ 999 mls/hr IV ASDIRECTED [facility] Last Admin: 05/22/18 21:09 Dose: 999 mls/hr Piperacillin Sod/Tazobactam (Sod 3.375 gm/ Sodium Chloride) 50 mls @ 100 mls/ hr IV Q6H [facility] Last Admin: 05/23/18 03:42 Dose: 100 mls/hr Sodium Chloride (Normal Saline) 1,000 mls @ 125 mls/hr IV ASDIRECTED [facility] Last Admin: 05/23/18 06:53 Dose: 125 mls/hr Piperacillin/Tazobactam/ (Dextrose 3.375 gm/ Premix) 50 mls @ 100 mls/hr IV Q6H [facility] Last Admin: 05/24/18 09:14 Dose: 100 mls/hr Sodium Chloride (Normal Saline) 1,000 mls @ 50 mls/hr IV ASDIRECTED [facility] Last Admin: 05/23/18 16:50 Dose: 50 mls/hr Sodium Chloride (Normal Saline) 500 mls @ 500 mls/hr IV ASDIRECTED [facility] Stop: 05/23/18 16:46 Last Admin: 05/23/18 15:49 Dose: 500 mls/hr Insulin Aspart (Novolog) 0 unit SUBCUT QIDACANDBED [facility]; Protocol Last Admin: 05/23/18 13:16 Dose: Not Given Insulin Aspart (Novolog) 3 unit SUBCUT ONETIME ONE Stop: 05/23/18 22:46 Last Admin: 05/24/18 01:39 Dose: Not Given - Exam General: Alert, Oriented, Cooperative, No Acute Distress Lungs: Clear to Auscultation, Normal Respiratory Effort Cardiovascular: Regular Rate, Regular Rhythm, No Murmurs GI/Abdominal Exam: Soft, Non-Tender, No Organomegaly, No Distention Extremities: Non-Tender, Pedal Edema Skin: Warm, Dry - Problem List Review Problem List Initiated/Reviewed/Updated: Yes - My Orders Last 24 Hours: My Active Orders 05/24/18 16:30 Ciprofloxacin [Ciprofloxacin HCl] 500 mg PO BIDAC 05/25/18 21:00 Carvedilol [Coreg] 25 mg PO BID - Plan Plan:: ASSESSMENT AND PLAN - Acute cystitis with sepsis - sepsis has resolved and lactic acid level is now normal. Patient more alert and interactive. Vital signs stable. Urine culture has grown pansensitive Escherichia coli -Ciprofloxacin 500 mg by mouth twice a day -Saline lock IV Type 2 diabetes mellitus with hyperglycemia -improved from admission -metformin -high dose sliding scale insulin Metastatic breast cancer - oncology provider recently informed the patient that life expectancy is likely limited to a few months at this point. Patient no longer desires to have chemotherapy. after further discussion today she wishes to be DO NOT RESUSCITATE and DO NOT INTUBATE. -Outpatient follow-up as scheduled next Thursday Palliative care-patient would like to consider hospice admission -Hospice consult Maintenance issues - - DVT prophylaxis - mechanical - GI prophylaxis - not indicated - Nutrition - diabetic diet - Arceo catheter - not indicated CODE STATUS - DNR/DNI Disposition - anticipate discharge to home with hospice admission Primary care physician - Ansley SANTIAGO
[2018-05-25] MEDS: Carvedilol 25 MG Tab PO SCH (21:59)
[2018-05-26] MEDS: Insulin Aspart 100 Units/ML 3 ML Pen SUBCUT SCH ×4 (09:09→21:32)
[2018-05-26] MEDS: metFORMIN 500 MG Tab PO SCH (09:11)
[2018-05-26] MEDS: Ciprofloxacin 500 MG Tab PO SCH ×2 (09:11→16:35)
[2018-05-26] MEDS: Lactobacillus Rhamnosus GG (Probiotic) Cap PO SCH ×2 (09:11→21:34)
[2018-05-26] MEDS: Acetaminophen 500 MG Tab PO SCH ×3 (09:12→21:34)
[2018-05-26] MEDS: Carvedilol 25 MG Tab PO SCH (10:32)
[2018-05-26] MEDS ORDERED: Sodium Chloride 0.9% 500 ML IV SCH (16:15)
--- NOTE | 2018-05-26 17:43 | PCM.PN ---
- General Info Date of Service: 05/26/18 Subjective Update: Ms. Herzog and remained relatively stable until late this afternoon when she is develop some hypotension, likely secondary to dehydration with relatively poor oral intake. Plan had been for discharge to home today with hospice, she is now decided to pursue [facility] placement at least for a short period of time before going home with hospice. Functional Status: Reports: Pain Controlled, Urinating - Review of Systems General: Reports: Weakness. Denies: Fever, Chills Pulmonary: Reports: No Symptoms Cardiovascular: Reports: No Symptoms Gastrointestinal: Reports: No Symptoms - Patient Data Vitals - Most Recent: Last Vital Signs Temp 96.4 F 05/26/18 14:40 Pulse 86 05/26/18 14:40 Resp 18 05/26/18 14:40 BP 69/45 L 05/26/18 16:02 Pulse Ox 98 05/26/18 14:40 Weight - Most Recent: 173 lb 15.997 oz I&O - Last 24 Hours: Intake & Output 05/26/18 05/26/18 05/26/18 06:59 14:59 22:59 Intake Total 360 500 Balance 360 500 [facility] Results Last 24 Hours: Microbiology 05/22/18 21:10 Aerobic Blood Culture - Preliminary Blood - Venous - Lab Draw NO GROWTH AFTER 3 DAYS Anaerobic Blood Culture - Preliminary NO GROWTH AFTER 3 DAYS 05/22/18 21:00 Aerobic Blood Culture - Preliminary Blood - Venous - Iv Start NO GROWTH AFTER 3 DAYS Anaerobic Blood Culture - Preliminary NO GROWTH AFTER 3 DAYS Med Orders - Current: Current Medications Acetaminophen (Tylenol Extra Strength) 1,000 mg PO TID [facility] Last Admin: 05/26/18 13:57 Dose: 1,000 mg Ciprofloxacin (Ciprofloxacin Hcl) 500 mg PO BIDAC [facility] Last Admin: 05/26/18 16:35 Dose: 500 mg Lidocaine HCl 30 ml/ Al Hydroxide/Mg Hydroxide 30 ml/Diphenhydramine HCl 75 mg 0 ml PO Q4H PRN PRN Reason: MOUTH CARE Last Admin: 05/24/18 07:32 Dose: 30 ml Sodium Chloride (Normal Saline) 500 mls @ 500 mls/hr IV BOLUS [facility] Last Admin: 05/26/18 16:26 Dose: 500 mls/hr Sodium Chloride (Normal Saline) 1,000 mls @ 250 mls/hr IV ASDIRECTED [facility] Stop: 05/26/18 21:46 Sodium Chloride (Normal Saline) 1,000 mls @ 125 [facility]ls[facility] Ibuprofen (Motrin) 400 mg PO Q6H PRN PRN Reason: Pain (mild 1-3) Insulin Aspart (Novolog) 0 unit SUBCUT QIDACANDBED [facility]; Protocol Last Admin: 05/26/18 17:07 Dose: 3 units Lactobacillus Rhamnosus (Culturelle) 1 cap PO BID [facility] Last Admin: 05/26/18 09:11 Dose: 1 cap Loperamide HCl (Imodium) 2 mg PO QID PRN PRN Reason: Diarrhea Metformin HCl (Glucophage) 500 mg PO DAILY@0800 [facility] Last Admin: 05/26/18 09:11 Dose: 500 mg Morphine Sulfate (Morphine) 2 mg IVPUSH Q2H PRN PRN Reason: Pain (severe 7-10) Ondansetron HCl (Zofran Odt) 4 mg PO Q6H PRN PRN Reason: Nausea able to take PO Ondansetron HCl (Zofran) 4 mg IV Q6H PRN PRN Reason: Nausea/Vomiting Oxycodone HCl (Oxycodone) 5 mg PO Q4H PRN PRN Reason: Pain (moderate 4-6) Discontinued Medications Carvedilol (Coreg) 25 mg PO BID [facility] Last Admin: 05/26/18 10:32 Dose: Not Given Lactated Ringer's (Ringers, Lactated) 1,000 mls @ 999 [facility] Last Admin: 05/22/18 21:09 Dose: 999 mls/hr Piperacillin Sod/Tazobactam (Sod 3.375 gm/ Sodium Chloride) 50 mls @ 100 mls/ hr IV Q6H [facility] Last Admin: 05/23/18 03:42 Dose: 100 mls/hr Sodium Chloride (Normal Saline) 1,000 mls @ 125 [facility] Last Admin: 05/23/18 06:53 Dose: 125 mls/hr Piperacillin/Tazobactam/ (Dextrose 3.375 gm/ Premix) 50 mls @ 100 mls/hr IV Q6H [facility] Last Admin: 05/24/18 09:14 Dose: 100 mls/hr Sodium Chloride (Normal Saline) 1,000 mls @ 50 mls/hr IV [facility] Last Admin: 05/23/18 16:50 Dose: 50 mls/hr Sodium Chloride (Normal Saline) 500 mls @ 500 mls/hr IV ASDIRECTED [facility] Stop: 05/23/18 16:46 Last Admin: 05/23/18 15:49 Dose: 500 mls/hr Insulin Aspart (Novolog) 0 unit SUBCUT QIDACANDBED [facility]; Protocol Last Admin: 05/23/18 13:16 Dose: Not Given Insulin Aspart (Novolog) 3 unit SUBCUT ONETIME ONE Stop: 05/23/18 22:46 Last Admin: 05/24/18 01:39 Dose: Not Given - Exam General: Alert, Oriented, Cooperative, No Acute Distress Lungs: Clear to Auscultation, Normal Respiratory Effort Cardiovascular: Regular Rate, Regular Rhythm, No Murmurs GI/Abdominal Exam: Soft, No Organomegaly, No Distention, Tender. No: Guarding, Rigid, Rebound Extremities: Non-Tender, Pedal Edema Skin: Warm, Dry - Problem List Review Problem List Initiated/Reviewed/Updated: Yes - My Orders Last 24 Hours: My Active Orders 05/26/18 16:15 Sodium Chloride 0.9% [Normal Saline] 500 ml IV BOLUS 05/26/18 17:45 Sodium Chloride 0.9% [Normal Saline] 1,000 ml IV ASDIRECTED 05/26/18 21:45 Sodium Chloride 0.9% @ 125 MLS/HR (1000ml) Sodium Chloride 0.9% [Normal Saline] 1,000 ml IV ASDIRECTED - Plan Plan:: ASSESSMENT AND PLAN - Acute cystitis with sepsis - sepsis has resolved and lactic acid level is now normal. Patient more alert and interactive. Urine culture has grown pansensitive Escherichia coli -Ciprofloxacin 500 mg by mouth twice a day Hypotension-no ongoing evidence of active infection, likely secondary to poor oral intake with dehydration -Hold Coreg -IV fluids, she is already received 500 mL bolus, will do 250 mL/h for 4 hours then 125 mL per hour until a.m. Type 2 diabetes mellitus with hyperglycemia -improved from admission -metformin -high dose sliding scale insulin Metastatic breast cancer - oncology provider recently informed the patient that life expectancy is likely limited to a few months at this point. Patient no longer desires to have chemotherapy. after further discussion today she wishes to be DO NOT RESUSCITATE and DO NOT INTUBATE. -Outpatient follow-up as scheduled next Thursday Palliative care-patient would like to consider hospice admission, she is now decided on [facility] placement, on discharge from [facility] she would like to consider hospice at home Maintenance issues - - DVT prophylaxis - mechanical - GI prophylaxis - not indicated - Nutrition - diabetic diet - Arceo catheter - not indicated CODE STATUS - DNR/DNI Disposition - anticipate discharge to [facility], disposition pending Primary care physician - Ansley SANTIAGO
[2018-05-26] MEDS ORDERED: Sodium Chloride 0.9% 1,000 ML IV SCH ×2 (17:45→21:45)
[2018-05-27] MEDS: Insulin Aspart 100 Units/ML 3 ML Pen SUBCUT SCH ×4 (07:39→21:13)
[2018-05-27] MEDS: metFORMIN 500 MG Tab PO SCH (10:08)
[2018-05-27] MEDS: Lactobacillus Rhamnosus GG (Probiotic) Cap PO SCH ×2 (10:08→20:09)
[2018-05-27] MEDS: Ciprofloxacin 500 MG Tab PO SCH ×2 (10:08→15:34)
[2018-05-27] MEDS: Acetaminophen 500 MG Tab PO SCH ×3 (10:14→20:09)
--- NOTE | 2018-05-27 14:34 | PCM.PN ---
- General Info Date of Service: 05/27/18 Subjective Update: Ms. Herzog has been stable since yesterday, blood pressure has improved following IV fluid infusion. Disposition remains a problem, no available long-term beds that her insurance will cover. Current plan is for discharge to home tomorrow with hospice admission. Functional Status: Reports: Pain Controlled, Urinating - Review of Systems General: Reports: Weakness. Denies: Fever, Chills Pulmonary: Reports: No Symptoms Cardiovascular: Reports: No Symptoms Gastrointestinal: Reports: Abdominal Pain, Decreased Appetite. Denies: Constipation, Diarrhea, Difficulty Swallowing, Nausea, Vomiting Genitourinary: Reports: No Symptoms - Patient Data Vitals - Most Recent: Last Vital Signs Temp 97.4 F 05/27/18 11:30 Pulse 107 H 05/27/18 11:30 Resp 16 05/27/18 11:30 BP 85/60 L 05/27/18 11:30 Pulse Ox 98 05/27/18 11:30 Weight - Most Recent: 173 lb 15.997 oz I&O - Last 24 Hours: Intake & Output 05/26/18 05/27/18 05/27/18 22:59 06:59 14:59 Intake Total 980 1643 Balance 980 1643 [facility] Results Last 24 Hours: Microbiology 05/22/18 21:10 Aerobic Blood Culture - Preliminary Blood - Venous - Lab Draw NO GROWTH AFTER 4 DAYS Anaerobic Blood Culture - Preliminary NO GROWTH AFTER 4 DAYS 05/22/18 21:00 Aerobic Blood Culture - Preliminary Blood - Venous - Iv Start NO GROWTH AFTER 4 DAYS Anaerobic Blood Culture - Preliminary NO GROWTH AFTER 4 DAYS Med Orders - Current: Current Medications Acetaminophen (Tylenol Extra Strength) 1,000 mg PO TID [facility] Last Admin: 05/27/18 10:14 Dose: 1,000 mg Ciprofloxacin (Ciprofloxacin Hcl) 500 mg PO BIDAC [facility] Last Admin: 05/27/18 10:08 Dose: 500 mg Lidocaine HCl 30 ml/ Al Hydroxide/Mg Hydroxide 30 ml/Diphenhydramine HCl 75 mg 0 ml PO Q4H PRN PRN Reason: MOUTH CARE Last Admin: 05/24/18 07:32 Dose: 30 ml Ibuprofen (Motrin) 400 mg PO Q6H PRN PRN Reason: Pain (mild 1-3) Insulin Aspart (Novolog) 0 unit SUBCUT QIDACANDBED [facility]; Protocol Last Admin: 05/27/18 12:39 Dose: Not Given Lactobacillus Rhamnosus (Culturelle) 1 cap PO BID [facility] Last Admin: 05/27/18 10:08 Dose: 1 cap Loperamide HCl (Imodium) 2 mg PO QID PRN PRN Reason: Diarrhea Metformin HCl (Glucophage) 500 mg PO DAILY@0800 [facility] Last Admin: 05/27/18 10:08 Dose: 500 mg Morphine Sulfate (Morphine) 2 mg IVPUSH Q2H PRN PRN Reason: Pain (severe 7-10) Ondansetron HCl (Zofran Odt) 4 mg PO Q6H PRN PRN Reason: Nausea able to take PO Ondansetron HCl (Zofran) 4 mg IV Q6H PRN PRN Reason: Nausea/Vomiting Oxycodone HCl (Oxycodone) 5 mg PO Q4H PRN PRN Reason: Pain (moderate 4-6) Discontinued Medications Carvedilol (Coreg) 25 mg PO BID [facility] Last Admin: 05/26/18 10:32 Dose: Not Given Lactated Ringer's (Ringers, Lactated) 1,000 mls @ 999 mls[facility] Last Admin: 05/22/18 21:09 Dose: 999 mls/hr Piperacillin Sod/Tazobactam (Sod 3.375 gm/ Sodium Chloride) 50 mls @ 100 mls/ hr IV Q6H [facility] Last Admin: 05/23/18 03:42 Dose: 100 mls/hr Sodium Chloride (Normal Saline) 1,000 mls @ 125 mls/hr IV ASDIRECTED [facility] Last Admin: 05/23/18 06:53 Dose: 125 mls/hr Piperacillin/Tazobactam/ (Dextrose 3.375 gm/ Premix) 50 mls @ 100 mls/hr IV Q6H [facility] Last Admin: 05/24/18 09:14 Dose: 100 mls/hr Sodium Chloride (Normal Saline) 1,000 mls @ 50 mls/hr IV ASDIRECTED [facility] Last Admin: 05/23/18 16:50 Dose: 50 mls/hr Sodium Chloride (Normal Saline) 500 mls @ 500 mls/hr IV ASDIRECTED [facility] Stop: 05/23/18 16:46 Last Admin: 05/23/18 15:49 Dose: 500 mls/hr Sodium Chloride (Normal Saline) 500 mls @ 500 mls/hr IV BOLUS [facility] Last Admin: 05/26/18 16:26 Dose: 500 mls/hr Sodium Chloride (Normal Saline) 1,000 mls @ 250 mls/hr IV ASDIRECTED [facility] Stop: 05/26/18 21:46 Last Admin: 05/26/18 20:40 Dose: 250 mls/hr Sodium Chloride (Normal Saline) 1,000 mls @ 125 mls/hr IV ASDIRECTED [facility] Last Admin: 05/27/18 00:39 Dose: 125 mls/hr Insulin Aspart (Novolog) 0 unit SUBCUT QIDACANDBED [facility]; Protocol Last Admin: 05/23/18 13:16 Dose: Not Given Insulin Aspart (Novolog) 3 unit SUBCUT ONETIME ONE Stop: 05/23/18 22:46 Last Admin: 05/24/18 01:39 Dose: Not Given - Exam Quality Assessment: DVT Prophylaxis General: Alert, Oriented, Cooperative, No Acute Distress Lungs: Clear to Auscultation, Normal Respiratory Effort Cardiovascular: Regular Rate, Regular Rhythm, No Murmurs GI/Abdominal Exam: Soft, No Distention, Tender. No: Guarding, Rigid, Rebound Extremities: Non-Tender, Pedal Edema Skin: Warm, Dry - Problem List Review Problem List Initiated/Reviewed/Updated: Yes - My Orders Last 24 Hours: My Active Orders 05/27/18 08:19 Convert IV to Saline Lock [OM.PC] Routine - Plan Plan:: ASSESSMENT AND PLAN - Acute cystitis with sepsis - resolved -Discontinue antibiotic therapy she has received an adequate course of treatment Hypotension-Resolved -Hold Coreg. Type 2 diabetes mellitus with hyperglycemia -improved from admission -metformin -high dose sliding scale insulin Metastatic breast cancer - oncology provider recently informed the patient that life expectancy is likely limited to a few months at this point. Patient no longer desires to have chemotherapy. after further discussion today she wishes to be DO NOT RESUSCITATE and DO NOT INTUBATE. -Outpatient follow-up as scheduled next Thursday Palliative care-patient would like to consider hospice admission Maintenance issues - - DVT prophylaxis - mechanical - GI prophylaxis - not indicated - Nutrition - diabetic diet - Arceo catheter - not indicated CODE STATUS - DNR/DNI Disposition - anticipate discharge to home tomorrow with hospice admission Primary care physician - Ansley SANTIAGO
--- NOTE | 2018-05-27 19:09 | PCM.DCSUM1 ---
Discharge Summary - Hospital Course Brief History: Ms. Herzog is a 62-year-old woman who was admitted to the hospital through the emergency department with weakness and lethargy secondary to urinary tract infection with early sepsis as well as underlying metastatic breast cancer. Diagnosis: Stroke: No - Discharge Data Discharge Date: 05/28/18 Discharge Disposition: DC/Tfer to Hospice - Home 50 Condition: Poor - Discharge Diagnosis/Problem(s) (1) Sepsis due to urinary tract infection SNOMED Code(s): 418307518 ICD Code: A41.9 - SEPSIS, UNSPECIFIED ORGANISM; N39.0 - URINARY TRACT INFECTION, SITE NOT SPECIFIED Status: Acute Current Visit: Yes (2) Anemia of chronic disease SNOMED Code(s): 606100973 ICD Code: D63.8 - ANEMIA IN OTHER CHRONIC DISEASES CLASSIFIED ELSEWHERE Status: Acute Current Visit: No (3) Liver metastasis Status: Chronic Current Visit: No Problem Details: secondary to breast cancer (4) Breast cancer SNOMED Code(s): 310158331 ICD Code: C50.919 - MALIGNANT NEOPLASM OF UNSP SITE OF UNSPECIFIED FEMALE BREAST Status: Chronic Priority: Low Current Visit: No Qualifiers: Breast location: unspecified site of breast Estrogen receptor status: unspecified Patient sex: female Laterality: right Qualified Code(s): C50.911 - Malignant neoplasm of unspecified site of right female breast (5) Type 2 diabetes mellitus SNOMED Code(s): 01030674 ICD Code: E11.9 - TYPE 2 DIABETES MELLITUS WITHOUT COMPLICATIONS Status: Chronic Current Visit: No Qualifiers: 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 custodial insulin use: without terminal make up operator use 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 complication status: without complication Qualified Code(s): E11.9 - Type 2 diabetes mellitus without complications - Patient Summary/Data Consults: Consultations 05/24/18 07:00 PT Evaluation and Treatment [CONS] Routine Please Evaluate and Treat. PT Reason for Consult: Strengthening This query below is only for informational purposes and is not editable. Admission Diagnosis/Problem: Acute cystitis without hematuria Hospital Course: Charmaine presented to the emergency room with progressive weakness and lethargy. Because of her lethargy family provides most of the information. Family reports that she had chemotherapy on Thursday of this week and did fairly well through the rest of the week. On the morning prior to admission she seemed to be fairly normal and even into the afternoon seemed normal although her appetite was not as good as usual. She did not drink much water which was unusual. On the evening prior to admission she was very fatigued and went to bed early. She had chills throughout the day but did not experience any fevers that she is aware of. When family trying to wake her up on the morning of admission and she said she was very sleepy and did not want to get up. This persisted throughout the better part of the day. She was so weak that she could not get out of bed to go to the bathroom and soiled herself and the sheets. She is not currently endorsing any abdominal pain though she is very tender with palpation of the right side of the abdomen. She does not feel short of breath and has not been coughing. She has not noticed change in her urine or stool from baseline. Workup in the emergency room was suggestive of a urinary tract infection and early sepsis. She has received antibiotics and cultures have been collected. She 'll be admitted for additional management. She was given vigorous IV fluid replacement on admission per sepsis protocol and started on antibiotic therapy as noted above. Blood cultures remain negative throughout hospitalization but urine culture did grow out pansensitive Escherichia coli and antibiotic therapy was changed to oral ciprofloxacin. By the time of discharge she had completed a course of antibiotic therapy for the urinary tract infection and will not require further antibiotics after discharge. During the course of her hospital stay she decided not to pursue further chemotherapy or treatment of her metastatic breast cancer and decided to proceed with comfort cares only. Activity will be as tolerated and she will resume her usual diet. She will be admitted for hospice care after discharge from the hospital. Follow-up with primary care will be as needed. - Patient Instructions Diet: Usual Diet as Tolerated Activity: As Tolerated Other/Special Instructions: Admission to hospice care after discharge from hospital - Discharge Plan Prescriptions/Med Rec: LORazepam [LORazepam Intensol] 0.5 mg BUCCAL Q2H PRN #15 ml PRN Reason: Anxiety Morphine Sulfate 5 mg BUCCAL Q1H PRN #15 ml PRN Reason: Pain Home Medications: Home Meds Urea [Urea 40% Crm] 1 applic TOP DAILY 08/22/15 [History] metFORMIN [Glucophage] 500 mg PO DAILY 08/22/15 [History] Loperamide [Imodium] 2 mg PO QID PRN 01/31/18 [History] Lactobacillus Rhamnosus GG [Culturelle] 1 cap PO BID cap 02/01/18 [Rx] Acetaminophen [Acetaminophen Extra Strength] 1,000 mg PO TID #200 tablet [Rx] LORazepam [LORazepam Intensol] 0.5 mg BUCCAL Q2H PRN #15 ml 05/27/18 [Rx] Magnesium Oxide 400 mg PO TID #0 05/27/18 [Rx] Morphine Sulfate 5 mg BUCCAL Q1H PRN #15 ml 05/27/18 [Rx] Referrals: Ansley Bolden PA [Primary Care Provider] - - Discharge Summary/Plan Comment DC Time >30 min.: No - Patient Data Vitals - Most Recent: Last Vital Signs Temp 95 F L 05/27/18 15:12 Pulse 95 05/27/18 15:12 Resp 16 05/27/18 15:12 BP 96/62 05/27/18 15:12 Pulse Ox 98 05/27/18 15:12 Weight - Most Recent: 173 lb 15.997 oz I&O - Last 24 hours: Intake & Output 05/27/18 05/27/18 05/27/18 06:59 14:59 22:59 Intake Total 1643 Balance 1643 FLOYD Results - Last 24 hrs: Microbiology 05/22/18 21:10 Aerobic Blood Culture - Preliminary Blood - Venous - Lab Draw NO GROWTH AFTER 4 DAYS Anaerobic Blood Culture - Preliminary NO GROWTH AFTER 4 DAYS 05/22/18 21:00 Aerobic Blood Culture - Preliminary Blood - Venous - Iv Start NO GROWTH AFTER 4 DAYS Anaerobic Blood Culture - Preliminary NO GROWTH AFTER 4 DAYS Med Orders - Current: Current Medications Acetaminophen (Tylenol Extra Strength) 1,000 mg PO TID [facility] Last Admin: 05/27/18 15:34 Dose: 1,000 mg Ciprofloxacin (Ciprofloxacin Hcl) 500 mg PO BIDAC [facility] Last Admin: 05/27/18 15:34 Dose: 500 mg Lidocaine HCl 30 ml/ Al Hydroxide/Mg Hydroxide 30 ml/Diphenhydramine HCl 75 mg 0 ml PO Q4H PRN PRN Reason: MOUTH CARE Last Admin: 05/24/18 07:32 Dose: 30 ml Ibuprofen (Motrin) 400 mg PO Q6H PRN PRN Reason: Pain (mild 1-3) Insulin Aspart (Novolog) 0 unit SUBCUT QIDACANDBED [facility]; Protocol Last Admin: 05/27/18 17:24 Dose: 3 units Lactobacillus Rhamnosus (Culturelle) 1 cap PO BID [facility] Last Admin: 05/27/18 10:08 Dose: 1 cap Loperamide HCl (Imodium) 2 mg PO QID PRN PRN Reason: Diarrhea Metformin HCl (Glucophage) 500 mg PO DAILY@0800 [facility] Last Admin: 05/27/18 10:08 Dose: 500 mg Morphine Sulfate (Morphine) 2 mg IVPUSH Q2H PRN PRN Reason: Pain (severe 7-10) Ondansetron HCl (Zofran Odt) 4 mg PO Q6H PRN PRN Reason: Nausea able to take PO Ondansetron HCl (Zofran) 4 mg IV Q6H PRN PRN Reason: Nausea/Vomiting Oxycodone HCl (Oxycodone) 5 mg PO Q4H PRN PRN Reason: Pain (moderate 4-6) Discontinued Medications Carvedilol (Coreg) 25 mg PO BID [facility] Last Admin: 05/26/18 10:32 Dose: Not Given Lactated Ringer's (Ringers, Lactated) 1,000 mls @ 999 [facility]ls[facility] Last Admin: 05/22/18 21:09 Dose: 999 mls/hr Piperacillin Sod/Tazobactam (Sod 3.375 gm/ Sodium Chloride) 50 mls @ 100 mls/ hr IV Q6H [facility] Last Admin: 05/23/18 03:42 Dose: 100 mls/hr Sodium Chloride (Normal Saline) 1,000 mls @ 125 [facility]ls[facility] Last Admin: 05/23/18 06:53 Dose: 125 mls/hr Piperacillin/Tazobactam/ (Dextrose 3.375 gm/ Premix) 50 mls @ 100 mls/hr IV Q6H [facility] Last Admin: 05/24/18 09:14 Dose: 100 mls/hr Sodium Chloride (Normal Saline) 1,000 mls @ 50 mls/hr IV ASDIRECTED [facility] Last Admin: 05/23/18 16:50 Dose: 50 mls/hr Sodium Chloride (Normal Saline) 500 mls @ 500 [facility] Stop: 05/23/18 16:46 Last Admin: 05/23/18 15:49 Dose: 500 mls/hr Sodium Chloride (Normal Saline) 500 mls @ 500 mls/hr IV [facility] Last Admin: 05/26/18 16:26 Dose: 500 mls/hr Sodium Chloride (Normal Saline) 1,000 mls @ 250 mls/hr IV ASDIRECTED [facility]AK[facility] Stop: 05/26/18 21:46 Last Admin: 05/26/18 20:40 Dose: 250 mls/hr Sodium Chloride (Normal Saline) 1,000 mls @ 125 mls/hr IV ASDIRECTED [facility] Last Admin: 05/27/18 00:39 Dose: 125 mls/hr Insulin Aspart (Novolog) 0 unit SUBCUT QIDACANDBED [facility]; Protocol Last Admin: 05/23/18 13:16 Dose: Not Given Insulin Aspart (Novolog) 3 unit SUBCUT ONETIME ONE Stop: 05/23/18 22:46 Last Admin: 05/24/18 01:39 Dose: Not Given - Exam General: Reports: Alert, Oriented, Cooperative, Mild Distress Lungs: Reports: Clear to Auscultation, Normal Respiratory Effort Cardiovascular: Reports: Regular Rate, Regular Rhythm GI/Abdominal Exam: Soft, Tender. No: Distended, Guarding, Rigid, Rebound
[2018-05-28 07:39] VITALS: BP 98/69
[2018-05-28] MEDS: Acetaminophen 500 MG Tab PO SCH (08:07)
[2018-05-28] MEDS: Insulin Aspart 100 Units/ML 3 ML Pen SUBCUT SCH (08:07)
[2018-05-28] MEDS: Lactobacillus Rhamnosus GG (Probiotic) Cap PO SCH (08:07)
[2018-05-28] MEDS: Ciprofloxacin 500 MG Tab PO SCH (08:07)
[2018-05-28] MEDS: metFORMIN 500 MG Tab PO SCH (08:07)
== END 2018-05-28 10:32 | disposition hospice, home (50) | DRG 872 ==
LOC: JP.ED 19:36 → JP.MS 22:32
PROVIDERS: ADMIT Internal Medicine; ATTEND Internal Medicine
PROC: 30233N1 Transfusion of Nonautologous Red Blood Cells into Peripheral Vein, Percutaneous Approach (ICD-10-PCS; principal; 2018-05-24)
DX: A41.9 Sepsis, unspecified organism (principal); N39.0 Urinary tract infection, site not specified; N30.00 Acute cystitis without hematuria; E87.1 Hypo-osmolality and hyponatremia; N17.9 Acute kidney failure, unspecified; E87.2 Acidosis; C78.7 Secondary malignant neoplasm of liver and intrahepatic bile duct; I50.32 Chronic diastolic (congestive) heart failure; B96.20 Unspecified Escherichia coli [E. coli] as the cause of diseases classified elsewhere; D63.8 Anemia in other chronic diseases classified elsewhere; C50.911 Malignant neoplasm of unspecified site of right female breast; E78.00 Pure hypercholesterolemia, unspecified; M19.90 Unspecified osteoarthritis, unspecified site; E11.40 Type 2 diabetes mellitus with diabetic neuropathy, unspecified; Z88.8 Allergy status to other drugs, medicaments and biological substances; D64.9 Anemia, unspecified; C50.919 Malignant neoplasm of unspecified site of unspecified female breast; H26.9 Unspecified cataract; H54.7 Unspecified visual loss; I48.91 Unspecified atrial fibrillation; K13.79 Other lesions of oral mucosa; R53.1 Weakness; R53.83 Other fatigue; R50.9 Fever, unspecified; I95.9 Hypotension, unspecified; R60.0 Localized edema; R32 Unspecified urinary incontinence; R15.9 Full incontinence of feces; E11.65 Type 2 diabetes mellitus with hyperglycemia; E86.0 Dehydration; Z79.899 Other long term (current) drug therapy; Z87.440 Personal history of urinary (tract) infections; Z89.412 Acquired absence of left great toe; Z89.422 Acquired absence of other left toe(s); Z87.891 Personal history of nicotine dependence; Z79.84 Long term (current) use of oral hypoglycemic drugs; Z66 Do not resuscitate
CPT/HCPCS: 36415; 71045 ×2; 80053; 81001; 83605; 85025; 86140; 87040 ×2; 87086; 87088; 87186; 93005; 96361; 96365; 99285; J2543; J7030; J7050; J7120; 36430; 80048; 82962; 85018; 85027; 86850; 86900; 86901; 86920; 86922; 97110-GP; 97161-GP; A9270-GY; P9016